=== PATIENT | female | born 1945 | race Caucasian/White ===

== ENCOUNTER 2017-05-24 08:37 | Day surgery (SDC) | payer MEDICARE, OTHER ==
[~2017-05-24] VITALS: Ht 172.7 cm; Wt 77.1 kg
[~2017-05-24 08:37] MED LIST: AMLODIPINE BESYL5 MG PO; HYDROCHLOROTH12.5 MG PO
== END 2017-05-24 10:43 | disposition home or self-care (01) ==
LOC: DS 08:37 → DSVR 08:37 → OPS 08:37 → DS 09:45 → OPS 10:43
PROVIDERS: Ophthalmology
PROC: 08RK3JZ Replacement of Left Lens with Synthetic Substitute, Percutaneous Approach (ICD-10-PCS; principal; 2017-05-24 09:45)
DX: H25.813 Combined forms of age-related cataract, bilateral (principal); I10 Essential (primary) hypertension; M19.90 Unspecified osteoarthritis, unspecified site; Z98.890 Other specified postprocedural states; Z79.899 Other long term (current) drug therapy
CPT/HCPCS: J2250

== ENCOUNTER 2019-12-28 10:02 | Emergency (ER) | payer MEDICARE, OTHER ==
[~2019-12-28] VITALS: Ht 172.7 cm; Wt 68.0 kg
[~2019-12-28 10:02] MED LIST changes: +AFINITOR10 MG PO; +AVASTIN25 MG/1 ML IV; +CARBOPLATI10 MG/1 ML IV; +DEXAMETHASONE4 MG PO; +FEMARA2.5 MG PO; +IBUPROFEN800 MG PO; +LOMOTIL TABLET1 EACH PO; +LORAZEPAM1 MG PO; +MULTIVITAMINS1 EAC7 PO; +NIACINAMIDE500 MG PO; +NORCO 5-325 TA1 EACH PO; +ONDANSETRON ODT8 MG PO; +PACLITAXEL6 MG/1 ML IV; +UNISOM25 MG PO
--- OUTSIDE RECORDS SUMMARY | 2019-12-28 10:06 | XMS ---
PreManage Notification: LUIS IGLESIAS Security Backer Up Events No recent Security Events currently on file CRITERIA MET - PDMP CARE PROVIDERS ADRIANNE Balderrama MD,CHILANGO Lot Boss/Tooler Current PHONE: [phone] Lisa has no Care Guidelines for this patient. E.DSharon VISIT COUNT (12 MO.) 1 ELADIO Bishop TOTAL 1 NOTE: Visits indicate total known visits. ED/UCC VISIT TRACKING (12 MO.) 12/28/2019 10:03 ELADIO Tapia [place] TYPE: Emergency COMPLAINT: - WEAKNESS, DIZZYNESS INPATIENT VISIT TRACKING (12 MO.) 04/12/2019 08:28 Darren Lu [place] TYPE: Surgery DIAGNOSES: - Malignant neoplasm of uterus, part unspecified [email or web address]
[2019-12-28] MEDS ORDERED: ZOLPIDEM TARTRA10 MG PO (10:29)
--- NOTE | 2019-12-28 21:48 | EKG ---
[facility] [address] [facility] [place], [place] [address] Signed Normal sinus rhythm Normal ECG No previous ECGs available Confirmed by GWYN LIMA MD ([id number]) on 12/28/2019 9:47:47 PM Electronically Signed By: GWYN LIMA MD 12/28/19 2148 PATIENT NAME: LUIS IGLESIAS JOSSE Electrocardiogram DATE OF : 43 PHYSICIAN: GWYN LIMA MD REPORT #: [id number] REPORT IS CONFIDENTIAL AND NOT TO BE RELEASED WITHOUT AUTHORIZATION
== END 2019-12-28 14:30 | disposition home or self-care (01) ==
LOC: ED 10:02
DX: I95.1 Orthostatic hypotension (principal); E86.0 Dehydration; I10 Essential (primary) hypertension; Z91.013 Allergy to seafood; Z79.899 Other long term (current) drug therapy
CPT/HCPCS: 80053; 81001; 83735; 84484; 85025; 93005; 93010; 96361; 96374; 99285-25; J1100; J7030

== ENCOUNTER 2020-01-03 14:01 | Emergency (ER) | payer MEDICARE, OTHER ==
[~2020-01-03] VITALS: Ht 172.7 cm; Wt 68.0 kg
--- OUTSIDE RECORDS SUMMARY | ~2020-01-03 | XMS | Encounter Summary ---
Demographics + + + | Address | [address] | | | [place] [address] | + + + | Home Phone | | + + + | Preferred Language | Unknown | + + + | Marital Status | | + + + | Mandaen Affiliation | Unknown | + + + | Race | White | + + + | Ethnic Group | Not or | + + + Author + + + | Author | [facility] | | | and [place] | + + + | Organization | [facility] | | | and [place] | + + + | Address | Unknown | + + + | Phone | Unavailable | + + + Support + + +---------+ + | Name | Relationship | Address | Phone | + + +---------+ + | Sheron Bucio | ECON | Unknown | | + + +---------+ + Care Team Providers + +------+ + | Care Camera Technician Name | Role | Phone | + +------+ + | Tom Sheppard MD | PCP | | + +------+ + Reason for Referral Diagnostic/Screening (Routine) +--------+--------+ + + + + | Status | Reason | Specialty | Diagnoses / | Referred By | Referred To | | | | | Procedures | Contact | Contact | +--------+--------+ + + + + | Closed | | Radiology | Diagnoses | Phil, | [address] | | | | | Malignant | [place] | [address] | | | | | melanoma of | [place], [place] | [place], | | | | | uvea of | [address] | [place] [address] | | | | | right eye | [facility] | Phone: | | | | | (HCC) | [place], [place] | [phone] | | | | | Procedures | [address] | Fax: | | | | | CT Chest | Phone: | [phone] | | | | | Abdomen | [phone] | | | | | | Pelvis w | Fax: | | | | | | Contrast | [phone] | | +--------+--------+ + + + + Reason for Visit Diagnostic/Screening (Routine) +--------+--------+ + + + + | Status | Reason | Specialty | Diagnoses / | Referred By | Referred To | | | | | Procedures | Contact | Contact | +--------+--------+ + + + + | Closed | | Radiology | Diagnoses | Phil, | [address] | | | | | Malignant | [place] | [address] | | | | | melanoma of | [place] | [place], | | | | | uvea of | [address] | [place] [address] | | | | | right eye | [address] [facility] | Phone: | | | | | (HCC) | [place], [place] | [phone] | | | | | Procedures | [address] | Fax: | | | | | CT Chest | Phone: | [phone] | | | | | Abdomen | [phone] | | | | | | Pelvis w | Fax: | | | | | | Contrast | [phone] | | +--------+--------+ + + + + Encounter Details +--------+ + + + + | Date | Type | Department | Care Team | Description | +--------+ + + + + | 11/18/ | Hospital | [facility] | [place] Villarreal | Malignant melanoma | | 2017 | Encounter | [facility] [address] | [place] | of uvea of right eye | | | | [address] [place], | [address] [facility] | ([facility]) | | | | [place] [address] | [place] [address] | | | | | [phone] | [phone] | | | | | | | | +--------+ + + + + Social History + +-------+ +--------+------+ | Tobacco Use | Types | Packs/Day | Years | Date | | | | | Used | | + +-------+ +--------+------+ | Never Smoker | | | | | + +-------+ +--------+------+ + + +---------+ + | Alcohol Use | Drinks/Week | oz/Week | Comments | + + +---------+ + | Yes | 1 Glasses of wine | 4.0 | | | | 1 Cans of beer 2 | | | | | Shots of liquor | | | + + +---------+ + + + + | Sex Assigned at | Date Recorded | | | | + + + | Not on file | | + + + documented as of this encounter Medications at Time of Discharge + + + +---------+--------+ + | Medication | Sig | Dispensed | Refills | Start | End Date | | | | | | Date | | + + + +---------+--------+ + | amLODIPine | Take 2.5 mg by mouth | | 0 | | | | (NORVASC) 2.5 mg | Daily. | | | | | | tablet | | | | | | + + + +---------+--------+ + | Cholecalciferol | Take 1 capsule by | | 0 | | | | (VITAMIN D3) 400 | mouth Daily. | | | | | | UNITS CAPS | | | | | | + + + +---------+--------+ + | GLUCOSAMINE | Take 2 tablets by | | 0 | | | | CHONDROITIN COMPLX | mouth Daily. | | | | | | PO | 750mg-600mg | | | | | | | respectivley | | | | | + + + +---------+--------+ + | | Take 12.5 mg by | | 0 | | | | hydrochlorothiazide | mouth Daily. | | | | | | 25 mg tablet | | | | | | + + + +---------+--------+ + | MULTIPLE VITAMIN | Take by mouth. | | 0 | | | | PO | | | | | | + + + +---------+--------+ + | naproxen sodium | Take 440 mg by mouth | | 0 | | | | (ALEVE) 220 MG | as needed. | | | | | | tablet | | | | | | + + + +---------+--------+ + documented as of this encounter Plan of Treatment Not on filedocumented as of this encounter Procedures + +--------+ + + + | Procedure Name | Priori | Date/Time | Associated Diagnosis | Comments | | | ty | | | | + +--------+ + + + | CT CHEST ABDOMEN | Routin | 11/18/2016 | Malignant melanoma | Results for this | | PELVIS W CONTRAST | e | 11:00 AM | of uvea of right | procedure are in the | | | | PDT | eye (HCC) | results section. | + +--------+ + + + | POC BLOOD GASES | Routin | 11/18/2016 | | Results for this | | | e | 10:53 AM | | procedure are in the | | | | PDT | | results section. | + +--------+ + + + documented in this encounter Results CT Chest Abdomen Pelvis w Contrast (11/18/2016 11:00 AM PDT) + + | Specimen | + + | | + + + + + | Narrative | Performed At | + + + | CT CHEST ABDOMEN PELVIS W CONTRAST 11/18/2016 10:50 AM HISTORY: | [facility] | | Melanoma of right eye uvea, pre surgical check. COMPARISON: None. | | | PROTOCOL: Axial images of the chest, abdomen, and pelvis were | | | obtained after uneventful administration of 90 mL Omnipaque 350 and | | | oral contrast. Coronal and sagittal reformations were acquired. | | | CHEST FINDINGS: Neck base is normal. The heart is of normal size. | | | There is minimal atherosclerosis of the aorta. The pulmonary | | | arteries are unremarkable. SVC is normal. No enlarged lymph nodes | | | are seen in the mediastinum, gildardo, or axillae. Trachea and esophagus | | | are normal. Mild scarring are visualized in the lung apices. There | | | is no evidence for pleural effusion or pneumothorax. | | | ABDOMEN/PELVIS FINDINGS: The liver demonstrates normal parenchyma. | | | The gallbladder is normal. Biliary ducts are unremarkable. The | | | spleen is unremarkable. The pancreas demonstrates normal parenchyma | | | and a normal pancreatic duct. Adrenal glands are normal. The | | | right kidney and visualized ureter are normal. The left kidney and | | | visualized ureter are normal. Stomach, small bowel, and terminal | | | ileum are normal. The appendix has a normal appearance. Colon is | | | unremarkable. There is mild atherosclerosis of the aorta. Minimal | | | atherosclerosis are noted of the iliac arteries. Mild atherosclerosis | | | is seen of the left common femoral artery. There is no significant | | | abnormality in the portal veins, mesenteric veins, or systemic veins. | | | No enlarged lymph nodes are visualized within the omentum or | | | retroperitoneum. There is no evidence for ascites or free air. | | | Bladder is normal. The uterus has a bulky and heterogeneous | | | appearance likely outside energy sales representatives of the presence of fibroids. There | | | appears to be a necrotic fibroid with low-attenuation center in the | | | right fundus measuring 2.6 cm. BODY WALL FINDINGS: No obvious | | | lesions are visualized in the subcutaneous tissues. The osseous | | | structures, particularly the spine, demonstrate a somewhat | | | heterogeneous appearance likely due to diffuse osteopenia. There is | | | mild spondylosis. Moderate disc narrowing is at L2-3. Severe disc | | | narrowing is at L3-4 with endplate sclerosis. IMPRESSION - No | | | evidence for metastatic disease to the chest, abdomen, or pelvis. If | | | clinically indicated, a PET CT scan can be considered for further | | | evaluation. Fibroid uterus. An ultrasound can considered for | | | further characterization if clinically indicated. Dictated and | | | Signed by: Jaiden Mcelroy MD Electronically signed: 11/18/2016 2:48 | | | PM | | + + + + + | Procedure Note | + + | Tin, Rad Results In - 11/18/2016 2:[address] CHEST ABDOMEN PELVIS W CONTRAST | | 11/18/2016 10:50 AMHISTORY: Melanoma of right eye uvea, pre surgical check.COMPARISON: | | None.PROTOCOL: Axial images of the chest, abdomen, and pelvis were obtained | | afteruneventful administration of 90 mL Omnipaque 350 and oral contrast. Coronal | | andsagittal reformations were acquired.CHEST FINDINGS:Neck base is normal.The heart is | | of normal size. There is minimal atherosclerosis of the aorta. Thepulmonary arteries are | | unremarkable. SVC is normal.No enlarged lymph nodes are seen in the mediastinum, gildardo, | | or axillae. Tracheaand esophagus are normal.Mild scarring are visualized in the lung | | apices. There is no evidence forpleural effusion or pneumothorax.ABDOMEN/PELVIS | | FINDINGS:The liver demonstrates normal parenchyma. The gallbladder is normal. | | Biliaryducts are unremarkable.The spleen is unremarkable. The pancreas demonstrates | | normal parenchyma and anormal pancreatic duct. Adrenal glands are normal.The right | | kidney and visualized ureter are normal.The left kidney and visualized ureter are | | normal.Stomach, small bowel, and terminal ileum are normal. The appendix has a | | normalappearance. Colon is unremarkable.There is mild atherosclerosis of the aorta. | | Minimal atherosclerosis are noted ofthe iliac arteries. Mild atherosclerosis is seen of | | the left common femoralartery. There is no significant abnormality in the portal veins, | | mesentericveins, or systemic veins. No enlarged lymph nodes are visualized within the | | omentum or retroperitoneum.There is no evidence for ascites or free air.Bladder is | | normal.The uterus has a bulky and heterogeneous appearance likely outside energy sales representatives of | | thepresence of fibroids. There appears to be a necrotic fibroid withlow-attenuation | | center in the right fundus measuring 2.6 cm.BODY WALL FINDINGS:No obvious lesions are | | visualized in the subcutaneous tissues. The osseousstructures, particularly the spine, | | demonstrate a somewhat heterogeneousappearance likely due to diffuse osteopenia. There | | is mild spondylosis. Moderatedisc narrowing is at L2-3. Severe disc narrowing is at L3-4 | | with endplatesclerosis.IMPRESSION -No evidence for metastatic disease to the chest, | | abdomen, or pelvis. Ifclinically indicated, a PET CT scan can be considered for further | | evaluation.Fibroid uterus. An ultrasound can considered for further characterization | | ifclinically indicated.Dictated and Signed by: Jaiedn Mcelroy MD Electronically signed: | | 11/18/2016 2:48 PM | | | |The left kidney and visualized ureter are normal. | | | |Stomach, small bowel, and terminal ileum are normal. The appendix has a normal | |appearance. Colon is unremarkable. | | | |There is mild atherosclerosis of the aorta. Minimal atherosclerosis are noted of | |the iliac arteries. Mild atherosclerosis is seen of the left common femoral | |artery. There is no significant abnormality in the portal veins, mesenteric | |veins, or systemic veins. | | | |No enlarged lymph nodes are visualized within the omentum or retroperitoneum. | | | |There is no evidence for ascites or free air. | | | |Bladder is normal. | | | |The uterus has a bulky and heterogeneous appearance likely outside energy sales representatives of the | |presence of fibroids. There appears to be a necrotic fibroid with | |low-attenuation center in the right fundus measuring 2.6 cm. | | | |BODY WALL FINDINGS: | |No obvious lesions are visualized in the subcutaneous tissues. The osseous | |structures, particularly the spine, demonstrate a somewhat heterogeneous | |appearance likely due to diffuse osteopenia. There is mild spondylosis. Moderate | |disc narrowing is at L2-3. Severe disc narrowing is at L3-4 with endplate | |sclerosis. | | | |IMPRESSION - | |No evidence for metastatic disease to the chest, abdomen, or pelvis. If | |clinically indicated, a PET CT scan can be considered for further evaluation. | | | |Fibroid uterus. An ultrasound can considered for further characterization if | |clinically indicated. | | | |Dictated and Signed by: Jaiden Mcelroy MD | | Electronically signed: 11/18/2016 2:48 PM | + + + +---------+ + + | Performing | Address | City/State/Zipcode | Phone Number | | Organization | | | | + +---------+ + + | [facility] | | | | + +---------+ + + POC Blood Gases (11/18/2016 10:53 AM PDT) + +-------+ + + + | Component | Value | Ref Range | Performed | Pathologist | | | | | At | Signature | + +-------+ + + + | Specimen | Vein | | [facility] | | | Source | | | [facility] | | | | | | [facility] | | | | | | C[facility] - | | | | | | LABORATORY | | + +-------+ + + + | Creatinine, | 0.8 | 0.6 - 1.3 mg/dL | [facility] | | | POC | | | [facility] | | | | | | MEDICAL | | | | | | CENTER - | | | | | | LABORATORY | | + +-------+ + + + | eGFR, | 71 | 1 - 401 | [facility] | | | non- | | mL/min/1.73m2 | [facility] | | | [place] | | | MEDICAL | | | | | | CENTER - | | | | | | LABORATORY | | + +-------+ + + + + + | Specimen | + + | | + + + + + + + | Performing | Address | City/State/Zipcode | Phone Number | | Organization | | | | + + + + + | [facility] | [address] | [place] | [phone] | | 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
--- OUTSIDE RECORDS SUMMARY | ~2020-01-03 | XMS | Encounter Summary ---
Demographics + + + | Address | [address] | | | [place] [address] | + + + | Home Phone | | + + + | Preferred Language | Unknown | + + + | Marital Status | Single | + + + | Episcopal Affiliation | NON | + + + | Race | White | + + + | Ethnic Group | Not or | + + + Author + + + | Author | [facility] | + + + | Organization | [facility] | + + + | Address | Unknown | + + + | Phone | Unavailable | + + + Support + + +---------+ + | Name | Relationship | Address | Phone | + + +---------+ + | Sheron Rivera | ECON | Unknown | | + + +---------+ + Care Team Providers + +------+ + | Care Family Support Coordinator Name | Role | Phone | + +------+ + | Tom Sheppard MD | PCP | | + +------+ + Reason for Visit + + + | Reason | Comments | + + + | Care Coordination | | + + + Encounter Details +--------+ + + + + | Date | Type | Department | Care Team | Description | +--------+ + + + + | 11/10/ | Documentati | [facility] | Jennifer Hall, | Care Coordination | | 2016 | on | [facility] | ,PhD [address] | | | | | Oncology at [facility] | [address] | | | | | [address] | [place], [place] | | | | | [address] [facility] [address] | [address] | | | | | [place], [address] [place] [address] | [phone] | | | | | [place] [address] | | | | | | [phone] | | | +--------+ + + + + Social History + +-------+ +--------+------+ | Tobacco Use | Types | Packs/Day | Years | Date | | | | | Used | | + +-------+ +--------+------+ | Never Smoker | | | | | + +-------+ +--------+------+ + +---+---+---+ | Smokeless Tobacco: | | | | | Never Used | | | | + +---+---+---+ + + +---------+ + | Alcohol Use | Drinks/Week | oz/Week | Comments | + + +---------+ + | Yes | | | | + + +---------+ + + + + | Sex Assigned at | Date Recorded | | | | + + + | Not on file | | + + + documented as of this encounter Miscellaneous Notes Telephone Encounter - Taina Prescott - 11/21/2016 12:13 PM PDT11/21/16 Received pre-op with clearance from PCP. Phoned Patti who was heading home from her Radiation Oncology consult t his morning. she is ready to schedule plaque eye surgery. She is not available to schedule on 12/05/16 as her sister cannot bring her due to family wedding. Plan Schedule I-125 plaq ue on 12/12/16. 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 We discussed preparation for radioactive eye plaque treatment including visiting her PCP f or pre-op and returning to [facility] for a consultation with the Radiation Oncology department. All questions were answered and I believe the patient has a good understanding of what is re quired and will proceed. I phoned PCP office and spoke with Audrey. Faxed requested for pre-operative care. Audrey curry call the patient to scheduled appointment with PCP. Fabienne has placed the referral to Radiation Oncology. Phoned Patti and left a message with the above information. DANYELLE Menchaca documented in this encounter Plan of Treatment +--------+---------+ + + + | Date | Type | Specialty | Care Team | Description | +--------+---------+ + + + | 03/02/ | Office | Ophthalmology | Jennifer Hall, | | | 2019 | Visit | | ,PhD [address] | | | | [address] | | | | | | [place], [place] | | | | | | [address] | | | | | | [phone] | | | | | | | | +--------+---------+ + + + documented as of this encounter Visit Diagnoses Not on filedocumented in this encounter
--- OUTSIDE RECORDS SUMMARY | ~2020-01-03 | XMS | Encounter Summary ---
Demographics + + + | Address | [address] | | | [place] [address] | + + + | Home Phone | | + + + | Preferred Language | Unknown | + + + | Marital Status | Single | + + + | Mandaen Affiliation | NON | + + + | Race | White | + + + | Ethnic Group | Not or | + + + Author + + + | Author | [facility] | + + + | Organization | [facility] | + + + | Address | Unknown | + + + | Phone | Unavailable | + + + Support + + +---------+ + | Name | Relationship | Address | Phone | + + +---------+ + | Sheron Rivera | ECON | Unknown | | + + +---------+ + Care Team Providers + +------+ + | Care Road Machinery Inspector Name | Role | Phone | + +------+ + | Tom Sheppard MD | PCP | | + +------+ + Encounter Details +--------+ + + + + | Date | Type | Department | Care Team | Description | +--------+ + + + + | 08/21/ | MyChart | [facility] | Jennifer Hall, | Mm | | 2019 | Encounter | [facility] | ,PhD [address] | | | | | Oncology at [facility] | [address] | | | | | [address] | [place], [place] | | | | | [address] | [address] | | | | | [place], [address] floor | [phone] | | | | | [place] [address] | | | | | | [phone] | | | +--------+ + + + [...] + + +---------+ + | Yes | 2 Standard drinks | 2.0 | wine with dinner | | | or equivalent | | | + + +---------+ + + + + | Sex Assigned at | Date Recorded | | | | + + + | Not on file | | + + + documented as of this encounter Plan of Treatment +--------+---------+ + + + | Date | Type | Specialty | Care Team | Description | +--------+---------+ + + + | 03/02/ | Office | Ophthalmology | Jennifer Hall, | | | 2019 | Visit | | MDPhD [address] | | | | | | [address] | | | | | | [place], [place] | | | | | | [address] | | | | | | [phone] | | | | | | | | +--------+---------+ + + + documented as of this encounter Visit Diagnoses Not on filedocumented in this encounter"
--- OUTSIDE RECORDS SUMMARY | ~2020-01-03 | XMS | Encounter Summary ---
Demographics + + + | Address | [address] | | | [place] [address] | + + + | Home Phone | | + + + | Preferred Language | Unknown | + + + | Marital Status | | + + + | Denominational Affiliation | Unknown | + + + | Race | White | + + + | Ethnic Group | Not or | + + + Author + + + | Author | [facility] | | | and [place] | + + + | Organization | [facility] | | | [...] Team Providers + +------+ + | Care Chain Hooker Name | Role | Phone | + +------+ + | Tom Sheppard MD | PCP | | + +------+ + Reason for Visit Service/Procedure (Routine) + +--------+ + + + + | Status | Reason | Specialty | Diagnoses / | Referred By | Referred To | | | | | Procedures | Contact | Contact | + +--------+ + + + + | Authorized | | Infusion | Diagnoses | Brett | [facility] | | | | Therapy | Endometrial | Bimal Ruiz, | Infusion [address] | | | | | cancer | PharmD [address] | [address] [place] | | | | | (HCC) | [address] | [place], | | | | | Procedures | [place] | [place] [address] | | | | | [place] | [place] | Phone: | | | | | [place] | [address] | [phone] | | | | | [place] | Phone: | Fax: | | | | | [place] | [phone] | [phone] | | | | | DEXAMETHASON | Fax: | | | | | | E, .25 MG | [phone] | | | | | | AL | | | | | | | FOSAPREPITAN | | | | | | | T INJECTION, | | | | | | | 1 MG AL | | | | | | | LORAZEPAM | | | | | | | INJECTION, 2 | | | | | | | MG AL | | | | | | | INJECTION, | | | | | | | FAMOTIDINE, | | | | | | | 20 MG AL | | | | | | | DIPHENHYDRAM | | | | | | | INE HCL | | | | | | | INJECTIO, 50 | | | | | | | MG AL | | | | | | | PACLITAXEL | | | | | | | INJECTION, | | | | | | | 1MG AL | | | | | | | CARBOPLATIN | | | | | | | INJECTION, | | | | | | | 50 MG AL | | | | | | | ADRENALIN | | | | | | | EPINEPHRINE | | | | | | | INJECT, .1 | | | | | | | MG AL | | | | | | | METHYLPREDNI | | | | | | | SOLONE | | | | | | | INJECTION, | | | | | | | 125 MG AL | | | | | | | ALBUTEROL | | | | | | | COMP CON, 1 | | | | | | | MG AL | | | | | | | NORMAL | | | | | | | SALINE | | | | | | | SOLUTION | | | | | | | INFUS, 500 | | | | | | | ML AL | | | | | | | NORMAL | | | | | | | SALINE | | | | | | | SOLUTION | | | | | | | INFUS, 250 | | | | | | | ML AL | | | | | | | STERILE | | | | | | | WATER/SALINE | | | | | | | , 10 ML AL | | | | | | | CHEMOTHER, | | | | | | | IV PUSH,EA | | | | | | | ADD DRUG AL | | | | | | | CHEMOTHER, | | | | | | | IV INFUSION, | | | | | | | 1 HR AL | | | | | | | CHEMOTHER, | | | | | | | IV INFUSION, | | | | | | | EA HR AL | | | | | | | CHEMOTHER,NO | | | | | | | N-HORMONE | | | | | | | ANTI-NEOPL, | | | | | | | SUB-Q/IM AL | | | | | | | CHEMOTHER | | | | | | | HORMON | | | | | | | ANTINEOPL | | | | | | | SUB-Q/IM AL | | | | | | | IV | | | | | | | INFUSION, | | | | | | | HYDRATION, | | | | | | | 31-60 MIN | | | | | | | AL IV | | | | | | | INFUSION, | | | | | | | HYDRATION, | | | | | | | EA ADD HOUR | | | | | | | AL INJ | | | | | | | MVASI 10 MG | | | + +--------+ + + + + Encounter Details +--------+ + + + + | Date | Type | Department | Care Team | Description | +--------+ + + + + | 10/10/ | Hospital | [facility] | Marc Denny | Endometrial cancer | | 2020 | Encounter | MED CTR CHE[facility] | MD Stephanie [address] | (HCC) (Primary Dx) | | | | INFUSION [address] [place], [place] | | | | | [place], | [address] | | | | | [place] [address] | | | | | | [phone] | | | +--------+ + + + [...] + + documented as of this encounter Last Filed Vital Signs + + + + + | Vital Sign | Reading | Time Taken | Comments | + + + + + | Blood Pressure | 140/68 | 10/11/2019 1:31 PM | | | | | PDT | | + + + + + | Pulse | 94 | 10/11/2019 1:31 PM | | | | | PDT | | + + + + + | Temperature | 36.9 C (98.4 F) | 10/11/2019 1:31 PM | | | | | PDT | | + + + + + | Respiratory Rate | 18 | 10/11/2019 1:31 PM | | | | | PDT | | + + + + + | Oxygen Saturation | 98% | 10/11/2019 1:31 PM | | | | | PDT | | + + + + + | Inhaled Oxygen | - | - | | | Concentration | | | | + + + + + | Weight | - | - | | + + + + + | Height | - | - | | + + + + + | Body Mass Index | - | - | | + + + + + documented in this encounter Medications at Time of Discharge + + + +---------+ + + | Medication | Sig | Dispensed | Refills | Start | End Date | | | | | | Date | | + + + +---------+ + + | amLODIPine | Take 2.5 mg by mouth | | 0 | | | | (NORVASC) 2.5 mg | Daily. | | | | | | tablet | | | | | | + + + +---------+ + + | Cholecalciferol | Take 1 capsule by | | 0 | | | | (VITAMIN D3) 400 | mouth Daily. | | | | | | UNITS CAPS | | | | | | + + + +---------+ + + | GLUCOSAMINE | Take 2 tablets by | | 0 | | | | CHONDROITIN COMPLX | mouth Daily. | | | | | | PO | 750mg-600mg | | | | | | | respectivley | | | | | + + + +---------+ + + | | Take 12.5 mg by | | 0 | | | | hydrochlorothiazide | mouth Daily. | | | | | | 25 mg tablet | | | | | | + + + +---------+ + + | LORazepam (ATIVAN) | TAKE 1 TABLET BY | | 0 | 09/20/19 | | | 1 mg tablet | MOUTH EVERY 4 HOURS | | | 20 | | | | NEEDED FOR | | | | | | | NAUSEA, ANXIETY, AND | | | | | | | RESTLESSNESS. | | | | | + + + +---------+ + + | MULTIPLE VITAMIN | Take by mouth. | | 0 | | | | PO | | | | | | + + + +---------+ + + | naproxen sodium | Take 440 mg by mouth | | 0 | | | | (ALEVE) 220 MG | as needed. | | | | | | tablet | | | | | | + + + +---------+ + + documented as of this encounter Progress Notes Francesca Tran RN - 10/11/2019 1:45 PM PDTDc/d amb with solar design engineer. Has return appts. documented in this encounter Miscellaneous Notes Treatment Plan - Francesca Tran RN - 10/11/2019 8:14 AM PDTViewed chart for weight, v ital signs and lab results. Also viewed chart for completion of medication and allergy revi ew prior to treatment.Francesca Tran RNDATE/TIME: 10/11/2019 8:15 AM PDTElectronically si gned by Francesca Tran RN at 10/11/2019 8:15 AM PDTdocumented in this encounter Plan of Treatment Not on filedocumented as of this encounter Procedures + +--------+ + + + | Procedure Name | Priori | Date/Time | Associated Diagnosis | Comments | | | ty | | | | + +--------+ + + + | CBC WITH | STAT | 10/11/2019 | Endometrial cancer | Results for this | | DIFFERENTIAL | | 7:30 AM | (HCC) | procedure are in the | | | | PDT | | results section. | + +--------+ + + + | COMPREHENSIVE | STAT | 10/11/2019 | Endometrial cancer | Results for this | | METABOLIC PANEL | | 7:30 AM | (HCC) | procedure are in the | | | | PDT | | results section. | + +--------+ + + + documented in this encounter Results Comprehensive Metabolic Panel (10/11/2019 7:30 AM PDT) + + + + + + | Component | Value | Ref Range | Performed | Pathologist | | | | | At | Signature | + + + + + + | Na | 139 | 136 - 145 | [facility] | | | | | mmol/L | [facility] | | | | | | [facility] | | | | | | [facility] - | | | | | | LABORATORY | | + + + + + + | K | 3.7 | 3.4 - 5.1 | [facility] | | | | | mmol/L | [facility] | | | | | | [facility] | | | | | | [facility] - | | | | | | LABORATORY | | + + + + + + | Cl | 104 | 98 - 107 mmol/L | [facility] | | | | | | [facility] | | | | | | [facility] | | | | | | [facility] - | | | | | | LABORATORY | | + + + + + + | CO2 | 28 | 20 - 31 mmol/L | [facility] | | | | | | [facility] | | | | | | [facility] | | | | | | [facility] - | | | | | | LAB[facility]ATORY | | + + + + + + | Anion Gap | 7 | 3 - 16 mmol/L | [facility] | | | | | | [facility] | | | | | | [facility] | | | | | | [facility] - | | | | | | LAB[facility]ATORY | | + + + + + + | Glucose | 100 | 60 - 106 mg/dL | [facility] | | | | | | [facility] | | | | | | [facility] | | | | | | [facility] - | | | | | | LABORATORY | | + + + + + + | BUN | 17 | 9 - 23 mg/dL | [facility] | | | | | | [facility] | | | | | | [facility] | | | | | | C[facility] - | | | | | | LABORATORY | | + + + + + + | Creatinine | 0.89 | 0.55 - 1.02 | [facility] | | | | | mg/dL | [facility] | | | [facility] | | [facility] | | | | | | CENTER - | | | | | | LABORATORY | | + + + + + + | eGFR, | >60Comment: GLOMERULAR | >=60 | [facility] | | | non- | FILTRATION | mL/min/1.73m2 | [facility] | | | [place] | RATE,ESTIMATED | | MEDICAL | | | | mL/min/1.91h8Xjko than | | CENTER - | | | | 60 Chronic kidney | | LABORATORY | | | | disease,if found over a | | | | | | 3-month period.Less than | | | | | | 15 Kidney failureFor | | | | | | | | | | | | Americans,multiply the | | | | | | calculated GFR by 1.21. | | | | | | | | | | + + + + + + | Calcium | 9.9 | 8.7 - 10.4 | [facility] | | | | | mg/dL | [facility] | | | | | | MEDICAL | | | | | | CENTER - | | | | | | LABORATORY | | + + + + + + | Albumin | 4.5 | 3.2 - 4.8 g/dL | [facility] | | | | | | [facility] | | | | | | MEDICAL | | | | | | CENTER - | | | | | | LABORATORY | | + + + + + + | Bilirubin | 0.3 | 0.3 - 1.2 mg/dL | [facility] | | | Total | | | [facility] | | | | | | MEDICAL | | | | | | CENTER - | | | | | | LABORATORY | | + + + + + + | Total | 7.3 | 5.7 - 8.2 g/dL | [facility] | | | Protein | | | [facility] | | | | | | MEDICAL | | | | | | CENTER - | | | | | | LABORATORY | | + + + + + + | AST | 34 | 0 - 34 U/L | [facility] | | | | | | [facility] | | | | | | MEDICAL | | | | | | CENTER - | | | | | | LABORATORY | | + + + + + + | ALT | 36 | 10 - 49 U/L | [facility] | | | | | | [facility] | | | | | | MEDICAL | | | | | | CENTER - | | | | | | LABORATORY | | + + + + + + | Alkaline | 164 (H) | 46 - 116 U/L | [facility] | | | Phosphatase | | | [facility] | | | | | | MEDICAL | | | | | | CENTER - | | | | | | LABORATORY | | + + + + + + | Globulin | 2.8 | 2.1 - 3.8 g/dL | [facility] | | | | | | [facility] | | | | | | MEDICAL | | | | | | CENTER - | | | | | | LABORATORY | | + + + + + + | Albumin/Marlys | 1.6 | 0.8 - 1.9 | [facility] | | | bulin Ratio | | | [facility] | | | | | | [facility] | | | | | | CENTER - | | | | | | LABORATORY | | + + + + + + | BUN/Creatin | 19.1 | | [facility] | | | ine Ratio | | | [facility] | | | [facility] | | [facility] | | | | | | CENTER - | | | | | | LABORATORY | | + + + + + + + + | Specimen | + + | Blood | + + + + + + + | Performing | Address | City/State/Zipcode | Phone Number | | Organization | | | | + + + + + | [facility] | [address] | [place] | [phone] | | [facility] | | [address] | | | - LABORATORY | | | | + + + + + CBC with Differential (10/11/2019 7:30 AM PDT) + + + + + + | Component | Value | Ref Range | Performed | Pathologist | | | | | At | Signature | + + + + + + | White Blood | 7.0 | 4.0 - 11.0 K/uL | [facility] | | | Cells | | | [facility] | | | | | | MEDICAL | | | | | | CENTER - | | | | | | LABORATORY | | + + + + + + | Red Blood | 4.29 | 3.70 - 5.20 | [facility] | | | Cells | | M/uL | [facility] | | | | | | MEDICAL | | | | | | CENTER - | | | | | | LABORATORY | | + + + + + + | Hemoglobin | 12.9 | 11.5 - 16.0 | [facility] | | | | | g/dL | [facility] | | | | | | MEDICAL | | | | | | CENTER - | | | | | | LABORATORY | | + + + + + + | Hematocrit | 39.0 | 34.0 - 47.0 % | [facility] | | | | | | [facility] | | | | | | [facility]ICAL | | | | | | CENTER - | | | | | | LABORATORY | | + + + + + + | MCV | 90.9 | 83.0 - 101.0 fL | [facility] | | | | | | [facility] | | | | | | [facility]ICAL | | | | | | CENTER - | | | | | | LABORATORY | | + + + + + + | MCH | 30.1 | 28.0 - 35.0 pg | [facility] | | | | | | [facility] | | | | | | [facility] | | | | | | C[facility] - | | | | | | LABORATORY | | + + + + + + | MCHC | 33.1 | 32.0 - 36.0 | [facility] | | | | | g/dL | [facility] | | | | | | MEDICAL | | | | | | CENTER - | | | | | | LABORATORY | | + + + + + + | RDW-CV | 23.6 (H) | <15.0 % | [facility] | | | | | | [facility] | | | | | | [facility] | | | | | | CENTER - | | | | | | LABORATORY | | + + + + + + | RDW-SD | 75.0 (H) | 35.1 - 46.3 fL | [facility] | | | | | | [facility] | | [facility] | | | [facility] | | | | | | CENTER - | | | | | | LABORATORY | | + + + + + + | Platelet | 159 | 140 - 440 K/uL | [facility] | | | Count | | | [facility] | | | | | | MEDICAL | | | | | | CENTER - | | | | | | LABORATORY | | + + + + + + | MPV | 9.0 | 6.5 - 12.4 fL | [facility] | | | | | | [facility] | | | | | | MEDICAL | | | | | | CENTER - | | | | | | LABORATORY | | + + + + + + | % | 61.4 | 45.0 - 82.0 % | [facility] | | | Neutrophils | | | [facility] | | | | | | MEDICAL | | | | | | CENTER - | | | | | | LABORATORY | | + + + + + + | % | 24.8 | 20.0 - 45.0 % | [facility] | | | Lymphocytes | | | [facility] | | | | | | MED[facility] | | | | | | CENTER - | | | | | | LABORATORY | | + + + + + + | % Monocytes | 12.1 (H) | 4.0 - 12.0 % | [facility] | | | | | | [facility] | | | | | | MEDICAL | | | | | | CENTER - | | | | | | LABORATORY | | + + + + + + | % | 0.4 | 0.0 - 5.0 % | [facility] | | | Eosinophils | | | [facility] | | | | | | MEDICAL | | | | | | CENTER - | | | | | | LABORATORY | | + + + + + + | % Basophils | 0.7 | 0.0 - 1.0 % | [facility] | | | | | | [facility] | | | | | | MEDICAL | | | | | | CENTER - | | | | | | LABORATORY | | + + + + + + | % Immature | 0.6 (H)Comment: | 0.0 - 0.4 % | [facility] | | | Granulocyte | Preliminary studies have | | [facility] | | | s | indicated the IG% | | MEDICAL | | | | and/or IG# show promise | | CENTER - | | | | as an early indicator | | LABORATORY | | | | for infection. | | | | + + + + + + | Absolute | 4.28 | 1.80 - 8.50 | [facility] | | | Neutrophils | | K/uL | [facility] | | | | | | MEDICAL | | | | | | CENTER - | | | | | | LABORATORY | | + + + + + + | Absolute | 1.73 | 0.60 - 3.20 | [facility] | | | Lymphocytes | | K/uL | [facility] | | | | | | MEDICAL | | | | | | CENTER - | | | | | | LABORATORY | | + + + + + + | Absolute | 0.84 | 0.00 - 1.00 | [facility] | | | Monocytes | | K/uL | [facility] | | | | | | MEDICAL | | | | | | CENTER - | | | | | | LABORATORY | | + + + + + + | Absolute | 0.03 | 0.00 - 0.40 | [facility] | | | Eosinophils | | K/uL | [facility] | | | | | | MEDICAL | | | | | | CENTER - | | | | | | LABORATORY | | + + + + + + | Absolute | 0.05 | 0.00 - 0.10 | [facility] | | | Basophils | | K/uL | [facility] | | | | | | MEDICAL | | | | | | CENTER - | | | | | | LABORATORY | | + + + + + + | Absolute | 0.04 (H) | 0.00 - 0.03 | [facility] | | | Immature | | K/uL | [facility] | | | Granulocyte | | | MEDICAL | | | s | | | CENTER - | | | | | | LABORATORY | | + + + + + + | % nRBC | 0 | 0 - 2 per 100 | [facility] | | | | | WBCs | [facility] | | | | | | MEDICAL | | | | | | CENTER - | | | | | | LABORATORY | | + + + + + + | Absolute | 0.00 | 0.00 - 0.01 | [facility] | | | nRBC | | K/uL | [facility] | | | | | | MEDICAL | | | | | | CENTER - | | | | | | LABORATORY | | + + + + + + + + | Specimen | + + | Blood | + + + + + + + | Performing | Address | City/State/Zipcode | Phone Number | | Organization | | | | + + + + + | [facility] | [address] | [place] | [phone] | | [facility] | | [address] | | | - LABORATORY | | | | + + + + + documented in this encounter Visit Diagnoses + + | Diagnosis | + + | Endometrial cancer (HCC) - Primary Malignant neoplasm of corpus uteri, except isthmus | + + documented in this encounter Administered Medications + +--------+ +--------+------+------+ | Medication Order | MAR | Action | Dose | Rate | Site | | | Action | Date | | | | + +--------+ +--------+------+------+ | acetaminophen (TYLENOL) tablet | Given | 10/11/19 | 650 mg | | | | 650 mg 650 mg, Oral, ONCE, Fri | | 20 8:31 | | | | | 10/11/19 at 0815, For 1 dose | | AM PDT | | | | + +--------+ +--------+------+------+ +---+---+ | | | +---+---+ + +-------+ +--------+---+---+ | aprepitant (CINVANTI) injection | Given | 10/11/19 | 130 mg | | | | 130 mg 130 mg, IV Push, ONCE, | | 20 8:31 | | | | | 10/11/19 at 0815, For 1 dose, | | AM PDT | | | | | Administer 30 minutes prior to | | | | | | | chemotherapy. Administer slowly | | | | | | | over 2 minutes, | | | | | | + +-------+ +--------+---+---+ +---+---+ | | | +---+---+ + +---------+ + +-------+---+ | bevacizumab-awwb (MVASI) 1,000 | New Bag | 10/11/19 | 1,000 mg | 200 | | | mg in sodium chloride 0.9% 100 mL | | 20 9:08 | | mL/hr | | | infusion 1,000 mg (rounded from | | AM PDT | | | | | 1,020 mg = 15 mg/kg | | | | | | | 68 kg Order-specific weight), | | | | | | | Intravenous, Administer over 30 | | | | | | | Minutes, ONCE, 10/11/19 at | | | | | | | 0845, For 1 dose, | | | | | | | Bevacizumab-awwb can be safely | | | | | | | administered in adults at a rate | | | | | | | of 0.5 mg/kg/min. (5 mg/kg doses | | | | | | | over 10 min, 7.5 mg/kg doses over | | | | | | | 15 min, 10 mg/kg doses over 20 | | | | | | | min, 15 mg/kg doses over 30 | | | | | | | min.), | | | | | | + +---------+ + +-------+---+ +---+---+ | | | +---+---+ + +---------+ +--------+-------+---+ | CARBOplatin (PARAPLATIN) 400 mg | New Bag | 10/11/19 | 400 mg | 1080 | | | in sodium chloride 0.9% 500 mL | | 20 12:42 | | mL/hr | | | infusion (GOG) 400 mg (Target | | PM PDT | | | | | AUC = 5), Intravenous, Administer | | | | | | | over 30 Minutes, ONCE, Fri | | | | | | | 10/11/19 at 1200, For 1 dose, | | | | | | | Chemotherapy: Use appropriate | | | | | | | handling precautions. Administer | | | | | | | AFTER PACLitaxel., | | | | | | + +---------+ +--------+-------+---+ +---+---+ | | | +---+---+ + +-------+ +-------+---+---+ | diphenhydrAMINE (BENADRYL) | Given | 10/11/19 | 25 mg | | | | injection 25 mg 25 mg, | | 20 8:31 | | | | | Intravenous, ONCE, Mon10/11/19 at | | AM PDT | | | | | 0815, For 1 dose, Administer 30 | | | | | | | minutes prior to chemotherapy., | | | | | | + +-------+ +-------+---+---+ +---+---+ | | | +---+---+ + +-------+ +-------+---+---+ | famotidine (PEPCID) injection | Given | 10/11/19 | 20 mg | | | | 20 mg 20 mg, Intravenous, ONCE, | | 20 8:31 | | | | | Mon10/11/19 at 0815, For 1 dose, | | AM PDT | | | | | Keep in refrigerator. Administer | | | | | | | 30 minutes prior to chemotherapy. | | | | | | | Dilute 2 mL of famotidine with 8 | | | | | | | mL of normal saline to a final | | | | | | | concentration of 2 mg/mL. | | | | | | | Administer ordered dose over a | | | | | | | period of at least 2 minutes., | | | | | | + +-------+ +-------+---+---+ +---+---+ | | | +---+---+ + +---------+ +------+--------+---+ | ondansetron 8 mg, dexamethasone | New Bag | 10/11/19 | 8 mg | 217.6 | | | (DECADRON) 4 mg in sodium | | 20 8:49 | | mL/hr | | | chloride 0.9% 50 mL IVPB 8 mg, | | AM PDT | | | | | Intravenous, Administer over 15 | | | | | | | Minutes, ONCE, Mon10/11/19 at | | | | | | | 0815, For 1 dose | | | | | | + +---------+ +------+--------+---+ +---+---+ | | | +---+---+ + +---------+ +--------+--------+---+ | PACLitaxel (TAXOL) 318 mg in | New Bag | 10/11/19 | 318 mg | 166.7 | | | sodium chloride 0.9% 447 mL | | 20 9:43 | | mL/hr | | | infusion 318 mg (rounded from | | AM PDT | | | | | 316.75 mg = 175 mg/m2 | | | | | | | 1.81 m2 Order-specific BSA), | | | | | | | Intravenous, Administer over 3 | | | | | | | Hours, ONCE, 6/19/20 at 0900, | | | | | | | For 1 dose, Chemotherapy: Use | | | | | | | appropriate handling precautions. | | | | | | | Vesicant. Use 0.22 micron filter | | | | | | | and non-DEHP tubing for | | | | | | | administration. This drug has a | | | | | | | high incidence of infusion | | | | | | | reactions. Patient must be | | | | | | | directly and frequently observed | | | | | | | during drug administration., | | | | | | + +---------+ +--------+--------+---+ +---+---+ | | | +---+---+ documented in this encounter"
--- OUTSIDE RECORDS SUMMARY | ~2020-01-03 | XMS | Encounter Summary ---
Demographics + + + | Address | [address] | | | [place] [address] | + + + | Home Phone | | + + + | Preferred Language | Unknown | + + + | Marital Status | Single | + + + | Rastafarian Affiliation | NON | + + + | Race | White | + + + | Ethnic Group | Not or | + + + Author + + + | Author | [facility] | + + + | Organization | [facility] | + + + | Address | Unknown | + + + | Phone | Unavailable | + + + Support + + +---------+ + | Name | Relationship | Address | Phone | + + +---------+ + | Sheron Rivera | ECON | Unknown | | + + +---------+ + Care Team Providers + +------+ + | Care Golf Stud Riveter Name | Role | Phone | + +------+ + | Tom Sheppard MD | PCP | | + +------+ + Encounter Details +--------+ + + + + | Date | Type | Department | Care Team | Description | +--------+ + + + + | 02/12/ | MyChart | [facility] | Jennifer Hall, | referral | | 2018 | Encounter | [facility] | ,PhD 3401 | | | | | Oncology at [facility] | [facility] | | | | | [address] | [place], [place] | | | | | [address] | [address] | | | | | [place], [address] floor | [phone] | | | | | [place] [address] | | | | | | [phone] | | | +--------+ + + + [...] | 2019 | Visit | | MDPhD [address] | | | | | | [address] | | | | | | [place], [place] | | | | | | [address] | | | | | | [phone] | | | | | | | | +--------+---------+ + + + documented as of this encounter Visit Diagnoses Not on filedocumented in this encounter"
--- OUTSIDE RECORDS SUMMARY | ~2020-01-03 | XMS | Encounter Summary ---
Demographics + + + | Address | [address] | | | [place] [address] | + + + | Home Phone | | + + + | Preferred Language | Unknown | + + + | Marital Status | Single | + + + | Jain Affiliation | NON | + + + [...] Team Providers + +------+ + | Care Net C Developer Name | Role | Phone | + [...] | Encounter | [facility] | ,PhD 5064 | | | | | Oncology at [facility] | [facility] | | | | | [address] | [place], [place] | | | | | [address] | [address] | | | | | Anais, 5th floor | [phone] | | | | | [place] [address] | | | | | | [phone] | | | +--------+ + + + [...] | 2019 | Visit | | MDPhD [address] | | | | | | Lottie [facility]tz | | | | | | [place], [place] | | | | | | [address] | | | | | | [phone] | | | | | | | | +--------+---------+ + + + documented as of this encounter Visit Diagnoses Not on filedocumented in this encounter"
--- OUTSIDE RECORDS SUMMARY | ~2020-01-03 | XMS | Encounter Summary ---
Demographics + + + | Address | [address] | | | [place] [address] | + + + | Home Phone | | + + + | Preferred Language | Unknown | + + + | Marital Status | Single | + + + | Scientologist Affiliation | NON | + + + | Race | White | + + + | Ethnic Group | Not or | + + + Author + + + | Author | [facility] | + + + | Organization | [facility] | + + + | Address | Unknown | + + + | Phone | Unavailable | + + + Support + + +---------+ + | Name | Relationship | Address | Phone | + + +---------+ + | Sheron Rivera | ECON | Unknown | | + + +---------+ + Care Team Providers + +------+ + | Care Rec Therapist Name | Role | Phone | + +------+ + | Tom Sheppard MD | PCP | | + +------+ + Encounter Details +--------+ + + + + | Date | Type | Department | Care Team | Description | +--------+ + + + + | 04/10/ | Hospital | Dermatopathology | | | | 2016 | Encounter | [address] | | | | | | Mailcode: CH16D | | | | | | [facility] | | | | | | and Healing, | | | | | | [address] | | | | | | [place], [place] | | | | | | [address] | | | | | | [phone] | | | +--------+ + + + [...] + + +---------+ + + | amLODIPine 5 mg | Take 5 mg by mouth | | 3 | 11/02/19 | | | oral tablet | once daily. | | | 17 | | + + + +---------+ + + | CALCIUM | Take by mouth. | | 0 | | | | CARBONATE/VITAMIN D3 | | | | | | | (VITAMIN D-3 ORAL) | | | | | | + + + +---------+ + + | | Take by mouth. | | 0 | | | | FA/NIACINAMIDE/CUPRI | | | | | | | C OX/ZN OX | | | | | | | (NICOTINAMIDE ORAL) | | | | | | + + + +---------+ + + | Glucosamine | Take by mouth. | | 0 | | | | Sulfate (MALICK) 750 | | | | | | | mg oral tablet | | | | | | + + + +---------+ + + | | Take 12.5 mg by | | 1 | 09/27/19 | | | hydroCHLOROthiazide | mouth once daily. | | | 17 | | | 12.5 mg oral capsule | | | | | | + + + +---------+ + + | MULTIVITAMIN ORAL | Take by mouth. | | 0 | | | + + + +---------+ + + documented as of this encounter Plan of Treatment +--------+---------+ + + + | Date | Type | Specialty | Care Team | Description | +--------+---------+ + + + | 03/02/ | Office | Ophthalmology | Jennifer Hall, | | | 2020 | Visit | | MDPhD [address] | | | | | [address] | | | | | | [place], [place] | | | | | | [address] | | | | | | [phone] | | | | | | | | +--------+---------+ + + + documented as of this encounter Procedures + +--------+ + + + | Procedure Name | Priori | Date/Time | Associated Diagnosis | Comments | | | ty | | | | + +--------+ + + + | DERM PATHOLOGY | Routin | 04/10/2017 | Other specified | Results for this | | | e | | disorders of the | procedure are in the | | | | | skin and | results section. | | | | | subcutaneous tissue | | | | | | Carcinoma in situ | | | | | | of skin of right | | | | | | upper extremity | | | | | | including shoulder | | | | | | Carcinoma in situ of | | | | | | skin of left lower | | | | | | extremity including | | | | | | hip | | + +--------+ + + + documented in this encounter Results DERM PATHOLOGY (04/10/2017) + + + + + + | Component | Value | Ref Range | Performed | Pathologist | | | | | At | Signature | + + + + + + | DERMATOPATH | THIS IS AN ADDENDUM | | [facility] | | | OLOGY(WET | REPORT SOURCE OF | | DERMATOPATH | | | MNT) | SPECIMEN:A Rt calf , | | OLOGY | | | | shave biopsySOURCE OF | | | | | | SPECIMEN:B Rt upper arm, | | | | | | shave biopsySOURCE OF | | | | | | SPECIMEN:C Lt calf, | | | | | | shave biopsy | | | | | | CLINICAL DESCRIPTION:A: | | | | | | 14 x 12 mm pink papule; | | | | | | r/o NMSC.B: 4 x 6 mm | | | | | | pink papule; r/o NMSC.C: | | | | | | 10 x 11 mm pink papule; | | | | | | r/o NMSC. GROSS | | | | | | DESCRIPTION:Received in | | | | | | formalin are three | | | | | | specimens labeled | | | | | | Samina Boyd:A: | | | | | | Specimen is labeled "Rt | | | | | | calf" and consists of an | | | | | | irregular shave | | | | | | ofpapular patchy | | | | | | [id number] skin, | | | | | | [id number]. The surgical | | | | | | margin is inkedblue; the | | | | | | tissue is bisected, and | | | | | | entirely submitted in | | | | | | cassette A1.B: Specimen | | | | | | is labeled "Rt upper | | | | | | arm" and consists of an | | | | | | irregular shave | | | | | | ofpapular white-merritt | | | | | | skin, [id number]. The | | | | | | surgical margin is inked | | | | | | blue; thetissue is | | | | | | bisected, and entirely | | | | | | submitted in cassette | | | | | | B1.C: Specimen is | | | | | | labeled "Lt calf" and | | | | | | consists of an irregular | | | | | | shave ofpapular | | | | | | white-yellow skin, | | | | | | [id number]. The surgical | | | | | | margin is inked blue; | | | | | | thetissue is bisected, | | | | | | and entirely submitted | | | | | | in cassette C1. | | | | | | MICROSCOPIC | | | | | | DESCRIPTION:A: There is | | | | | | psoriasiform epidermal | | | | | | hyperplasia. The | | | | | | keratinocytes | | | | | | haverelatively uniform | | | | | | in size and shape | | | | | | nuclei. B: There | | | | | | is an asymmetric and | | | | | | poorly circumscribed | | | | | | neoplasm characterizedby | | | | | | parakeratosis overlying | | | | | | atypical keratinocytes | | | | | | at all levels of | | | | | | theepidermis. Most of | | | | | | the cells have | | | | | | pleomorphic, | | | | | | hyperchromatic nuclei, | | | | | | someare in mitosis, and | | | | | | most have eosinophilic | | | | | | cytoplasm. C: | | | | | | There is an asymmetric | | | | | | and poorly circumscribed | | | | | | neoplasm | | | | | | characterizedby | | | | | | parakeratosis overlying | | | | | | atypical keratinocytes | | | | | | at all levels of | | | | | | theepidermis. Most of | | | | | | the cells have | | | | | | pleomorphic, | | | | | | hyperchromatic nuclei, | | | | | | someare in mitosis, and | | | | | | most have eosinophilic | | | | | | cytoplasm. 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 Nodefinitive | | | | | | squamous cell carcinoma | | | | | | is seen. Deeper sections | | | | | | will beobtained and the | | | | | | results will be | | | | | | reported as an addendum. | | | | | | B: SQUAMOUS CELL | | | | | | CARCINOMA IN SITU.(RIGHT | | | | | | UPPER ARM) NOTE: | | | | | | The right upper arm | | | | | | SQUAMOUS CELL CARCINOMA | | | | | | IN SITU extends to | | | | | | thesurgical margins of | | | | | | the shave specimen and | | | | | | additional treatment to | | | | | | assurecomplete removal | | | | | | would be prudent. | | | | | | C: SQUAMOUS CELL | | | | | | CARCINOMA IN SITU WITH | | | | | | LICHENOID | | | | | | INFLAMMATION.(LEFT CALF) | | | | | | NOTE: The left | | | | | | calf SQUAMOUS CELL | | | | | | CARCINOMA IN SITU | | | | | | extends to the | | | | | | surgicalmargins of the | | | | | | shave specimen and | | | | | | additional treatment to | | | | | | assure completeremoval | | | | | | would be prudent. | | | | | | ADDENDUM:A (Right calf): | | | | | | Deeper sections are | | | | | | obtained and show | | | | | | findings, similar tothe | | | | | | initial sections. No | | | | | | squamous cell carcinoma | | | | | | or basal cell carcinoma | | | | | | isseen. The above | | | | | | diagnosis will remain | | | | | | unchanged. My | | | | | | electronic signature | | | | | | indicates that I have | | | | | | personally reviewed | | | | | | alldiagnostic slides, | | | | | | the gross and/or | | | | | | microscopic portion of | | | | | | thisreport and | | | | | | formulated the final | | | | | | diagnosis. | | | | | | Electronically signed | | | | | | by: Xavier Cotter | | | | | | Jonas | | | | | | Completed: 04/18/2017 | | | | | | 2:18PM | | | | + + + + + + + + | Specimen | + + | | + + + + + | Narrative | Performed At | + + + | | | + + + + + + + + | Performing | Address | City/State/Zipcode | Phone Number | | Organization | | | | + + + + + | [facility] | Mailcode CH5D [address] | [place] [address] | | | DERMATOPATHOLOGY | [address] | | | + + + + + | [facility] | Mailcode CH5D [address] | [place] [address] | | | DERMATOPATHOLOGY | [address] | | | + + + + + documented in this encounter Visit Diagnoses + + | Diagnosis | + + | Other specified disorders of the skin and subcutaneous tissue | + + | 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
--- OUTSIDE RECORDS SUMMARY | ~2020-01-03 | XMS | Encounter Summary ---
Demographics + + + | Address | [address] | | | [place] [address] | + + + | Home Phone | | + + + | Preferred Language | Unknown | + + + | Marital Status | Single | + + + | Adventism Affiliation | NON | + + + | Race | White | + + + | Ethnic Group | Not or | + + + Author + + + | Author | [facility] | + + + | Organization | [facility] | + + + | Address | Unknown | + + + | Phone | Unavailable | + + + Support + + +---------+ + | Name | Relationship | Address | Phone | + + +---------+ + | Sheron Rivera | ECON | Unknown | | + + +---------+ + Care Team Providers + +------+ + | Care Loader Operator Supervisor Name | Role | Phone | + +------+ + PCP | Unavailable | + +------+ + Encounter Details +--------+ + + + + | Date | Type | Department | Care Team | Description | +--------+ + + + + | 06/14/ | Hospital | Dermatopathology | | | | 2017 | Encounter | [address] | | | | | | Mailcode: CH16D | | | | | | [facility] | | | | | | and Healing, | | | | | | [facility] [address], [facility] | | | | | | [place], [place] | | | | | | [address] | | | | | | [phone] | | | +--------+ + + + + Social History + +-------+ +--------+------+ | Tobacco Use | Types | Packs/Day | Years | Date | | | | | Used | | + +-------+ +--------+------+ | Never Assessed | | | | | + +-------+ +--------+------+ + + + | Sex Assigned at [...] | 2019 | Visit | | MDPhD [address] | | | | | | [address] | | | | | | [place], [place] | | | | | | [address] | | | | | | [phone] | | | | | | | | +--------+---------+ + + + documented as of this encounter Procedures + +--------+ + + + | Procedure Name | Priori | Date/Time | Associated Diagnosis | Comments | | | ty | | | | + +--------+ + + + | DERM PATHOLOGY | Routin | 06/14/2016 | Squamous cell | Results for this | | | e | | carcinoma of skin of | procedure are in the | | | | | left lower limb, | results section. | | | | | including hip | | + +--------+ + + + documented in this encounter Results DERM PATHOLOGY (06/14/2016) + + + + + + | Component | Value | Ref Range | Performed | Pathologist | | | | | At | Signature | + + + + + + | DERMATOPATH | SOURCE OF SPECIMEN:A Lt. | | [facility] | | | OLOGY(WET | lateral calf, shave | | DERMATOPATH | | | MNT) | biopsy ED&C | | OLOGY | | | | CLINICAL DESCRIPTION:15 | | | | | | x 16 pink nodule; r/o | | | | | | SCC. GROSS | | | | | | DESCRIPTION:Received in | | | | | | formalin is a specimen | | | | | | labeled Scharn, | | | | | | Samina:A: Specimen is | | | | | | labeled "L lateral calf" | | | | | | and consists of an | | | | | | irregular shaveof scaly | | | | | | papular [id number] | | | | | | skin, [id number]. The | | | | | | surgical margin isinked | | | | | | black; the tissue is | | | | | | quadrisected, and | | | | | | entirely submitted in | | | | | | cassetteA1. | | | | | | MICROSCOPIC | | | | | | DESCRIPTION:There is an | | | | | | asymmetric, poorly | | | | | | circumscribed neoplasm | | | | | | characterized | | | | | | byirregularly sized | | | | | | aggregates of atypical | | | | | | epithelial cells within | | | | | | thedermis. The | | | | | | epithelial cell nuclei | | | | | | are pleomorphic and | | | | | | hyperchromatic andmost | | | | | | of the cells have | | | | | | eosinophilic cytoplasm. | | | | | | DIAGNOSIS:SQUAMOUS | | | | | | CELL CARCINOMA. | | | | | | My electronic signature | | | | | [...] diagnosis. 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
--- OUTSIDE RECORDS SUMMARY | ~2020-01-03 | XMS | Encounter Summary ---
Demographics + + + | Address | [address] | | | [place] [address] | + + + | Home Phone | | + + + | Preferred Language | Unknown | + + + | Marital Status | Single | + + + | Rastafari Affiliation | NON | + + + [...] Team Providers + +------+ + | Care Supervisor Byproducts Name | Role | Phone | + +------+ + | Tom Sheppard MD | PCP | | + +------+ + Reason for Visit + + + | Reason | Comments | + + + | OCT - Macula | OD | + + + | Fundus photography | OD | + + + | Autofluorescence | OD | + + + Encounter Details +--------+ + + + + | Date | Type | Department | Care Team | Description | +--------+ + + + + | 11/09/ | Diagnostic | [facility] | | OCT - Macula (OD); | | 2017 | Visit | [place] | | Fundus photography | | | | [facility] at | | (OD); | | | [facility] [address] | | Autofluorescence | | | | [address] | | (OD) | | | | Eye [place] | | | | | | floor [place], [place] | | | | | | [address] | | | +--------+ + + + [...] + documented as of this encounter Progress Mariam Be - 11/09/2016 3:00 PM PDTThe interpretation for the following study: OCT - Macula - OD Fundus photography - OD Autofluorescence - OD can be found on physician encounter on 11/09/2016. documented in this encounter Plan of Treatment +--------+---------+ + + + | Date | Type | Specialty | Care Team | Description | +--------+---------+ + + + | 03/02/ | Office | Ophthalmology | Jennifer Hall, | | | 2019 | Visit | | ,PhD [address] | | | | | [address] | | | | | | [place], [place] | | | | | | [address] | | | | | | [phone] | | | | | | | | +--------+---------+ + + + documented as of this encounter Visit Diagnoses + + | Diagnosis | + + | Neoplasm of uncertain behavior of other specified sites | + + documented in this encounter"
--- OUTSIDE RECORDS SUMMARY | ~2020-01-03 | XMS | Encounter Summary ---
Demographics + + + | Address | [address] | | | [place] [address] | + + + | Home Phone | | + + + | Preferred Language | Unknown | + + + | Marital Status | Single | + + + | Mormon Affiliation | NON | + + + | Race | White | + + + | Ethnic Group | Not or | + + + Author + + + | Author | [facility] | + + + | Organization | [facility] | + + + | Address | Unknown | + + + | Phone | Unavailable | + + + Support + + +---------+ + | Name | Relationship | Address | Phone | + + +---------+ + | Sheron Rivera | ECON | Unknown | | + + +---------+ + Care Team Providers + +------+ + | Care Custom Clothier Name | Role | Phone | + +------+ + | Tom Sheppard MD | PCP | | + +------+ + Encounter Details +--------+ + + + + | Date | Type | Department | Care Team | Description | +--------+ + + + + | 11/22/ | Document-Sc | Health Information | Unknown . | | | 2017 | anned | Services [address] | | | | | | [address] | | | | | | Mailcode: OP17A | | | | | | [facility] | | | | | | [place], [place] | | | | | | [address] | | | | | | [phone] | | | +--------+ + + + [...] | 2019 | Visit | | MDPhD [address] | | | | | | [address] | | | | | | [place], [place] | | | | | | [address] | | | | | | [phone] | | | | | | | | +--------+---------+ + + + documented as of this encounter Visit Diagnoses Not on filedocumented in this encounter"
--- OUTSIDE RECORDS SUMMARY | ~2020-01-03 | XMS | Encounter Summary ---
Demographics + + + | Address | [address] | | | [place] [address] | + + + | Home Phone | | + + + | Preferred Language | Unknown | + + + | Marital Status | Single | + + + | Orthodoxy Affiliation | NON | + + + | Race | White | + + + | Ethnic Group | Not or | + + + Author + + + | Author | [facility] | + + + | Organization | [facility] | + + + | Address | Unknown | + + + | Phone | Unavailable | + + + Support + + +---------+ + | Name | Relationship | Address | Phone | + + +---------+ + | Sheron Rivera | ECON | Unknown | | + + +---------+ + Care Team Providers + +------+ + | Care Hall Worker Name | Role | Phone | + +------+ + | Tom Sheppard MD | PCP | | + +------+ + Reason for Visit + + + | Reason | Comments | + + + | RT Treatment Summary | | + + + Encounter Details +--------+ + + + + | Date | Type | Department | Care Team | Description | +--------+ + + + + | 12/21/ | Documentati | Radiation Oncology | Gilma Soliman, | RT Treatment Summary | | 2017 | on | at [facility] [address] | MD [address] [facility] | | | | | [address] | [facility] | | | | | [address], [facility] floor | [place], [place] | | | | | [place], [place] | [address] | | | | | | [phone] | | | | | [phone] | | | +--------+ + + + [...] this encounter Miscellaneous Notes Telephone Encounter - Gilma Soliman - 12/21/2016 3:16 PM PDTRADIATION ONCOLOGY TREATME NT SUMMARY IDENTIFICATION: 71 y.o. 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 She was treated with I-125 plaque brachytherapy using a non-notched 18mm plaque prescribed to 85Gy from 12/12/16-12/16/16. TREATMENT TYPE: I-125 plaque brachytherapy Prescription Point Dose: 85 Gy Prescription Point Depth: 5 mm inside sclera Plaque Diameter: 19 mm Start Time: 12/12/16 9:30am End Time: 1:21pm Total Hours: 99.85 hrs Number of Seeds: 21 Average Activity per Seed: 2.16 mCi Total Activity: 45.37 mCi Please contact our department for specific normal structure doses. COMMENTS: The patient tolerated the treatment well with no complications and will follow u p with Dr. Hall. Gilma SOLIMAN Dept of Radiation Medicine [facility] documented in this enco unter Plan of Treatment +--------+---------+ + + + | Date | Type | Specialty | Care Team | Description | +--------+---------+ + + + | 03/02/ | Office | Ophthalmology | Jennifer Hall, | | | 2019 | Visit | | ,PhD [address] | | | | | [address] | | | | | | [place], [place] | | | | | | [address] | | | | | | [phone] | | | | | | | | +--------+---------+ + + + documented as of this encounter Visit Diagnoses Not on filedocumented in this encounter"
--- OUTSIDE RECORDS SUMMARY | ~2020-01-03 | XMS | Encounter Summary ---
Demographics + + + | Address | [address] | | | [place] [address] | + + + | Home Phone | | + + + | Preferred Language | Unknown | + + + | Marital Status | Single | + + + | Hinduism Affiliation | NON | + + + [...] Team Providers + +------+ + | Care Bus System Operator Name | Role | Phone | + +------+ + | Tom Sheppard MD | PCP | | + +------+ + Reason for Visit + + + | Reason | Comments | + + + | Brachytherapy | | | Procedure | | + + + Encounter Details +--------+ + + + + | Date | Type | Department | Care Team | Description | +--------+ + + + + | 12/13/ | Documentati | Radiation Oncology | Hank Murphy, | Brachytherapy | | 2017 | on | at [facility] [address] | [address] | Procedure | | | | [address] | [facility] | | | | | [address], [address] floor | [place], [place] | | | | | [place], [place] | [address] | | | | | | [phone] | | | | | [phone] | | | +--------+ + + + [...] this encounter Miscellaneous Notes Telephone Encounter - Hank Murphy MD - 12/13/2016 9:14 AM PDTRADIATION [facility] NOTE UVEAL MELANOMA I-125 PLAQUE TREATMENT Date: December 12, 2016 Patient info: Samina Boyd(MR# [id number]) Preoperative Diagnosis: Right ocular melanoma Postoperative Diagnosis: Same Surgeon: Dr. Jennifer Hall and team Tire Builder Operator: Jamaal Harding, PhD Radiation Oncologist: Dr. RAMON Murphy Jr. (present in [place]); Dr. KAREN Henley (performed consult an d treatment planning). [place] Note: At 9:30am today, following appropriate anesthesia and isolation of the rectus mu scles with suture slings, Dr. Jennifer Hall &her associates placed an notched COMS 18-type (19.00mm nominal diameter) gold plaque onto the scleral surface of Ms. Scharn's right eye . My team verified the size and shape of the plaque and the position of the sources. Once th e plaque was placed and stitched into position, We verified its position by seeing the relat ionship of the plaque to the tumor as seen on ultrasound. The gold plaque contains 21(twenty-one) I-125 seeds with an activity of 2.214mCi/seed. The total activity of 46.50mCi within 21total seeds. Tumor dimensions: [place] (thickness)= 3.00 mm, Radial (longest dimension)= 11.26mm, Circumf erence= 9.43mm, Surface area= 86mm2, % Retinal surface = 5.4% A pre-planned dose rate to the prescription point which was 5.0 mm from the plaque surface, over approximately 100 hours for a cumulative dose of approximately 86 Gy (8600 cGy). The gold plaque should be removed on Monday, December 16, 2016 All of the relevant information for the above note will be found in the physics treatment p halina forms. Estimated Blood Loss: 1-3cc Complications: None Room Survey: Clear and documented by physicist, Dr. Harding. Follow-up: The pt was taken out of the OR and transported to the [facility] room without incident. The pt was given the Radiation Safety Instruction form by Dr. Harding . Hank Murphy Jr., MD Attending Physician [facility] Radiation Medicine Service 12/12/2016 documente d in this encounter Plan of Treatment +--------+---------+ + + + | Date | Type | Specialty | Care Team | Description | +--------+---------+ + + + | 03/02/ | Office | Ophthalmology | Jennifer Hall, | | | 2019 | Visit | | ,PhD [address] | | | | | [address] | | | | | | [place], [place] | | | | | | [address] | | | | | | [phone] | | | | | | | | +--------+---------+ + + + documented as of this encounter Visit Diagnoses Not on filedocumented in this encounter"
--- OUTSIDE RECORDS SUMMARY | ~2020-01-03 | XMS | Encounter Summary ---
Demographics + + + | Address | [address] | | | [place] [address] | + + + | Home Phone | | + + + | Preferred Language | Unknown | + + + | Marital Status | Single | + + + | Scientology Affiliation | NON | + + + | Race | White | + + + | Ethnic Group | Not or | + + + Author + + + | Author | [facility] | + + + | Organization | [facility] | + + + | Address | Unknown | + + + | Phone | Unavailable | + + + Support + + +---------+ + | Name | Relationship | Address | Phone | + + +---------+ + | Sheron Rivera | ECON | Unknown | | + + +---------+ + Care Team Providers + +------+ + | [employer] Dress Belt Maker Name | Role | Phone | + +------+ + | Tom Sheppard MD | PCP | | + +------+ + Reason for Visit + + + | Reason | Comments | + + + | New Patient Visit | | + + + Benefits Check (Routine) +--------+--------+ + + + + | Status | Reason | Specialty | Diagnoses / | Referred By | Referred To | | | | | Procedures | Contact | Contact | +--------+--------+ + + + + | Closed | | Ophthalmology | | Bryce, | [place], | | | | | | Hay Hatch MD | Jennifer Stephenson, | | | | | | [address] | ,PhD [address] | | | | | | [address] | | | | | | | [address] | [address] | | | | | | [address] [address] | | | | | | Phone: | [place], [place] | | | | | | [phone] | [address] | | | | | | Fax: | Phone: | | | | | | [phone] | [phone] | | | | | | | Fax: | | | | | | | [phone] | +--------+--------+ + + + + Encounter Details +--------+---------+ + + + | Date | Type | Department | Care Team | Description | +--------+---------+ + + + | 11/09/ | Office | [facility] | Jennifer Hall, | 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 New Patient Evaluation 11/09/2016 CC: New Patient Visit HPI: Samina Boyd is a 71 y.o. female referred by Dr. Hay Wu MD for evaluation a nd treatment of a subretinal mass, right eye. Accompanied today by sister, Sheron. HPI and review of records: Referred for evaluation of a subretinal lesion in the right e ye. Patient was noted to have a lesion when she presented complaining of blurred vision in t he right eye x 3 months. Notes flashes OD x approximately 3 weeks now. Review of systems: I reviewed the patient questionnaire review of systems as well as the te chnician ocular ROS and agree with the documentation. Eye Meds: none POH: Subretinal mass, right eye Ocular ROS: Loss of vision both Eye Pain n Loss of peripheral vision n Seeing a curtain or veil n Light flashes Right? Night Blindness n Floaters n Double vision n Distorted vision n Headache n Visual blackouts n Migraines n PMH: PCP: Tom Sheppard MD Allergies Allergen Reactions Clams Unknown Oyster Extract Unknown Past Medical History: Diagnosis Date Arthritis Cataract HTN (hypertension) Hypercholesterolemia Current Outpatient Prescriptions Medication amLODIPine 5 mg oral tablet CALCIUM CARBONATE/VITAMIN D3 (VITAMIN D-3 ORAL) FA/NIACINAMIDE/CUPRIC OX/ZN OX (NICOTINAMIDE ORAL) Glucosamine Sulfate (MALICK) 750 mg oral tablet hydroCHLOROthiazide 12.5 mg oral capsule MULTIVITAMIN ORAL No current facility-administered medications for this visit. FH: No known family history of AMD, cataract, glaucoma, retinal detachment or blindness fr om unknown causes Social Hx: The patient is from [place], [place] [[id number]]. Drives: yes. 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 History Smoking Status Never Smoker Smokeless Tobacco Never Used Examination: 11/09/2016 [facility] PH IOP 9:06 AM Right Eye 20/40+2 NI 16 Left Eye 20/25-2 NI 15 Pupils reactive, No RAPD EOM Full, Orthophoric CVF Full to CF OS but decreased superior nasal OD A&O x 4 Tech Comments: Both eyes dilated with Mydriacyl and Neosynephrine OU Initial hx, allergies, meds, Va, IOP and above exam elements reviewed / performed by Destini VITAL OD OS External Normal Normal Lids Normal Normal Conj White and quiet White and quiet Cornea All layers clear All layers clear AC Deep and quiet Deep and quiet Iris Normal Normal Lens 1-2+ NSC 1+ NSC Gonio Comments: DFE OD OS Vit:Normal D: Normal 0.3 M:Moderately elevated variably pigmented choroidal mass in the temporal macula with overlyi ng SRF and mild lipofuscin Vessels: Normal P:Normal Vit:PVD D: Normal 0.4 M:Normal Vessels: Normal P:Normal Diagnostic Studies: Color Fundus Photography: Pigmented choroidal lesion in the right eye documented to allow f or future comparison. 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 Subtle spontaneous motion was observed during dynamic examination. A-scan reveals low internal reflectivity. 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 We discussed the nature of uveal melanoma, the risk of metastatic disease, and the treatm ent options of radiation, including proton beam and plaque brachytherapy, and enucleation. Yaima thomas risk for late distant metastasis despite satisfactory primary treatment and a negative in itial metastatic evaluation was discussed. The patient is aware of the likelihood of vision loss in the affected eye related to either form of radiation treatment. Additional surgical risks including continued tumor growth, bl eeding, infection, retinal detachment, cataract, eyelid changes, double vision, dry eye, vis ion loss, and the need for additional surgery were also discussed. All questions were answe red in detail. After our discussion, Ms. Boyd has elected to undergo I-125 plaque brachytherapy and Alisa alex arranged consultation with radiation oncology. She should also have a metastatic work-up to evaluate for liver or lung involvement prior to treating her eye. I will plan to treat t he lesion with a non-notched COMS style plaque (18 mm). The larger plaque size is chosen due to the posterior location of this lesion. We also discussed the option of performing a fine needle aspirate of the tumor at the time of treatment to obtain cytology and a gene expression profile. This information is useful in judging the prognosis for survival, and may also be useful in considering adjunctive treatm ents should they become available. We discussed that not all tumors are amenable to the proc edure and that the biopsies do not always yield diagnostic results. The patient will conside r this option. Trans-retinal biopsy would be the preferred method in this case. All questions were answered and informational materials regarding uveal melanoma, plaque br achytherapy, and gene expression profile testing were provided to the patient. Our office wi ll assist in coordinating the necessary pre-operative evaluations. I reviewed all components above, made necessary revisions and performed critical portions o f the history and examination. Jennifer Hall MD PhD Safety Clothing And Equipment Developer, Department of Ophthalmology [facility] [phone] documented in th is encounter Plan of Treatment +--------+---------+ + + + | Date | Type | Specialty | Care Team | Description | +--------+---------+ + + + | 03/02/ | Office | Ophthalmology | Jennifer Hall, | | | 2019 | Visit | | ,PhD [address] | | | | | | [address] | | | | | | [place], [place] | | | | | | [address] | | | | | | [phone] | | | | | | | | +--------+---------+ + + + + + +--------+ + + | Name | Type | Priori | Associated Diagnoses | Order Schedule | | | | ty | | | + + +--------+ + + | COLOR PHOTOGRAPHY | Procedures | Routin | Choroid melanoma | Expected: | | | | e | of right eye ([facility]) | 11/08/2016, Expires: | | | | | | 05/11/2018 | + + +--------+ + + | FUNDUS PHOTO | Procedures | Routin | Choroid melanoma | Expected: | | AUTOFLUORESCENCE | | e | of right eye ([facility]) | 11/08/2016, Expires: | | | | | | 05/11/2018 | + + +--------+ + + | CMPTR OPHTH DX IMG | Procedures | Routin | Choroid melanoma | Expected: | | POST SEGMT | | e | of right eye ([facility]) | 11/08/2016, Expires: | | | | | | 05/11/2018 | + + +--------+ + + | ULTRASOUND, B SCAN | Procedures | Routin | Choroid melanoma | Expected: | | QUANTITATIVE A | | e | of right eye ([facility]) | 11/08/2016, Expires: | | | | | | 05/11/2018 | + + +--------+ + + documented as of this encounter Procedures + +--------+ + + + | Procedure Name | Priori | Date/Time | Associated Diagnosis | Comments | | | ty | | | | + +--------+ + + + | [facility] | Routin | 11/08/2016 | Choroid melanoma | | | PHOTOGRAPHY | e | 7:50 PM | of right eye (HCC) | | | | | PDT | | | + +--------+ + + + | [facility] | Routin | 11/08/2016 | Choroid melanoma | | | PHOTOGRAPHY | e | 7:50 PM | of right eye (HCC) | | | | | PDT | | | + +--------+ + + + documented in this encounter Visit Diagnoses + + | Diagnosis | + + | 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
--- OUTSIDE RECORDS SUMMARY | ~2020-01-03 | XMS | Encounter Summary ---
Demographics + + + | Address | [address] | | | [place] [address] | + + + | Home Phone | | + + + | Preferred Language | Unknown | + + + | Marital Status | Single | + + + | Christian Affiliation | NON | + + + | Race | White | + + + | Ethnic Group | Not or | + + + Author + + + | Author | [facility] | + + + | Organization | [facility] | + + + | Address | Unknown | + + + | Phone | Unavailable | + + + Support + + +---------+ + | Name | Relationship | Address | Phone | + + +---------+ + | Sheron Rivera | ECON | Unknown | | + + +---------+ + Care Team Providers + +------+ + | Care Farm Operator Name | Role | Phone | + +------+ + | Tom Sheppard MD | PCP | | + +------+ + Reason for Visit AUTH/CERT +--------+--------+ + + + + | Status | Reason | Specialty | Diagnoses / | Referred By | Referred To | | | | | Procedures | Contact | Contact | +--------+--------+ + + + + | | | | | | | +--------+--------+ + + + + Encounter Details +--------+---------+ + + + | Date | Type | Department | Care Team | Description | +--------+---------+ + + + | 12/12/ | Surgery | [facility] | Jennifer Hall, | I-125 PLAQUE | | 2017 | | [address] | ,PhD [address] | INSERTION RIGHT | | | | [facility] | [address] | *IMAGING NEEDED: | | | | [place] [address] | [place], [place] | ULTRASOUND* | | | | | [address] | | | | | | [phone] | | | | | | | [...] + + + | Blood Pressure | 147/65 | 12/12/2016 11:00 AM | | | | | PDT | | + + + + + | Pulse | 63 | 12/12/2016 11:00 AM | | | | | PDT | | + + + + + | Temperature | 36.7 C (98.1 F) | 12/12/2016 11:00 AM | | | | | PDT | | + + + + + | Respiratory Rate | 12 | 12/12/2016 11:00 AM | | | | | PDT | | + + + + + | Oxygen Saturation | 99% | 12/12/2016 11:00 AM | | | | | PDT | [...] + + + documented in this encounter Discharge Instructions Instructions Melida Jimenez RN - 12/12/2016Home care after I-125 Plaque insertion and rem oval instructions You may experience some fatigue for a few weeks following surgery. You may find it helpful to plan rest periods throughout the day. You may resume your normal diet and prescribed med ications after discharge unless otherwise directed by your doctor. Please take the prescribed pain medications if you are experiencing eye pain. If you are e xperiencing nausea please take the anti-nausea medication prescribed. If your eye pain and nausea are uncontrolled, please call your eye doctor. Care of the operated Eye: ? The eye should remain patched and shielded until your post-op visit the day after surgery to place the plaque ? Apply the ointment to the operated eye as directed after your post-op visit. Reapply the lead shield to the operated eye when the I-125 radioactive plaque is still in your eye ? After the I-125 radioactive plaque is removed, wear the eye dressing until the next day. Remove that eye dressing when you wake up. Apply the eye ointment to that operated eye as prescribed ? After the I-125 radioactive plaque is removed, wear the eye shield over that eye for 2-4 weeks whenever you sleep, until the eye is no longer itchy. ? Avoid rubbing your eye ? Do not allow anything to go into that operated eye other than the prescribed eye medicati on ? Please avoid any cosmetics around that operated eye ? No heavy lifting, bending over, straining for 2 weeks after the plaque removal surgery To help prevent infection: ? Always wash your hands before caring for your eyes or using eye medicine ? Do not touch any part of your eye or skin with the tip of the eye medicine bottle or tube Skin care around the Eye: ? No showering for 2 days after each surgery ? If necessary, you may wash the eye lids with mild soap and lukewarm water and gently pat dry ? Avoid extreme temperatures (warmth, cold) to the operated eye. ? Avoid any friction or eyelid rubbing or scratching. If serious problems arise do not wait for your next appointment. Call your doctor if you james ve any of the following: ? Temperature above 101 degrees (fever) ? Purulent drainage (which is drainage that is whitish-merritt or greenish in color) from the s urgical site ? If there is increased redness at the edges of the surgical site ? Increased pain, even with pain medication ? Uncontrolled nausea Jennifer Hall M.D., Ph.D [phone] or [phone] Arvind Gauthier M.D. [phone] or [phone] Return appointment Date: Time: documented in this encounter Medications at Time [...] + + documented as of this encounter H&P Notes Colin Forrester MD - 12/12/2016 8:24 AM PDTI have examined the patient and reviewed th e History and Physical and have confirmed that it is accurate and current. Colin Forrester MD documented in this encounter Procedure Notes Jennifer Hall MD,PhD - 12/12/2016 9:54 AM PDTAssociated Order(s): PROCEDURE NOTEProced ure Date: 12/12/2016 Pre-operative Diagnosis: Choroidal melanoma, right eye Post-operative Diagnosis: Same as pre-operative diagnosis Procedure: Insertion of radioactive plaque, right eye Surgeon: Jennifer Hall MD Dispatch Machine Runner: Colin Forrester MD Anesthesia: General Implant: I-125 Radioactive Plaque EBL: < 5mL Specimens: None Complications: None Drain: None Indication for Surgery: Samina Boyd is a 71 y.o. 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 After a discussion of the procedure, risks, benefits, and alternati ves she elected to proceed with placement of radioactive eye plaque. She declined a fine nee dle biopsy of the tumor. She now undergoes surgery. Surgical Narrative: The patient was brought into the operating theatre and was placed in supine position. Gener al anesthesia was induced without complications. The area around the right eye was then prep ped and draped in usual sterile manner for ophthalmic surgery. A lid speculum was placed and the operating microscope was brought over the eye. A subTenon's block consisting of a 50:5 0 mix of 2% xylocaine and 0.75% bupivacaine was performed using a blunt cannula after conjun ctiva and tenon's was incised. A conjunctival peritomy was performed from approximately 5 o' clock to 1 o'clock. The Tenon's capsule was dissected using the Wolfgang's scissors. The infer ior and superior rectus muscles were isolated and looped with 2-0 silk sutures. The lateral rectus muscle was removed after 7-0 vicryl had been secured to the anterior aspect of the mu scle. A 5-0 nylon suture was placed through the insertion site to assist in manipulating the globe for the plaque placement.The tumor was identified with indirect ophthalmoscopy and it s location was marked with a surgical marking pen. Following this, an I-125 plaque was posit ioned to cover the tumor and sutured into place with 5-0 nylon sutures. Appropriate position ing was confirmed with B-scan ultrasound. The 2-0 silk sutures were removed. The lateral rec tus was reattached to its site of insertion using the pre-placed suture. The conjunctiva was closed with 7-0 vicryl. Maxitrol ointment, a gauze patch, and a lead shield were placed ove r the eye. The patient was moved to the recovery area in satisfactory condition. Jennifer Hall MD documented in this encounter Plan of Treatment +--------+---------+ + + + | Date | Type | Specialty | Care Team | Description | +--------+---------+ + + + | 03/02/ | Office | Ophthalmology | Jennifer Hall, | | | 2019 | Visit | | ,PhD [address] | | | | [address] | | | | | | [place], [place] | | | | | | [address] | | | | | | [phone] | | | | | | | | +--------+---------+ + + + documented as of this encounter Procedures + +--------+ + + + | Procedure Name | Priori | Date/Time | Associated Diagnosis | Comments | | | ty | | | | + +--------+ + + + | PROCEDURE NOTE | Routin | 12/12/2016 | | Results for this | | | e | 1:19 PM | | procedure are in the | | | | PDT | | results section. | + +--------+ + + + | I-125 PLAQUE | Electi | 12/12/2016 | Choroid melanoma | | | INSERTION IMAGING | ve | 8:28 AM | of right eye (HCC) | | | NEEDED: ULTRASOUND | Surgic | PDT | | | | | al | | | | + +--------+ + + + | CARDIOLOGY | | 12/12/2016 | | Results for this | | | | 12:00 AM | | procedure are in the | | | | PDT | | results section. | + +--------+ + + + documented in this encounter Results PROCEDURE NOTE (12/12/2016 1:19 PM PDT) + + + | Narrative | Performed At | + + + | Jennifer Hall MD,PhD 12/12/2016 1:19 PM Procedure Date: | | | 12/12/2016 Pre-operative Diagnosis: Choroidal melanoma, right eye | | | Post-operative Diagnosis: Same as pre-operative diagnosis Procedure: | | | Insertion of radioactive plaque, right eye Surgeon: Jennifer | | | Sachin Hall MD Dispatch Machine Runner: Colin Forrester MD Anesthesia: General | | | Implant: I-125 Radioactive Plaque EBL: < 5mL Specimens: None | | | Complications: None Drain: None Indication for Surgery: Samina | | | Eloise Boyd is a 71 y.o. female with a right eye choroidal | | | melanoma located just temporal to the macula. After a discussion of | | | the procedure, risks, benefits, and alternatives she elected to | | | proceed with placement of radioactive eye plaque. She declined a | | | fine needle biopsy of the tumor. She now undergoes surgery. | | | Surgical Narrative: The patient was brought into the operating | | | theatre and was placed in supine position. General anesthesia was | | | induced without complications. The area around the right eye was | | | then prepped and draped in usual sterile manner for ophthalmic | | | surgery. A lid speculum was placed and the operating microscope was | | | brought over the eye. A subTenon's block consisting of a 50:50 mix | | | of 2% xylocaine and 0.75% bupivacaine was performed using a blunt | | | cannula after conjunctiva and tenon's was incised. A conjunctival | | | peritomy was performed from approximately 5 o'clock to 1 o'clock. | | | The Tenon's capsule was dissected using the Wolfgang's scissors. The | | | inferior and superior rectus muscles were isolated and looped with | | | 2-0 silk sutures. The lateral rectus muscle was removed after 7-0 | | | vicryl had been secured to the anterior aspect of the muscle. A 5-0 | | | nylon suture was placed through the insertion site to assist in | | | manipulating the globe for the plaque placement.The tumor was | | | identified with indirect ophthalmoscopy and its location was marked | | | with a surgical marking pen. Following this, an I-125 plaque was | | | positioned to cover the tumor and sutured into place with 5-0 nylon | | | sutures. Appropriate positioning was confirmed with B-scan | | | ultrasound. The 2-0 silk sutures were removed. The lateral rectus | | | was reattached to its site of insertion using the pre-placed suture. | | | The conjunctiva was closed with 7-0 vicryl. Maxitrol ointment, a | | | gauze patch, and a lead shield were placed over the eye. The | | | patient was moved to the recovery area in satisfactory condition. 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 neoplasm of choroid | + + documented in this encounter Administered Medications + +--------+ +-------+------+--------+ | Medication Order | MAR | Action | Dose | Rate | Site | | | Action | Date | | | | + +--------+ +-------+------+--------+ | balanced salt (BSS) ophthalmic | Given | 12/13/19 | 15 mL | | Right | | irrigation INTRAPROCEDURE PRN, | | 17 8:59 | | | Eye | | Starting Mon12/12/16 at 0859, | | AM PDT | | | | | Until Mon12/12/16 at 0955 | | | | | | + +--------+ +-------+------+--------+ +---+---+ | | | +---+---+ + +-------+ +--------+---+---+ | cyclopentolate 1%-PHENYLEPHrine | Given | 12/13/19 | 1 drop | | | | 2.5%-tropicamide 0.25% | | 17 7:05 | | | | | (SUPERDROPS) ophthalmic drops 1 | | AM PDT | | | | | drop 1 drop, Right Eye, EVERY 5 | | | | | | | MINUTES NEEDED, 2 doses, | | | | | | | Starting Mon12/12/16 at 0633, | | | | | | | Until Mon12/12/16 at 0705, | | | | | | | pre-procedure dilation | | | | | | + +-------+ +--------+---+---+ +-------+ +--------+---+---+ | Given | 12/13/19 | 1 drop | | | | | 17 7:00 | | | | | | AM PDT | | | | +-------+ +--------+---+---+ + +---+ | | | + +---+ | fentaNYL (SUBLIMAZE) injection | | | 25 mcg 25 mcg, intravenous, | | | POSTPROCEDURE PRN, 8 doses, | | | Starting Mon12/12/16 at 0853, | | | Until Mon12/12/16 at 1728, severe | | | pain while in Phase I Recovery | | + +---+ | | | + +---+ + +-------+ + +---+---+ | HYDROcodone-acetaminophen | Given | 12/13/19 | 1 tablet | | | | (NORCO) 5-325 mg tablet 1-2 | | 17 10:37 | | | | | tablet 1-2 tablet, oral, | | AM PDT | | | | | NEEDED, 1 dose, Starting Mon | | | | | | | 12/12/16 at 0949, Until Mon | | | | | | | 12/12/16 at 1037, post-op moderate | | | | | | | pain | | | | | | + +-------+ + +---+---+ +---+---+ | | | +---+---+ + +---------+ + + +---+ | lactated Ringers IV 10 mL/hr, | New Bag | 12/13/19 | 10 mL/hr | 10 mL/hr | | | intravenous, CONTINUOUS, Starting | | 17 7:13 | | | | | 12/12/16 at 0730, Until Mon | | AM PDT | | | | | 12/12/16 at 1728 | | | | | | + +---------+ + + +---+ + +---+ | | | + +---+ | lactated Ringers IV 500 mL, | | | intravenous, POSTPROCEDURE PRN, 1 | | | dose, Starting Mon12/12/16 at | | | 0853, Until Mon12/12/16 at 1728, | | | nausea/vomiting due to | | | dehydration | | + +---+ | | | + +---+ + +-------+ +------+---+--------+ | Local with hyaluronidase: | Given | 12/13/19 | 2 mL | | Right | | lidocaine 2% - bupivacaine 0.75% | | 17 9:41 | | | Eye | | - hyaluronidase 150 units/mL 1 mL | | AM PDT | | | | | 1:10:10) INTRAPROCEDURE PRN, | | | | | | | Starting Mon12/12/16 at 0903, | | | | | | | Until Mon12/12/16 at 0955 | | | | | | + +-------+ +------+---+--------+ +-------+ +------+---+--------+ | Given | 12/13/19 | 3 mL | | Right | | | 17 9:03 | | | Eye | | | AM PDT | | | | +-------+ +------+---+--------+ + +---+ | | | + +---+ | naloxone (NARCAN) injection | | | intravenous, POSTPROCEDURE PRN, | | | Starting Mon12/12/16 at 0853, | | | Until Mon12/12/16 at 1728, | | | hypopnea | | + +---+ | | | + +---+ + +-------+ +---------+---+--------+ | | Given | 12/13/19 | 1 strip | | Right | | shavaxzn-zbuylswmq-fjtpcnjdfdshy | | 17 8:59 | | | Eye | | (MAXITROL) 3.5 mg/g-10,000 | | AM PDT | | | | | unit/g-0.1 % ophthalmic ointment | | | | | | | INTRAPROCEDURE PRN, Starting Mon | | | | | | | 12/12/16 at 0859, Until Mon | | | | | | | 12/12/16 at 0955 | | | | | | + +-------+ +---------+---+--------+ + +---+ | | | + +---+ | oxyCODONE (immediate release) | | | (ROXICODONE) tablet 5-10 mg 5-10 | | | mg, oral, NEEDED, 1 dose, | | | Starting 12/12/16 at 0949, | | | Until 12/12/16 at 1728, | | | post-op severe pain | | + +---+ | | | + +---+ documented in this encounter"
--- OUTSIDE RECORDS SUMMARY | ~2020-01-03 | XMS | Encounter Summary ---
Demographics + + + | Address | [address] | | | [place] [address] | + + + | Home Phone | | + + + | Preferred Language | Unknown | + + + | Marital Status | Single | + + + | Pentecostalism Affiliation | NON | + + + | Race | White | + + + | Ethnic Group | Not or | + + + Author + + + | Author | [facility] | + + + | Organization | [facility] | + + + | Address | Unknown | + + + | Phone | Unavailable | + + + Support + + +---------+ + | Name | Relationship | Address | Phone | + + +---------+ + | Sheron Rivera | ECON | Unknown | | + + +---------+ + Care Team Providers + +------+ + | Care Ham Stringer Name | Role | Phone | + +------+ + | Tom Sheppard MD | PCP | | + +------+ + Reason for Visit + +--------+ + | Reason | Onset | Comments | | | Date | | + +--------+ + | Pre-op evaluation | 12/07/ | | | | 2016 | | + +--------+ + Encounter Details +--------+ + + + + | Date | Type | Department | Care Team | Description | +--------+ + + + + | 12/07/ | Telephone-S | Preoperative | | Pre-op evaluation | | 2017 | hildaduled | [facility] | | | | | | [facility] | | | | | | Stay [address] | | | [address] | | | | | | Mailcode: [id number] | | | | | | [facility] [address] | | | | | | [address] [place], [place] | | | | | | [address] | | | | | | [phone] | | | +--------+ + + + + Anesthesia Record + + + + + | Procedure Name | Responsible | Anesthesia Start | Anesthesia Stop Time | | | Anesthesiologist | Time | | + + + + + | I-125 PLAQUE | Mingo Denney MD | 12/12/16824 | 12/12/16 0958 | | INSERTION RIGHT | | | | | *IMAGING NEEDED: | | | | | ULTRASOUND* (Right | | | | | Eye) | | | | + + + + + +----+---+ + + | Da | T | Event | Comment | | te | i | | | | | m | | | | | e | | | +----+---+ + + | 08 | 0 | Eq Check | Anesthesia machine checked Equipment verified | | /2 | 7 | | | | 1/ | 5 | | | | 20 | 9 | | | | 17 | | | | +----+---+ + + | | 0 | Pt. Check | Prior to anesthesia start, pt. Identified, examined, chart | | | 8 | | reviewed, [place] held, anesthetic plan made or approved by | | | 0 | | attending anesthesiologist. NPO status confirmed as appropriate | | | 4 | | for procedure Preoperative evaluation: unchanged | +----+---+ + + | | 0 | An Start | | | | 8 | | | | | 2 | | | | | 5 | | | +----+---+ + + | | 0 | An Start | | | | 8 | Data | | | | 2 | | | | | 8 | | | +----+---+ + + | | 0 | Vitals | Monitors applied Vital signs checked Patient ready for anesthesia | | | 8 | Checked | | | | 3 | | | | | 0 | | | +----+---+ + + | | 0 | SGA | | | | 8 | | | | | 3 | | | | | 5 | | | +----+---+ + + | | 0 | Ready | | | | 8 | | | | | 3 | | | | | 5 | | | +----+---+ + + | | 0 | Abx held | Contraindicated, or not indicated for this procedure, or already | | | 8 | Medical or | receiving antibiotics | | | 4 | Surgical | | | | 1 | Reason | | +----+---+ + + | | 0 | Incision | | | | 8 | | | | | 5 | | | | | 5 | | | +----+---+ + + | | 0 | Local | | | | 9 | Anesthetic | | | | 0 | by Surgeon | | | | 7 | | | +----+---+ + + | | 0 | Surgery end | | | | 9 | | | | | 5 | | | | | 1 | | | +----+---+ + + | | 0 | SGA Removed | | | | 9 | | | | | 5 | | | | | 2 | | | +----+---+ + + | | 0 | an stop | | | | 9 | data | | | | 5 | | | | | 5 | | | +----+---+ + + | | 0 | PACU Rpt | | | | 9 | Given | | | | 5 | | | | | 8 | | | +----+---+ + + | | 0 | Anesthesia | | | | 9 | End | | | | 5 | | | | | 8 | | | +----+---+ + + +------+ | Meds | +------+ + + + No medications | on file. | + + + + + | No agents on file. | + + + + | No blood administrations on file. | + + +--------+ + + + | Type | Details | Placement | Removal | +--------+ + + + | Periph | 12/12/16; (pre op ); Upper Arm; | 12/12/16 0000 by | 12/12/16 1116 by | | eral | 20 g; 12/12/16; 1116 | Melida Jimenez RN | Melida Jimenez RN | | IV | | | | +--------+ + + + | Incisi | 12/12/16; 0956; Right; eye; | 12/12/16 0956 by | 12/12/16 1116 by | | on | 12/12/16; 1116 | Melida Jimenez RN | Melida Jimenez RN | +--------+ + + + documented in this encounter Social History + +-------+ +--------+------+ | Tobacco [...] | 2 Standard drinks | 2.0 | | | | or equivalent | | | + + +---------+ + + + + | Sex Assigned at | Date Recorded | | | | + + + | Not on file | | + + + documented as of this encounter Patient Instructions Patient Instructions Natty Vigil RN - 12/07/2016 1:36 PM PDT PREOPERATIVE INSTRUCTIONS Do not eat or drink anything after midnight the night before surgery. May TAKE the following medications with a sip of water on the morning of surgery: ALODIPINE 5 MG TABLET Do NOT take the following medications on the morning of surgery: VITAMIN D-3 ORAL NICOTINAMIDE ORAL GLUCOSAMINE SULFATE 750 MG TABLET HYDROCHLOROTHIAZIDE 12.5 MG CAPSULE MULTIVITAMIN ORAL Unless otherwise directed by your surgeon, do not take any Aspirin, vitamin E or non-jorge roidal anti-inflammatory (NSAIDs i.e. Advil, Aleve, Ibuprofen) or herbal supplements seven d ays prior to your surgery. These drugs may interfere with normal blood clotting and may caus e excessive bleeding and bruising during or after the surgery. If you need a pain medication for general purposes, use Tylenol as directed. If you are in doubt about any medications that you are taking, please contact our office . Important Guidelines Do not shave the surgical area Do not smoke, drink alcohol or use recreational drugs for 24 hours before your surgery Do not eat any hard candy or chew gum after midnight the night before your surgery. Watch for any change in your health condition. Let your surgeon know right away if you do not feel well. Do not wear makeup, perfume, lotions or powder. Remove any nail azerbaijani from at least one fingernail. Do not wear any jewelry to the hospital. Wear loose, comfortable clothing. Bring the case and solution for your contact lenses or wear your glasses. Leave all your valuables at home. Allow enough travel time so you re not late for your check in for surgery. Take a bath or shower and remember to shampoo your hair using your usual hair product be fore your arrival at the hospital. Please remember to brush your teeth the night before and the morning of your procedure. Surgery Check in Locations [facility], sixth floor Surgery Check in Time: Someone from your surgeon's office or [facility] will provide you with information regarding your check in time. If you have any questions about this, pl ease contact your surgeon's office. Going Home Your surgical team will decide when you are medically ready to go home. If you are released to go home on the same day as your procedure/surgery please note the following: You will not be able to drive. You will be required to have a competent adult drive you or accompany you by taxi or pub lic transportation on the day of discharge. It is also required that you have a competent adult assist you and look after you on the first night after you have undergone regional blocks (72 hours for patients going home with regional block pump), deep sedation, and/or general anesthesia. If you have questions or concerns after you go home, call your doctor s office. If i t is after office hours, call the [facility] chocolate production machine operator at [phone] and ask them to page your do ctor. documented in this encounter Miscellaneous Notes Telephone Encounter - Natty Vigil RN - 12/07/2016 1:39 PM PDTPhone appointment compl eted as scheduled. Documentation to be found in the Notes and Trans Encounter tab in [employer]. documented in thi s encounter Plan of Treatment +--------+---------+ + + + | Date | Type | Specialty | Care Team | Description | +--------+---------+ + + + | 03/02/ | Office | Ophthalmology | Jennifer Hall, | | | 2019 | Visit | | ,PhD [address] | | | | | | [place], [place] | | | | | | [address] | | | | | | [phone] | | | | | | | | +--------+---------+ + + + documented as of this encounter Visit Diagnoses Not on filedocumented in this encounter"
--- OUTSIDE RECORDS SUMMARY | ~2020-01-03 | XMS | Encounter Summary ---
Demographics + + + | Address | [address] | | | [place] [address] | + + + | Home Phone | | + + + | Preferred Language | Unknown | + + + | Marital Status | Single | + + + | Episcopalian Affiliation | NON | + + + | Race | White | + + + | Ethnic Group | Not or | + + + Author + + + | Author | [facility] | + + + | Organization | [facility] | + + + | Address | Unknown | + + + | Phone | Unavailable | + + + Support + + +---------+ + | Name | Relationship | Address | Phone | + + +---------+ + | Sheron Rivera | ECON | Unknown | | + + +---------+ + Care Team Providers + +------+ + | Care Supply Chain Specialist Name | Role | Phone | + +------+ + | Tom Sheppard MD | PCP | | + +------+ + Encounter Details +--------+ + + + + | Date | Type | Department | Care Team | Description | +--------+ + + + + | 02/19/ | MyChart | [facility] | Jennifer Hall, | referral for shots | | 2018 | Encounter | [facility] | ,PhD [address]45 | | | | | Oncology at [facility] | [address] | | | | | [address] | [place], [place] | | | | | Dr [facility] | [address] | | | | | [place], 5th floor | [phone] | | | | | [place] [address] | | | | | | [phone] | | | +--------+ + + + [...] | | 2020 | Visit | | ,PhD [address] | | | | | | [address] | | | | | | [place], [place] | | | | | | [address] | | | | | | [phone] | | | | | | | | +--------+---------+ + + + documented as of this encounter Visit Diagnoses Not on filedocumented in this encounter"
--- OUTSIDE RECORDS SUMMARY | ~2020-01-03 | XMS | Encounter Summary ---
Demographics + + + | Address | [address] | | | [place] [address] | + + + | Home Phone [...] Author + + + | Author | [facility] | + + + | Organization | [facility] | + + + | Address | Unknown | + + + | Phone | Unavailable | + + + Support + + +---------+ + | Name | Relationship | Address | Phone | + + +---------+ + | Sheron Rivera | ECON | Unknown | | + + +---------+ + Care Team Providers + +------+ + | Care Patrol Police Sergeant Name | Role | Phone | + +------+ + | Tom Sheppard MD | PCP | | + +------+ + Encounter Details +--------+ + + + + | Date | Type | Department | Care Team | Description | +--------+ + + + + | 02/21/ | MyChart | [facility] | Jennifer Hall, | RE: referral | | 2018 | Encounter | [facility] | ,PhD [address] | | | | | Oncology at [facility] | [address] | | | | | [address] | [place], [place] | | | | | Dr [facility] | [address] | | | | | [place], 5th floor | [phone] | | | | | [place] [address] | | | | | | [phone] | | | +--------+ + + + [...] this encounter Miscellaneous Notes Telephone Encounter - Marjan Brock - 02/27/2018 2:30 PM PSTSpoke with patient on 02/27/18 phone call to inform her that referral had been submitted. elephone Encounter - Jennifer Hall MD,PhD - 02/26/2018 11:33 AM PSTRouting to Marjan to make the referral to Dr. Franco. Please call his office and e nsure this referral is ok with him. Sounds like it may work. JENNIFER HALL MD,PhD elephone Encoun ter - Marjan Brock - 02/22/2018 8:[address] Arvind Franco' information, if you a re okay with the patient seeing this provider I will let her know. [email or web address] documented in this encount er Plan of Treatment +--------+---------+ + + + | Date | Type | Specialty | Care Team | Description | +--------+---------+ + + + | 03/02/ | Office | Ophthalmology | Jennifer Hall, | | | 2019 | Visit | | ,PhD [address] | | | | | | [address] | | | | | | [place], [place] | | | | | | [address] | | | | | | [phone] | | | | | | | | +--------+---------+ + + + documented as of this encounter Visit Diagnoses Not on filedocumented in this encounter"
--- OUTSIDE RECORDS SUMMARY | ~2020-01-03 | XMS | Encounter Summary ---
Demographics + + + | Address | [address] | | | [place] [address] | + + + | Home Phone | | + + + | Preferred Language | Unknown | + + + | Marital Status | Single | + + + | Jainism Affiliation | NON | + + + | Race | White | + + + | Ethnic Group | Not or | + + + Author + + + | Author | [facility] | + + + | Organization | [facility] | + + + | Address | Unknown | + + + | Phone | Unavailable | + + + Support + + +---------+ + | Name | Relationship | Address | Phone | + + +---------+ + | Sheron Rivera | ECON | Unknown | | + + +---------+ + Care Team Providers + +------+ + | Care Clinical Cytopathologist Name | Role | Phone | + +------+ + PCP | Unavailable | + +------+ + Encounter Details +--------+ + + + + | Date | Type | Department | Care Team | Description | +--------+ + + + + | 02/23/ | Hospital | Dermatopathology | | | | 2016 | Encounter | [address] | | | | | | Mailcode: [id number] | | | | | | [place] [facility] | | | | | | and Healing, | | | | | | [facility], [facility] | | | | | | [place], [place] | | | | | | [address] | | | | | | [phone] | | | +--------+ + + + [...] | 2019 | Visit | | MDPhD [address] | | | | | | [address] | | | | | | [place], [place] | | | | | | [address] | | | | | | [phone] | | | | | | | | +--------+---------+ + + + documented as of this encounter Procedures + +--------+ + + + | Procedure Name | Priori | Date/Time | Associated Diagnosis | Comments | | | ty | | | | + +--------+ + + + | DERM PATHOLOGY | Routin | 02/24/2016 | Melanoma in situ | Results for this | | | e | | of left upper | procedure are in the | | | | | extremity including | results section. | | | | | shoulder (HCC) Scar | | | | | | conditions and | | | | | | fibrosis of skin | | + +--------+ + + + documented in this encounter Results DERM PATHOLOGY (02/24/2016) + + + + + + | Component | Value | Ref Range | Performed | Pathologist | | | | | At | Signature | + + + + + + | DERMATOPATH | SOURCE OF SPECIMEN:A Lt. | | [facility] | | | OLOGY(WET | upper arm, excision | | DERMATOPATH | | | MNT) | CLINICAL | | OLOGY | | | | DESCRIPTION:R/o MIS | | | | | | specimen tagged at | | | | | | 12:00; [id number]. | | | | | | GROSS | | | | | | DESCRIPTION:Received in | | | | | | formalin is a specimen | | | | | | labeled Oliver, | | | | | | Samina:A: Specimen is | | | | | | labeled "Lt upper arm" | | | | | | and consists of an | | | | | | ellipse of | | | | | | [id number] | | | | | | skin, [id number]. The | | | | | | specimen is oriented by | | | | | | a suture at oneapex, | | | | | | which is designated as | | | | | | 12:00. With the suture | | | | | | in the 12:00 | | | | | | position,the specimen is | | | | | | inked blue from | | | | | | 12:00-3:00-6:00 and | | | | | | black | | | | | | from6:00-9:00-12:00. | | | | | | The tissue is serially | | | | | | sectioned from 12:00 to | | | | | | 6:00 andsubmitted | | | | | | respectively in | | | | | | cassettes A1 | | | | | | | | | | | | A5. MICROSCOPIC | | | | | | DESCRIPTION:There is | | | | | | horizontally arranged | | | | | | fibrosis extending | | | | | | across the | | | | | | centralportion of the | | | | | | dermis. Adjacent to the | | | | | | scar, in some foci, | | | | | | there is asubtle | | | | | | increase in single | | | | | | melanocytes distributed | | | | | | along, and focally | | | | | | abovethe basal layer | | | | | | (highlighted with | | | | | | Melan-A in A3). Most of | | | | | | the melanocyticnuclei | | | | | | are moderately large, | | | | | | and round to oval, and | | | | | | most of the cellscontain | | | | | | moderate to increased | | | | | | amounts of amphophilic | | | | | | cytoplasm. | | | | | | DIAGNOSIS:MELANOMA IN | | | | | | SITU, LEFT UPPER ARM, | | | | | | AND SCAR. NOTE: | | | | | | The residual melanoma in | | | | | | situ is excised, | | | | | | extending to within | | | | | | amillimeter or so of the | | | | | | black-inked peripheral | | | | | | margin (A3; | | | | | | approximately 9o'clock | | | | | | region). Close follow-up | | | | | | is therefore advised. | | | | | | KPW:mm11/7/16 | | | | | | My electronic | | | | | | signature indicates that | | | | | | I have personally | | | | | | reviewed alldiagnostic | | | | | | slides, the gross and/or | | | | | | microscopic portion of | | | | | | thisreport and | | | | | | formulated the final | | | | | | diagnosis. 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
--- OUTSIDE RECORDS SUMMARY | ~2020-01-03 | XMS | Encounter Summary ---
Demographics + + + | Address | [address] | | | [place] [address] | + + + | Home Phone | | + + + | Preferred Language | Unknown | + + + | Marital Status | Single | + + + | Congregational Affiliation | NON | + + + | Race | White | + + + | Ethnic Group | Not or | + + + Author + + + | Author | [facility] | + + + | Organization | [facility] | + + + | Address | Unknown | + + + | Phone | Unavailable | + + + Support + + +---------+ + | Name | Relationship | Address | Phone | + + +---------+ + | Sheron Rivera | ECON | Unknown | | + + +---------+ + Care Team Providers + +------+ + | Care Pipe Organ Technician Name | Role | Phone | + +------+ + | Tom Sheppard MD | PCP | | + +------+ + Encounter Details +--------+ + + + + | Date | Type | Department | Care Team | Description | +--------+ + + + + | 07/18/ | Documentati | NON[facility] | Unknown . | | | 2019 | on | Department | | | +--------+ + + + [...] | 2019 | Visit | | ,PhD [address] | | | | | | [address] | | | | | | [place], [place] | | | | | | [address] | | | | | | [phone] | | | | | | | | +--------+---------+ + + + documented as of this encounter Visit Diagnoses Not on filedocumented in this encounter"
--- OUTSIDE RECORDS SUMMARY | ~2020-01-03 | XMS | Encounter Summary ---
Demographics + + + | Address | [address] | | | [place] [address] | + + + | Home Phone | | + + + | Preferred Language | Unknown | + + + | Marital Status | Single | + + + | Yarsani Affiliation | NON | + + + | Race | White | + + + | Ethnic Group | Not or | + + + Author + + + | Author | [facility] | + + + | Organization | [facility] | + + + | Address | Unknown | + + + | Phone | Unavailable | + + + Support + + +---------+ + | Name | Relationship | Address | Phone | + + +---------+ + | Sheron Rivera | ECON | Unknown | | + + +---------+ + Care Team Providers + +------+ + | Care Desktop Manager Name | Role | Phone | + +------+ + | Tom Sheppard MD | PCP | | + +------+ + Reason for Visit + + + | Reason | Comments | + + + | Follow-up visit | | + + + Benefits Check [...] [place], | | | | | | [address] | ,PhD [address] | | | | | | [address] | | | | | | | [address] | [address] | | | | | | [address] [address] | | | | | | Phone: | [place], [place] | | | | | | [phone] | [address] | | | | | | Fax: | Phone: | | | | | | [phone] | [phone] | | | | | | | Fax: | | | | | | | [phone] | +--------+--------+ + + + + Encounter Details +--------+---------+ + + + | Date | Type | Department | Care Team | Description | +--------+---------+ + + + | 02/05/ | Office | [facility] | Jennifer Hall, | 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[facility] | ,PhD [address] | melanoma, right | | | | Oncology at [facility] | [address] | ([facility]) | | | | [place] [address] | [place], [place] | | | | | Dr [facility] | [address] | | | | | [address] | [phone] | | | | | [place] [address] | | | | | | [phone] | | | +--------+---------+ + + + [...] encounter Progress Notes Jennifer Hall MD,PhD - 02/05/2018 3:00 PM PDTFormatting of this note might be differen t from the original. Return Visit Progress Note 02/05/2018 CC: Follow-up visit HPI: Samina Boyd is a 72 y.o. 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 Accompanied today by sister, Sheron. HPI: Here for routine f/u. No new concerns regarding eyes/vision. Does note a " spot " in the vision. Yes/No Eye(s) affected Decreased Vision n na Eye Pain n na Flashing lights y right New floaters n na Double vision n na Systemic Care: PCP: Tom Sheppard MD Oncologist, if applicable: none Care provider managing metastatic surveillance (for patients treated for uveal melanoma): P CP Surveillance imaging: Patient reports CXR and liver MRI in 01/2018. No reports available to date but per patient normal. 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 No evidence of tumor activity. --Following with Dr. Tom Sehppard for systemic surveillance including periodic imaging of the liver and lungs. --RTC approximately 6 months for evaluation of treatment effect, sooner PRN. Radiation retinopathy, right eye --Discussed with patient natural progression of radiation retinopathy and the possibility o f initiating Avastin injections. There is some data demonstrating that Avastin can improve r adiation retinopathy-associated macular edema with improved vision, and that early treatment may be beneficial, but the durability of the response remains unclear. All questions answer ed. --Referral to local retina provider, Dr. Alvarez for evaluation and treatment. I reviewed all components above, made necessary revisions and performed critical portions o f the history and examination. Jennifer Hall MD PhD Ocular Oncology Comb Setter, Department of Ophthalmology [facility], [facility] [phone] documented in th is encounter Plan of Treatment +--------+---------+ + + + | Date | Type | Specialty | Care Team | Description | +--------+---------+ + + + | 03/02/ | Office | Ophthalmology | Jennifer Hall, | | | 2019 | Visit | | ,PhD [address] | | | | | | [address] | | | | | | [place], [place] | | | | | | [address] | | | | | | [phone] | | | | | | | | +--------+---------+ + + + documented as of this encounter Procedures + +--------+ + + + | Procedure Name | Priori | Date/Time | Associated Diagnosis | Comments | | | ty | | | | + +--------+ + + + | OCT, RETINA | Routin | 02/05/2018 | Choroidal | Results for this | | | e | 4:01 PM | malignant melanoma, | procedure are in the | | | | PDT | right ([facility]) | results section. | + +--------+ + + + | FUNDUS PHOTOS | Routin | 02/05/2018 | Choroidal | Results for this | | | e | 3:59 PM | malignant melanoma, | procedure are in the | | | | PDT | right ([facility]) | results section. | + +--------+ + + + | B SCAN ULTRASOUND - | Routin | 02/05/2018 | Choroidal | Results for this | | OD - RIGHT EYE | e | 3:58 PM | malignant melanoma, | procedure are in the | | | | PDT | right ([facility]) | results section. | + +--------+ + + + documented in this encounter Results OCT, RETINA (02/05/2018 4:01 PM PDT) + + + | Narrative | Performed At | + + + | Concrete Engineering Technician | [facility] | | DocumentationRight EyeQuality: good Central macular thickness: | [facility] | | 300 Segmentation: accurate Left EyeQuality: good Central | | | macular thickness: 289 Segmentation: accurate Provider | | | DocumentationRight EyeContour: central thickening, noncentral | | | atrophy Fluid and related findings: IRF Left EyeContour: | | | normal macula Fluid and related findings: no fluid | | | | | |Left Eye | | |Quality: good | | | | | |Central macular thickness: 289 | | |Segmentation: accurate | | | | | | | | |Provider Documentation | | |Right Eye | | |Contour: central thickening, noncentral atrophy | | |Fluid and related findings: IRF | | | | | | | | |Left Eye | | |Contour: normal macula | | |Fluid and related findings: no fluid | | + + + + + + + + | Performing | Address | City/State/Zipcode | Phone Number | | Organization | | | | + + + + + | [facility] | [address] | [place] [address] | | | INSTITUTE | [address] | | | + + + + + FUNDUS PHOTOS (02/05/2018 3:59 PM PDT) + + + | Narrative | Performed At | + + + | Concrete Engineering Technician | [facility] | | DocumentationType was 60, Optos. NotesThere is no concerning change | [facility] | | in the appearance or borders of the treated tumor as compared with | | | photographs taken 06/2017. Exudates. | | |There is no concerning change in the appearance or borders of the treated | | |tumor as compared with photographs taken 06/2017. Exudates. | | | | | + + + + + + + + | Performing | Address | City/State/Zipcode | Phone Number | | Organization | | | | + + + + + | [facility] | [address] | [place] [address] | | | INSTITUTE | [place] | | | + + + + + B SCAN ULTRASOUND - OD - RIGHT EYE (02/05/2018 3:58 PM PDT) + + + | Narrative | Performed At | + + + | This is a | [facility] | | B-scan of the right eye for continued follow of a previously treated | [facility] | | temporal choroidal melanoma showing no appreciable change in | | | echographic appearance. The underlying sclera appears to remain | | | intact. Jennifer Ruiz RT(R) (ARRT) JENNIFER HALL MD,PhD I have | | | reviewed the images and the initial report and I have made any | | | necessary changes to the report as needed based on my assessment. | | | ЮЛИЯ PARNELL MD | | |I have reviewed the images and the initial report and I have made any | | |necessary changes to the report as needed based on my assessment. | | |ЮЛИЯ PARNELL MD | | | | | + + + + + + + + | Performing | Address | City/State/Zipcode | Phone Number | | Organization | | | | + + + + + | [facility] | [address] | [place] [address] | | | [place] | [place] | | | + + + + + documented in this encounter Visit Diagnoses + + | Diagnosis | + + | Choroidal malignant melanoma, right (HCC) | + + documented in this encounter
--- OUTSIDE RECORDS SUMMARY | ~2020-01-03 | XMS | Clinical Summary ---
Demographics + + + | Address | [address] | | | [place] [address] | + + + | Home Phone | | + + + | Preferred Language | Unknown | + + + | Marital Status | | + + + | Evangelical Affiliation | Unknown | + + + | Race | White | + + + | Ethnic Group | Not or | + + + Author + + + | Author | [facility] | | | and [place] | + + + | Organization | [facility] | | | and [...] Team Providers + +------+ + | Care Relocation Specialist Name | Role | Phone | + +------+ + | Tom Sheppard MD | PCP | | + +------+ + Allergies + + + + + + | Active Allergy | Reactions | Severity | Noted | Comments | | | | | Date | | + + + + + + | Oyster | Anaphylaxis | High | 02/25/20 | | | | | | 14 | | + + + + + + Medications + + + +---------+------+------+-------+ | Medication | Sig | Dispensed | Refills | Star | End | Statu | | | | | | t | Date | s | | | | | | Date | | | + + + +---------+------+------+-------+ | amLODIPine | Take 2.5 mg by mouth | | 0 | | | Activ | | (NORVASC) 2.5 mg | Daily. | | | | | e | | tablet | | | | | | | + + + +---------+------+------+-------+ | Cholecalciferol | Take 1 capsule by | | 0 | | | Activ | | (VITAMIN D3) 400 | mouth Daily. | | | | | e | | UNITS CAPS | | | | | | | + + + +---------+------+------+-------+ | | Take 12.5 mg by | | 0 | | | Activ | | hydrochlorothiazide | mouth Daily. | | | | | e | | 25 mg tablet | | | | | | | + + + +---------+------+------+-------+ | MULTIPLE VITAMIN | Take by mouth. | | 0 | | | Activ | | PO | | | | | | e | + + + +---------+------+------+-------+ | GLUCOSAMINE | Take 2 tablets by | | 0 | | | Activ | | CHONDROITIN COMPLX | mouth Daily. | | | | | e | | PO | 750mg-600mg | | | | | | | | respectivley | | | | | | + + + +---------+------+------+-------+ | naproxen sodium | Take 440 mg by mouth | | 0 | | | Activ | | (ALEVE) 220 MG | as needed. | | | | | e | | tablet | | | | | | | + + + +---------+------+------+-------+ | LORazepam (ATIVAN) | TAKE 1 TABLET BY | | 0 | 05/2 | | Activ | | 1 mg tablet | MOUTH EVERY 4 HOURS | | | 9/ | | e | | | NEEDED FOR | | | 20 | | | | | NAUSEA, ANXIETY, AND | | | | | | | | RESTLESSNESS. | | | | | | + + + +---------+------+------+-------+ Active Problems + + + | Problem | Noted Date | + + + | Endometrial cancer | 10/03/2019 | + + + | Pure hypercholesterolemia | | + + + | Essential hypertension, benign | | + + + | Unspecified hypothyroidism | | + + + + + | Overview: ICD-10 Record update | + + + +---+ | Unspecified vitamin D deficiency | | + +---+ + + | Overview: ICD-10 Record update | + + + +---+ | Chronic fatigue syndrome | | + +---+ | Disturbance of skin sensation | | + +---+ | Primary localized osteoarthrosis, lower leg | | + +---+ Encounters +--------+ + + + + | Date | Type | Specialty | Care Team | Description | +--------+ + + + + | 10/10/ | Hospital | Oncology | Marc Denny | Endometrial cancer | | 2020 | Encounter | | MD Stephanie | (SARITHA) (Primary Dx) | +--------+ + + + + | 10/10/ | Hospital | Infusion Therapy | Marc Denny | Endometrial cancer | | 2019 | Encounter | | MD Stephanie | (HCC) (Primary Dx) | +--------+ + + + + | 10/02/ | Orders Only | Oncology | Bimal West | Endometrial cancer | | 2020 | | | JOliver | (HCC) | +--------+ + + + + from Last 3 Months Family History + + +------+ + | Medical History | Relation | Name | Comments | + + +------+ + | COPD | Father | | | + + +------+ + | Ulcer disease | Father | | | + + +------+ + | Coronary artery | Mother | | | | disease | | | | + + +------+ + | Heart defect | Mother | | | + + +------+ + | Hypertension | Mother | | | + + +------+ + | Ulcer disease | Mother | | | + + +------+ + + +------+--------+ + | Relation | Name | Status | Comments | + +------+--------+ + | Father | | | | + +------+--------+ + | Mother | | | | + +------+--------+ + Social History + +-------+ +--------+------+ | [...] on file | | + + + Last Filed Vital Signs + + + [...] + + + + | Weight | 69.3 kg (152 lb 12.5 | 10/11/2019 7:45 AM | | | | oz) | PDT | | + + + + + | Height | 172.7 cm (5' 8") | 02/24/2014 9:00 AM | | | | | PST | | + + + + + | Body Mass Index | 23.23 | 02/24/2014 9:00 AM | | | | | PST | | + + + + + Plan of Treatment + + + + + | Health Maintenance | Due Date | Last | Comments | | | | Done | | + + + + + | Hepatitis C | | | | | Screening | 5 | | | + + + + + | Med Mgmt: Vit D | | | | | | 5 | | | + + + + + | Medication | | | | | Management | 5 | | | + + + + + | Vaccine: | | | | | Dtap/Tdap/Td (1 - | 4 | | | | Tdap) | | | | + + + + + | Breast Cancer | | | | | Screening | 0 | | | + + + + + | Vaccine: | | | | | Pneumococcal 65+ (1 | 0 | | | | of 1 - PPSV23) | | | | + + + + + | Vaccine: Zoster (2 | | 02/07/20 | | | of 3) | 1 | 11 | | + + + + + | Adult Annual | | | | | Wellness Visit | 0 | | | + + + + + | Vaccine: Influenza | | 02/13/20 | | | (#1) | 0 | 19, | | | | | 04/24/19 | | | | | 19, | | | | | 02/07/20 | | | | | 11 | | + + + + + | Med Mgmt: BUN | | 10/11/19 | | | | 1 | 20 | | + + + + + | Med Mgmt: Cr | | 10/11/19 | | | | 1 | 20, | | | | | 11/19/19 | | | | | 17 | | + + + + + | Med Mgmt: K | | 10/11/19 | | | | 1 | 20 | | + + + + + | Med Mgmt: Na | | 10/11/19 | | | | 1 | 20 | | + + + + + | Colorectal Cancer | | 02/25/20 | | | Screening | 4 | 14, | | | (Colonoscopy) | | 02/25/20 | | | | | 14 | | + + + + + Procedures + +--------+ + + + | [...] section. | + +--------+ + + + from Last 3 Months Results CBC with Differential (10/11/2019 7:30 AM PDT) + + + + + + | Component | Value | Ref Range | Performed | Pathologist | | | | | At | Signature | + + + + + + | White Blood | 7.0 | 4.0 - 11.0 K/uL | [facility] | | | Cells | | | [facility] | | | | | | [facility] | | | | | | [facility] - | | | | | | [...] | | Lymphocytes | | | [facility] | | [...] [facility] | | | | | | [facility] | | | | | | [facility] | | | | | | [facility] - | | | | | | LABORATORY | | + + + + + + | % Immature | 0.6 (H)Comment: | 0.0 - 0.4 % | [facility] | | | Granulocyte | Preliminary studies have | | [facility] | | | s | indicated the [...] | | Neutrophils | | K/uL | [facility] | | | | | | [facility]ICAL | | | | | | CENTER - | | | | | | LABORATORY | | + + + + + + | Absolute | 1.73 | 0.60 - 3.20 | [facility] | | | Lymphocytes | | K/uL | [facility] | | [facility] | | | | | | CENTER - | | | | | | LABORATORY | | + + + + + + | Absolute | 0.84 | 0.00 - 1.00 | [facility] | | | Monocytes | | K/uL | [facility] | [...] | | Immature | | K/uL | [facility] | | | Granulocyte | | | [...] + + | [facility] | [address] | [place] | [phone] | | [facility] | | [address] | | | - LABORATORY | | | | + + + + + Comprehensive Metabolic Panel (10/11/2019 7:30 AM PDT) [...] | | | | | mg/dL | [facility] | | | | | | MEDICAL | | | | | | CENTER - | | | | | | LABORATORY | | + + + + + + | eGFR, | >60Comment: GLOMERULAR | >=60 | [facility] | | | non- | FILTRATION | mL/min/1.73m2 | [facility] | | | Pakistani | RATE,ESTIMATED | | MEDICAL | | | | mL/min/1.12x6Tgnv than | | CENTER - | | [...] | | | | | mg/dL | [facility] | | | | | | MEDICAL | | | | | | CENTER - | | | | | | LABORATORY | | + + + + + + | Albumin | 4.5 | 3.2 - 4.8 g/dL | [facility] | | | | [...] | | Phosphatase | | | [facility] | | [...] | bulin Ratio | | | [facility] | | | | | | MEDICAL | | | | | | CENTER - | | | | | | LABORATORY | | + + + + + + | BUN/Creatin | 19.1 | | [facility] | | | ine Ratio | | | [facility] | | [...] + + | [facility] | [address] | [place] | [phone] | | [facility] | | [address] | | | - LABORATORY | | | | + + + + + from Last 3 Months Insurance + +--------+ +--------+ +---------+--------+ | Payer | Benefi | Subscriber | Effect | Phone | Address | Type | | | t Plan | ID | guilherme | | | | | | / | | Dates | | | | | | Group | | | | | | + +--------+ +--------+ +---------+--------+ | MEDICARE | MEDICA | [id number] | 08/23/19 | [phone] | | Medica | | | RE | | 10-Pre | 5 | | re | | | PART A | | sent | | | | | | AND B | | | | | | + +--------+ +--------+ +---------+--------+ | | BORISV | [id number] | 11/26/19 | [phone] | | Indemn | | | A | | 05-Pre | 7 | | ity | | | | | sent | | | | + +--------+ +--------+ +---------+--------+ + +--------+ +--------+ + + | Guarantor Name | Accoun | Relation to | Date | Phone | Billing Address | | | t Type | Patient | of | | | | | | | | | | + +--------+ +--------+ + + | Samina Boyd | Person | Self | [birth year] | | [address] | | [place] | [place] | | 1946 | [phone] | [place] [address] | | | vignesh | | | 1 (Home) | | + +--------+ +--------+ + + | Samina Boyd | Person | Self | [birth year] | | [address] | | [place] | al/Fam | | 1946 | [phone] | [place] [address] | | | vignesh | | | 1 (Home) | | + +--------+ +--------+ + + Advance Directives + + + + + | Type | Date Recorded | Patient | Explanation | | | | 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
--- OUTSIDE RECORDS SUMMARY | ~2020-01-03 | XMS | Encounter Summary ---
Demographics + + + | Address | [address] | | | [place] [address] | + + + | Home Phone | | + + + | Preferred Language | Unknown | + + + | Marital Status | Single | + + + | Sabianist Affiliation | NON | + + + | Race | White | + + + | Ethnic Group | Not or | + + + Author + + + | Author | [facility] | + + + | Organization | [facility] | + + + | Address | Unknown | + + + | Phone | Unavailable | + + + Support + + +---------+ + | Name | Relationship | Address | Phone | + + +---------+ + | Sheron Rivera | ECON | Unknown | | + + +---------+ + Care Team Providers + +------+ + | Care Technical Designer Name | Role | Phone | + +------+ + | Tom Sheppard MD | PCP | | + +------+ + Encounter Details +--------+ + + + + | Date | Type | Department | Care Team | Description | +--------+ + + + + | 08/18/ | Documentati | NON-[facility] | Unknown . | | | 2020 | on | Department | | | [...] | 2019 | Visit | | ,[address] | | | | | | [address] | | | | | | [place], [place] | | | | | | [address] | | | | | | [phone] | | | | | | | | +--------+---------+ + + + documented as of this encounter Visit Diagnoses Not on filedocumented in this encounter"
--- OUTSIDE RECORDS SUMMARY | ~2020-01-03 | XMS | Encounter Summary ---
Demographics + + + | Address | [address] | | | [place] [address] | + + + | Home Phone | | + + + | Preferred Language | Unknown | + + + | Marital Status | Single | + + + | Pentecostal Affiliation | NON | + + + | Race | White | + + + | Ethnic Group | Not or | + + + Author + + + | Author | [facility] | + + + | Organization | [facility] | + + + | Address | Unknown | + + + | Phone | Unavailable | + + + Support + + +---------+ + | Name | Relationship | Address | Phone | + + +---------+ + | Sheron Rivera | ECON | Unknown | | + + +---------+ + Care Team Providers + +------+ + | Care Car Driver Name | Role | Phone | + +------+ + | Tom Sheppard MD | PCP | | + +------+ + Encounter Details +--------+ + + + + | Date | Type | Department | Care Team | Description | +--------+ + + + + | 08/27/ | MyChart | [facility] | Jennifer Hall, | RE: follow up shonna Jones | | 2019 | Encounter | [facility] | ,PhD [address] | [place] | | | | Oncology at [facility] | [address] | | | | | [address] | [place], [place] | | | | | [address] [facility] | [address] | | | | | Anais, 5[address] floor | [phone] | | | | | [place] [address] | | | | | | [phone] | | | +--------+ + + + [...] | 2020 | Visit | | ,[address] | | | | | | [address] | | | | | | [place], [place] | | | | | | [address] | | | | | | [phone] | | | | | | | | +--------+---------+ + + + documented as of this encounter Visit Diagnoses Not on filedocumented in this encounter"
--- OUTSIDE RECORDS SUMMARY | ~2020-01-03 | XMS | Encounter Summary ---
Demographics + + + | Address | [address] | | | [place] [address] | + + + | Home Phone | | + + + | Preferred Language | Unknown | + + + | Marital Status | | + + + | Sikh Affiliation | Unknown | + + + | Race | White | + + + | Ethnic Group | Not or | + + + Author + + + | Author | [facility] | | | and [place] | + + + | Organization | [facility] | | [...] Team Providers + +------+ + | Care Insecticide Sprayer Name | Role | Phone | + +------+ + | Tom Sheppard MD | PCP | | + +------+ + Reason for Visit + + + | Reason | Comments | + + + | Follow-up | | + + + Evaluate & Treat (Routine) + +--------+ + + + + | Status | Reason | Specialty | Diagnoses / | Referred By | Referred To | | | | | Procedures | Contact | Contact | + +--------+ + + + + | Authorizatio | | Oncology | Diagnoses | | [facility] | | n not | | | Endometrial | [place], | Oncology | | Required | | | cancer | [place], | Clinic [address] | | | | | (HCC) | MD [address] | [place] | | | | | Endometrial | [facility], | [place], | | | | | cancer (HCC) | [address] | [place] [address] | | | | | Dx | [place], | Phone: | | | | | Procedures | [place] [address] | [phone] | | | | | [address] | | Fax: | | | | | | | [phone] | + +--------+ + + + + Encounter Details +--------+ + + + + | Date | Type | Department | Care Team | Description | +--------+ + + + + | 10/10/ | Hospital | [facility] | Millikan, Marc | Endometrial cancer | | 2020 | Encounter | [facility] | MD Stephanie [address] | (HCC) (Primary Dx) | | | | [facility] [address] | [place], [place] | | | | | [address] | [address] | | | | | [place] [address] | | | | | | [phone] | | | +--------+ + + + [...] + + + | Blood Pressure | 127/76 | 10/11/2019 7:45 AM | | | | | PDT | | + + + + + | Pulse | 88 | 10/11/2019 7:45 AM | | | | | PDT | | + + + + + | Temperature | 36.2 C (97.2 F) | 10/11/2019 7:45 AM | | | | | PDT | | + + + + + | Respiratory Rate | 16 | 10/11/2019 7:45 AM | | | | | PDT | | + + + + + | Oxygen Saturation | 98% | 10/11/2019 7:45 AM | | | | | PDT [...] documented as of this encounter Progress Notes Marc Denny MD - 10/11/2019 8:00 AM PDTMedical Oncology Follow-Up Note REASON FOR VISIT Current Diagnosis and Disease State: Endometrial cancer, with rapid recurrence of very thre atening disease <3 mo after debulking Current Therapy: About to start Taxol.Carbo/Melanie Specific reason for appointment: C4, D1 in [place] secondary to chemo rodriguez being down i n [place]. INTERVAL HISTORY AND SYSTEM REVIEW Overall doing well. Some neuropathy affecting soles of feet, especially at night. No proble ms with hands yet. Vision has been off, and she has seen her eye doc. 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 Rare night sweats, seem to be decreasing. Appetite is not good, she forc es herself to eat. Denies high fevers, shaking chills, anorexia, nausea, vomiting, weight lo ss. Ear, Nose, Mouth, Throat: Reports hoarness, seeing Dr. Klein this month. Denies odynoph agia, dysphagia, or tinnitus. Cardiovascular: Reports ongoing dyspnea with exertion. Denies shortness of breath chest pa in, palpitations or orthopnea. Respiratory: Reports rare cough, non-productive. Denies hemoptysis, or sputum production. Gastrointestinal: Denies abdominal pain, constipation, diarrhea, melena, or bright red bloo d per rectum. Genitourinary: Denies hematuria or dysuria. Musculoskeletal: Denies joint pain or tenderness. Neurologic: Reports neuropathy since last treatment. Reports blurred vision, seeing Dr. Pina about this. Denies headache. Endocrine: Denies peripheral edema or heat/cold intolerance. Hematologic: Denies spontaneous bruising or bleeding. Integumentary: Reports dry, scaly and some itchy skin, using lotions. Denies rash, wounds or other skin concerns. Pain: Denies pain. CANCER HISTORY Ms. Boyd presented in Feb 2019 with post-menopausal bleeding, and was found to have pelvi c mass. [place] was taken to [place] 03/14/19 with finding of low grade endometrial cancer. Full debu lking surgery undertaken 04/12/19, with finding of significant intra-abdominal spread and 1/ 4 nodes involved (pM1). The tumor was both ER and [place] positive, and showed MSI by IHC criteri a. Adjuvant everolimus with letrozole was started 06/19/19. Unfortunately, she presented just one month later with subcutaneous mets, pelvic and RP nod es, as well as surgical bed recurrence. Taxol, Carbo and Melanie were started 08/07/19; C2 was 08/27 and C3 09/17. PHYSICAL EXAM Appearance: Appears well Head & Neck: Cranial Nerves: Grossly intact Oral cavity: No thrush Nodes: No adenopathy in neck, supraclavs, or axillae Abdomen: No ascites Extremities: No LE edema, no nail changes Skin: Lots of actinic recall NOTABLE CURRENT LAB AND IMAGING RESULTS Creat: 0.89 CBC normal IMPRESSION 1. Recurrent, threatening endometrial cancer. 2. Tolerating Tax/Carbo/Melanie well so far PLAN 1. C4, D1 today as planned 2. Expect remainder of care to be delivered in [place]. Sonja Lema RN - 10/11/2019 8:00 AM PDTREVIEW OF SYSTEMS Constitutional: Reports fatigue, appears to be a little worse with each treatment, takes l onger to recover.. Rare night sweats, seem to be decreasing. Appetite is not good, she forc es herself to eat. Denies high fevers, shaking chills, anorexia, nausea, vomiting, weight lo ss. Ear, Nose, Mouth, Throat: Reports hoarness, seeing Dr. Klein this month. Denies odynoph agia, dysphagia, or tinnitus. Cardiovascular: Reports ongoing dyspnea with exertion. Denies shortness of breath chest pa in, palpitations or orthopnea. Respiratory: Reports rare cough, non-productive. Denies hemoptysis, or sputum production. Gastrointestinal: Denies abdominal pain, constipation, diarrhea, melena, or bright red bloo d per rectum. Genitourinary: Denies hematuria or dysuria. Musculoskeletal: Denies joint pain or tenderness. Neurologic: Reports neuropathy since last treatment. Reports blurred vision, seeing Dr. Pina about this. Denies headache. Endocrine: Denies peripheral edema or heat/cold intolerance. Hematologic: Denies spontaneous bruising or bleeding. Integumentary: Reports dry, scaly and some itchy skin, using lotions. Denies rash, wounds or other skin concerns. Pain: Denies pain. Note: Here for follow up with Dr. Denny, labs and treatment. My chart: Active documented in this encounter Plan of Treatment Not on filedocumented as of this encounter Visit Diagnoses + + | Diagnosis | + + | Endometrial cancer (HCC) - Primary Malignant neoplasm of corpus uteri, except isthmus | + + documented in this encounter"
--- OUTSIDE RECORDS SUMMARY | ~2020-01-03 | XMS | Encounter Summary ---
Demographics + + + | Address | [address] | | | [place] [address] | + + + | Home Phone | | + + + | Preferred Language | Unknown | + + + | Marital Status | Single | + + + | Mandaeism Affiliation | NON | + + + | Race | White | + + + | Ethnic Group | Not or | + + + Author + + + | Author | [facility] | + + + | Organization | [facility] | + + + | Address | Unknown | + + + | Phone | Unavailable | + + + Support + + +---------+ + | Name | Relationship | Address | Phone | + + +---------+ + | Sheron Rivera | ECON | Unknown | | + + +---------+ + Care Team Providers + +------+ + | Care Finishing Manager Name | Role | Phone | + +------+ + | Tom Sheppard MD | PCP | | + +------+ + Encounter Details +--------+ + + + + | Date | Type | Department | Care Team | Description | +--------+ + + + + | 12/16/ | Pharmacy | [facility] | | | | 2016 | Visit | [address] [place] [address] | | | | | | [place] [address] | | | | | | [phone] | | | +--------+ + + + [...] | 2019 | Visit | | ,[address] | | | | | | [address] | | | | | | [place], [place] | | | | | | [address] | | | | | | [phone] | | | | | | | | +--------+---------+ + + + documented as of this encounter Visit Diagnoses Not on filedocumented in this encounter"
--- OUTSIDE RECORDS SUMMARY | ~2020-01-03 | XMS | Encounter Summary ---
Demographics + + + | Address | [address] | | | [place] [address] | + + + | Home Phone | | + + + | Preferred Language | Unknown | + + + | Marital Status | Single | + + + | Gnosticism Affiliation | NON | + + + [...] Team Providers + +------+ + | Care Real Estate Recruiter Name | Role | Phone | + [...] | +--------+ + + + + | 12/12/ | Anesthesia | [facility] LOC | Mingo Denney, | | | 2017 | Event | [address] | [address] [facility] | | | | | [facility] | [facility] | | | | | [place] [address] | [place], [place] | | | | | | [address] | | | | | | [phone] | | | | | | | | +--------+ + + + + Anesthesia Record + + + + + | Procedure Name | Responsible | Anesthesia Start | Anesthesia Stop Time | | | Anesthesiologist | Time | | + + + + + | I-125 PLAQUE | Mingo Denney MD | 12/12/16 0825 | 12/12/16 0958 | | INSERTION RIGHT [...] | | | 8 | | reviewed, PARQ held, anesthetic plan made or approved by [...] + +------+ | Meds | +------+ + +---------+ | Name | Total | + +---------+ | fentaNYL | 100 mcg | + +---------+ | propofol | 200 mg | + +---------+ | ondansetron | 4 mg | + +---------+ | labetalol | 20 mg | + +---------+ | lactated Ringers IV | 0 mL | + +---------+ + + | Name | + + | Insp Sevo | + + | Et Sevo | + + + + | No [...] + + documented as of this encounter OR Notes Anesthesia Postprocedure Evaluation - Mingo Denney MD - 12/12/2016 11:41 AM PDTFormatti ng of this note might be different from the original. [facility] [id number] Allergies Allergen Reactions Clams Unknown Oyster Extract Unknown Past Surgical History Procedure Laterality Date Carpal tunnel surgery Right 2013 Knee arthroscopy Right 2007 Temp: 36.7 C (98.1 F) Pulse: 63 Resp: 12 BP: 147/65 SpO2: 99 % Evaluation Patient personally seen and evaluated for recovery from anesthesia care, VS including tempe rature and hydration status are normal and ROS including card, resp, Neuro, and GI w/o evide nce of adverse effects Complications nesthesia Procedure Notes - Zoila Almeida CRNA - 12/12/2016 8:51 AM PDTAssociated Order(s): ANE LMAProcedu re Reason for Intubation: For surgical procedure, Location Performed: OR , Patient was preoxyg enated Mask Ventilation Grade 0 - Ventilation by mask not attempted ETT SGA Atraumatic Placement: Yes LMA Type: Air-Q LMA Size: 3.5LMA Size: 3.5 LMA positive for Et co2 Breath Sounds Auscultated: Bilateral and equal Narrative Attending physically present nesthesia Preprocedu re Evaluation - Mingo Denney MD - 12/12/2016 8:12 AM PDTFormatting of this note might b e different from the original. 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 12/07/2016 VITAMIN D-3 ORAL Take by mouth. 12/11/2016 NICOTINAMIDE ORAL Take by mouth. 12/11/2016 GLUCOSAMINE SULFATE 750 MG TABLET Take by mouth. 12/11/2016 HYDROCHLOROTHIAZIDE 12.5 MG CAPSULE Take 12.5 mg by mouth once daily. 12/11/2016 MULTIVITAMIN ORAL Take by mouth. 12/11/2016 No results found for: RATE, ATRIALRATE, MI, QRS, QT, QTC, PAXIS, RAXIS, TAXIS, EKGDX Preoperative Adult Anesthesia Plan Last edited 12/12/16 0812 by Mingo Denney MD ROS Pertinent HPI: 71 y.o. Female with HTN here for placement of radioactive plaque for IOL melanoma. No history of anesthetic complications, had regional/MAC for carpel tunnel. Pulmonary: Within Defined Limits except as noted below No dx of sleep apnea Risks factors for no sleep apnea: Cardiovascular: Functional Capacity: Moderate no CAD hypertension no pacemaker GI/Hepatic: Within Defined Limits except as noted below no GERD : Within Defined Limits except as noted below Endo: Within Defined Limits except as noted below Neurological: Within Defined limits except as noted below Current Pain Level: Current pain level: 0 MS: arthritis Type: osteoarthritis Heme/Onc: Within Defined Limits except as noted below Skin: Comments: Hx multiple previous SCC s/p excision Obstetrics: Within Defined Limits except as noted below. Physical Exam General: Patients general appearance: Healthy Head & Neck/Airway: TM Distance:Normal Dentition: dentition is normal Dental risk discussed with/pt : Yes Mallampati: II Mouth Opening: > = 3 cm C-Spine: normal Neck Anatomy: Normal Jaw Protrusion: Normal, lower incisors can protrude past upper incisors Lung Exam: breath sounds normal Cardiac: Rhythm: regular Rate: normal Abdominal: General Findings: no abdominal tenderness Musculoskeletal: Findings: tone normal Neuro/Psych: alert Integument: - lesion Implants: None, 0812 Anesthesia Plan Comments ASA ASA 2 NPO Status NPO Status: NPO by protocol Monitors/Lines to be used Standard Anesthetic Consideration Avoid N2O Induction Anesthetic Technique General; Comments: During interview, patient expresses strong preference to not be aware o f pressure, etc, during insertion of plaque. Agree on GA/LMA. Obstetric Anesthesia Post-Op Pain Plan Blood Products None; Interpretive Services Informed Consent PARQ discussed with: patient, Procedures, Alternatives, Risks, and Questions discussed and Risk/benefit of anesthesia plan and blood product discussed ; ; Date Consent Series Given: 12/12/2016 8:13 AM Code status in OR Patients Code Status in OR: FULL 12/12 8:12 AM documented in this en counter Miscellaneous Notes PMC/ANE PreOp Note - Mingo Denney MD - 12/12/2016 8:06 AM PDT ROS Pertinent HPI: 71 y.o. Female with HTN here for placement of radioactive plaque for IOL roland anoma. No history of anesthetic complications, had regional/MAC for carpel tunnel. Pulmonary: Within Defined Limits except as noted below No dx of sleep apnea Risks factors for no sleep apnea: Cardiovascular: Functional Capacity: Moderate no CAD hypertension no pacemaker GI/Hepatic: Within Defined Limits except as noted below no GERD : Within Defined Limits except as noted below Endo: Within Defined Limits except as noted below Neurological: Within Defined limits except as noted below Current Pain Level: Current pain level: 0 MS: arthritis Type: osteoarthritis Heme/Onc: Within Defined Limits except as noted below Skin: Comments: Hx multiple previous SCC s/p excision Obstetrics: Within Defined Limits except as noted below. Physical Exam General: Patients general appearance: Healthy Head & Neck/Airway: TM Distance:Normal Dentition: dentition is normal Dental risk discussed with/pt : Yes Mall ampati: II Mouth Opening: > = 3 cm C-Spine: normal Neck Anatomy: Normal Jaw Protrusion: Nor mal, lower incisors can protrude past upper incisors Lung Exam: breath sounds normal Cardiac: Rhythm: regular Rate: normal Abdominal: General Findings: no abdominal tenderness Musculoskeletal: Findings: tone normal Neuro/Psych: alert Integument: - lesion Implants: None, MC/ANE PreOp Note - Natty Vigil RN - 12/07/2016 1:35 PM PDTFormatting of this note might be different fro m the original. ROS Pertinent HPI: Pulmonary: Within Defined Limits except as noted below Cardiovascular: Within Defined Limits except as noted below Functional Capacity: Moderate GI/Hepatic: Within Defined Limits except as noted below : Within Defined Limits except as noted below Endo: Within Defined Limits except as noted below Neurological: Within Defined limits except as noted below Current Pain Level: Current pain level: 0 MS: Within Defined Limits except as noted below Heme/Onc: Within Defined Limits except as noted below Previous Transfusions: transfusion hx Hx:No Malignancy: cancer, Location: Melanoma, Metastasis: Unknown Skin: Within Defined Limits except as noted below Obstetrics: 71 y.o. F scheduled for 12/12/16 I-125 PLAQUE INSERTION IMAGING NEEDED: ULTRASOUND (Right Eye) Location: [facility] Provider: Jennifer Hall MD,PhD . Past medical hx is significant for Choroid melanoma of right eye, HTN Vitals 11/21/2016 11/21/2016 Systolic 138 Diastolic 67 Pulse 74 Weight 77.565 kg (171 lb) Height (in) 68.000 Height (cm) 172.7 cm BMI 26 SpO2 100 BSA 1.93 m2 Pain Scale 0 - Zero OB Information Current H&P reviewed, located under EPIC encounter tab, office visit by Dr. Hay Henley janet ed 11/21/2016. Patient interview complete and pertinent updates documented under patient history. Patient received pre-op instructions per AVS and verbalized good understanding. Phone appoi ntment completed as scheduled. Transportation: sister documented in this e ncounter Plan of Treatment +--------+---------+ + + + | Date | Type | Specialty | Care Team | Description | +--------+---------+ + + + | 03/02/ | Office | Ophthalmology | Jennifer Hall, | | | 2019 | Visit | | ,PhD [address] | | | | [address] | | | | | | [place], [place] | | | | | | [address] | | | | | | [phone] | | | | | | | | +--------+---------+ + + + documented as of this encounter Procedures + +--------+ + + + | Procedure Name | Priori | Date/Time | Associated Diagnosis | Comments | | | ty | | | | + +--------+ + + + | BINH GAUTHIER | Routin | 12/12/2016 | | Results for this | | | e | 10:17 AM | | procedure are in the | | | | PDT | | results section. | + +--------+ + + + documented in this encounter Results BINH GAUTHIER (12/12/2016 10:17 AM PDT) + + + | Narrative | Performed At | + + + | Zoila Almeida CRNA 12/12/2016 8:52 AM Procedure Reason | | | for Intubation: For surgical procedure, Location Performed: OR , | | | Patient was preoxygenated Mask Ventilation Grade 0 - Ventilation by | | | mask not attempted ETT SGA Atraumatic Placement: Yes LMA | | | Type: Air-Q LMA Size: 3.5LMA Size: 3.5 LMA positive for Etco2 | | | Breath Sounds Auscultated: Bilateral and equal Narrative | | | Attending physically present | | + + + documented in this encounter Visit Diagnoses Not on filedocumented in this encounter Administered Medications + +--------+ +--------+------+------+ | Medication Order | MAR | Action | Dose | Rate | Site | | | Action | Date | | | | + +--------+ +--------+------+------+ | fentaNYL citrate (PF) | Given | 12/13/19 | 25 mcg | | | | (SUBLIMAZE) injection | | 17 9:00 | | | | | INTRAPROCEDURE PRN, Starting Mon | | AM PDT | | | | | 12/12/16 at 0840, Until Mon | | | | | | | 12/12/16 at 0955 | | | | | | + +--------+ +--------+------+------+ +-------+ +--------+---+---+ | Given | 12/13/19 | 25 mcg | | | | | 17 8:51 | | | | | | AM PDT | | | | +-------+ +--------+---+---+ | Given | 12/13/19 | 25 mcg | | | | | 17 8:46 | | | | | | AM PDT | | | | +-------+ +--------+---+---+ +---+---+ | | | +---+---+ + +-------+ +-------+---+---+ | labetalol (TRANDATE) IV | Given | 12/13/19 | 10 mg | | | | injection intravenous, | | 17 9:50 | | | | | INTRAPROCEDURE PRN, Starting Mon | | AM PDT | | | | | 12/12/16 at 0950, Until Mon | | | | | | | 12/12/16 at 0958 | | | | | | + +-------+ +-------+---+---+ +-------+ +-------+---+---+ | Given | 12/13/19 | 10 mg | | | | | 17 9:45 | | | | | | AM PDT | | | | +-------+ +-------+---+---+ +---+---+ | | | +---+---+ + +-------+ +------+---+---+ | ondansetron (ZOFRAN) injection | Given | 12/13/19 | 4 mg | | | | INTRAPROCEDURE PRN, Starting Mon | | 17 9:01 | | | | | 12/12/16 at 0901, Until Mon | | AM PDT | | | | | 12/12/16 at 0955 | | | | | | + +-------+ +------+---+---+ +---+---+ | | | +---+---+ + +-------+ +-------+---+---+ | propofol INTRAPROCEDURE PRN, | Given | 12/13/19 | 50 mg | | | | Starting Mon12/12/16 at 0834, | | 17 9:04 | | | | | Until Mon12/12/16 at 0955 | | AM PDT | | | | + +-------+ +-------+---+---+ +-------+ +--------+---+---+ | Given | 12/13/19 | 150 mg | | | | | 17 8:34 | | | | | | AM PDT | | | | +-------+ +--------+---+---+ +---+---+ | | | +---+---+ documented in this encounter"
--- OUTSIDE RECORDS SUMMARY | ~2020-01-03 | XMS | Encounter Summary ---
Demographics + + + | Address | [address] | | | [place] [address] | + + + | Home Phone | | + + + | Preferred Language | Unknown | + + + | Marital Status | Single | + + + | Gnosticist Affiliation | NON | + + + | Race | White | + + + | Ethnic Group | Not or | + + + Author + + + | Author | [facility] | + + + | Organization | [facility] | + + + | Address | Unknown | + + + | Phone | Unavailable | + + + Support + + +---------+ + | Name | Relationship | Address | Phone | + + +---------+ + | Sheron Rivera | ECON | Unknown | | + + +---------+ + Care Team Providers + +------+ + | Care English Instructor Name | Role | Phone | + +------+ + | Tom Sheppard MD | PCP | | + +------+ + Encounter Details +--------+ + + + + | Date | Type | Department | Care Team | Description | +--------+ + + + + | 12/12/ | Procedure | [facility] LOC | | | | 2017 | Pass | [address] [facility] | | | | | | [facility] | | | | | | [place] [address] | | | +--------+ + + + [...] | 2019 | Visit | | MDPhD [address] | | | | | [address] | | | | | | [place], [place] | | | | | | [address] | | | | | | [phone] | | | | | | | | +--------+---------+ + + + documented as of this encounter Visit Diagnoses Not on filedocumented in this encounter"
--- OUTSIDE RECORDS SUMMARY | ~2020-01-03 | XMS | Encounter Summary ---
Demographics + + + | Address | [address] | | | [place] [address] | + + + | Home Phone [...] Author + + + | Author | [facility] | + + + | Organization | [facility] | + + + | Address | Unknown | + + + | Phone | Unavailable | + + + Support + + +---------+ + | Name | Relationship | Address | Phone | + + +---------+ + | Sheron Rivera | ECON | Unknown | | + + +---------+ + Care Team Providers + +------+ + | Care [facility] Name | Role | Phone | + [...] [place], | | | | | | [address] | ,PhD [address] | | | | | | [address] | | | | | | | [address] [address] | [place] | | | | | | [address] [address] | | | | | | Phone: | [place], [place] | | | | | | [phone] | [address] | | | | | | Fax: | Phone: | | | | | | [phone] | [phone] | | | | | | | Fax: | | | | | | | [phone] | +--------+--------+ + + + + Encounter Details +--------+---------+ + + + | Date | Type | Department | Care Team | Description | +--------+---------+ + + + | 07/10/ | Office | [facility] | Jennifer Hall, | 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[facility] | ,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, right | | | | Oncology at [facility] | [address] | (HCC) (Primary Dx) | | | | [address] | [place], [place] | | | | | [facility] | [address] | | | | | [address] | [phone] | | | | | [place] [address] | | | | | | [phone] | | | +--------+---------+ + + + [...] of this encounter Patient Instructions Patient Instructions Jennifer Hall MD,PhD - 07/10/2017 2:00 PM PDTUveal Melanoma Surve illance Imaging Guidelines for Low Risk Patients AJCC clinical stage at diagnosis: Stage I Gene expression profile class: not tested All patients treated for uveal melanoma are at risk for late metastasis due to micrometasta tic disease. For this reason most patients choose to pursue systemic surveillance imaging to evaluate for liver and lung metastases. Most metastatic disease occurs within the first fiv e years after the eye tumor is treated but metastatic disease may appear even decades after treatment. Based upon consensus of the multidisciplinary melanoma team, the general guidelines at [facility] for asymptomatic patients without prior imaging findings of concern are outlined below. Rosalio e patients may prefer more intensive screening, which would include periodic liver MRI and p ossible chest CT. Others may prefer less intensive screening with imaging on an annual basis . The frequency and modality of testing can be titrated to the patient's desire for surveill ance. Surveillance imaging recommendations for low risk patients (AJCC Stage I; GEP Class 1A; mos t iris melanomas): 1. Liver ultrasound* every 6 months x 5 years, then annually. 2. Chest x-ray every 6 months x 5 years. *Liver ultrasound may not be a good choice at low volume centers or for obese patients due to decreased sensitivity in these situations. Abdominal MRI with gadolinium contrast is gene rally preferred in this case. documented in this encounter Progress Notes Jennifer Hall MD,PhD - 07/10/2017 2:00 PM PDTFormatting of this note might be differen t from the original. Return Visit Progress Note 07/10/2017 CC: Follow-up visit HPI: Samina Boyd is a 71 y.o. 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 Notes cataract surgery, left eye about 6 weeks ago. Accompanied today by sister, Sheron. HPI: Here for routine f/u. No new concerns regarding eyes/vision. 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, stage I Medications: Current Outpatient Prescriptions (Other) Medication amLODIPine CALCIUM CARBONATE/VITAMIN D3 (VITAMIN D-3 ORAL) FA/NIACINAMIDE/CUPRIC OX/ZN OX (NICOTINAMIDE ORAL) Glucosamine Sulfate hydroCHLOROthiazide MULTIVITAMIN ORAL Examination: 07/10/2017 Va sc Va cc PH IOP 11:04 AM Right Eye 20/50-2 NI 15 Left Eye 20/20-1 16 A&O x 3 Initial hx, allergies, meds, Va, IOP and above exam elements reviewed / performed by MED VITAL OD OS External Normal Normal Lids mild ptosis Normal Conj White and quiet; well healed White and quiet Cornea All layers clear All layers clear AC Deep and quiet Deep and quiet Iris Normal Normal Lens 2+ NSC 1+ NSC Gonio Comments: DFE OD OS Vit:Normal D: Normal 0.3 M:Moderately elevated variably pigmented choroidal mass in the temporal macula with reduced SRF and mild lipofuscin Vessels: Normal P:Otherwise normal, attached Vit:PVD D: Normal 0.4 M:Normal Vessels: Normal P:Normal Diagnostic Studies: See iProc Reports [facility] Ultrasound B-Scan Long Transv 07/10/2017 2.3 mm 10.10 mm 7.2 mm 11/09/2016 3.0mm 10.4mm 9.8mm Assessment and Plan: Choroidal melanoma, right eye, 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 No evidence of tumor activity. --Reviewed recommendation for metastatic surveillance imaging with PCP or medical oncologis t. She has not had any updated imaging to date, but will plan to set up a visit with her PCP to discuss. General recommendations are again provided below and were provided to the patie nt. --RTC approximately 6 months for evaluation of treatment effect, sooner PRN. Uveal Melanoma Surveillance Imaging Guidelines for Low Risk Patients AJCC clinical stage at diagnosis: Stage I Gene expression profile class: not tested All patients treated for uveal melanoma are at risk for late metastasis due to micrometasta tic disease. For this reason most patients choose to pursue systemic surveillance imaging to evaluate for liver and lung metastases. Most metastatic disease occurs within the first fiv e years after the eye tumor is treated but metastatic disease may appear even decades after treatment. Based upon consensus of the multidisciplinary melanoma team, the general guidelines at [facility] for asymptomatic patients without prior imaging findings of concern are outlined below. Rosalio e patients may prefer more intensive screening, which would include periodic liver MRI and p ossible chest CT. Others may prefer less intensive screening with imaging on an annual basis . The frequency and modality of testing can be titrated to the patient's desire for surveill ance. Surveillance imaging recommendations for low risk patients (AJCC Stage I; GEP Class 1A; mos t iris melanomas): 1. Liver ultrasound* every 6 months x 5 years, then annually. 2. Chest x-ray every 6 months x 5 years. *Liver ultrasound may not be a good choice at low volume centers or for obese patients due to decreased sensitivity in these situations. Abdominal MRI with gadolinium contrast is gene rally preferred in this case. I reviewed all components above, made necessary revisions and performed critical portions o f the history and examination. Jennifer Hall MD PhD Dental Receptionist, Department of Ophthalmology [facility] [phone] documented in th is encounter Plan of Treatment +--------+---------+ + + + | Date | Type | Specialty | Care Team | Description | +--------+---------+ + + + | 03/02/ | Office | Ophthalmology | Jennifer Hall, | | | 2019 | Visit | | ,PhD [address] | | | | | [address] | | | | | | [place], [place] | | | | | | [address] | | | | | | [phone] | | | | | | | | +--------+---------+ + + + documented as of this encounter Procedures + +--------+ + + + | Procedure Name | Priori | Date/Time | Associated Diagnosis | Comments | | | ty | | | | + +--------+ + + + | OCT, RETINA | Routin | 07/10/2017 | Choroidal | Results for this | | | e | 2:21 PM | malignant melanoma, | procedure are in the | | | | PDT | right ([facility]) | results section. | + +--------+ + + + | FUNDUS PHOTOS | Routin | 07/10/2017 | Choroidal | Results for this | | | e | 2:13 PM | malignant melanoma, | procedure are in the | | | | PDT | right ([facility]) | results section. | + +--------+ + + + | B SCAN ULTRASOUND - | Routin | 07/10/2017 | Choroidal | Results for this | | OD - RIGHT EYE | e | 2:07 PM | malignant melanoma, | procedure are in the | | | | PDT | right ([facility]) | results section. | + +--------+ + + + documented in this encounter Results OCT, RETINA (07/10/2017 2:21 PM PDT) + + + | Narrative | Performed At | + + + | [facility] | [facility] | | DocumentationRight EyeCentral macular thickness: 307 Left | [facility] | | EyeCentral macular thickness: 306 Provider DocumentationRight | | | EyeFluid and related findings: SRF Left EyeContour: normal | | | macula Fluid and related findings: no fluid NotesOD: SRF | | | extending from temporal tumor. No IRF. | | |Central macular thickness: 306 | | | | | | | | |Provider Documentation | | |Right Eye | | |Fluid and related findings: SRF | | | | | | | | |Left Eye | | |Contour: normal macula | | |Fluid and related findings: no fluid | | | | | | | | |Notes | | |OD: SRF extending from temporal tumor. No IRF. | | + + + + + + + + | Performing | Address | City/State/Zipcode | Phone Number | | Organization | | | | + + + + + | [facility] | [address] | [place] [address] | | | [facility] | [place] | | | + + + + + FUNDUS PHOTOS (07/10/2017 2:13 PM PDT) + + + | Narrative | Performed At | + + + | [facility] [employer] [facility] | [facility] | | DocumentationType was 60, Optos. NotesThere is no concerning change | [facility] | | in the appearance or borders of the treated tumor as compared with | | | photographs taken 10/2016. | | |There is no concerning change in the appearance or borders of the treated | | |tumor as compared with photographs taken 10/2016. | | | | | + + + + + + + + | Performing | Address | City/State/Zipcode | Phone Number | | Organization | | | | + + + + + | [facility] | [address] | [place] [address] | | | INSTITUTE | [facility]. | | | + + + + + B SCAN ULTRASOUND - OD - RIGHT EYE (07/10/2017 2:07 PM PDT) + + + | Narrative | Performed At | + + + | [facility] | [facility] | | Eloise Oliver was seen in the [facility] [place] | [facility] | | Photography/Ultrasound Department today, 07/10/2017, for ultrasound. | | | This is a follow-up B-scan of the right eye, s/p I-125 plaque | | | 12/12/2016. The ultrasound demonstrates a temporal macula lesion with | | | shallow subretinal fluid overlying its apex. The lesion height is | | | decreased and today measured at 2.3 mm. There is subtle spontaneous | | | flickering motion seen within the lesion. A hypoechoic finding | | | posterior to the lesion is seen at the insertion of the rectus muscle. | | | Measurements in Flowsheets / [facility] Ultrasound. [facility] Ultrasound B-Scan | | | Long Transv 07/10/2017 2.3 mm 10.10 mm 7.2 mm 11/09/2016 3.0mm 10.4mm | | | 9.8mm ARACELI HALL MD,PhD I have reviewed the images | | | and the initial report and I have made any necessary changes to the | | | report as needed based on my assessment. ЮЛИЯ PARNELL MD | | | | | | | | |ARACELI LOPEZ | | |JENNIFER HALL MD,PhD | | | | | |I have reviewed the images [...] [facility] | [address] | [place] [address] | | | INSTITUTE | [place] | | | + + + + + documented in this encounter Visit Diagnoses + + | Diagnosis | + + | Choroidal malignant melanoma, right (HCC) - Primary | + + documented in this encounter"
--- OUTSIDE RECORDS SUMMARY | ~2020-01-03 | XMS | Encounter Summary ---
Demographics + + + | Address | [address] | | | [place] [address] | + + + | Home Phone | | + + + | Preferred Language | Unknown | + + + | Marital Status | Single | + + + | Christianity Affiliation | NON | + + + [...] Team Providers + +------+ + | Care Tacking Stitch Remover Name | Role | Phone | + +------+ + | Tom Sheppard MD | PCP | | + +------+ + Encounter Details +--------+ + + + + | Date | Type | Department | Care Team | Description | +--------+ + + + + | 03/14/ | MyChart | [facility] | Jennifer Hall, | referral | | 2018 | Encounter | [facility] | ,PhD [address] | | | | | Oncology at [facility] | [address] | | | | | [address] | [place], [place] | | | | | [facility] | [address] | | | | | [place], [address] floor | [phone] | | | | | [place] [address] | | | | | | [phone] | | | +--------+ + + + [...] | 2019 | Visit | | MDPhD [address] | | | | | | [address] | | | | | | [place], [place] | | | | | | [address] | | | | | | [phone] | | | | | | | | +--------+---------+ + + + documented as of this encounter Visit Diagnoses Not on filedocumented in this encounter"
--- OUTSIDE RECORDS SUMMARY | ~2020-01-03 | XMS | Encounter Summary ---
Demographics + + + | Address | [address] | | | [place] [address] | + + + | Home Phone | | + + + | Preferred Language | Unknown | + + + | Marital Status | Single | + + + | Roman Catholic Affiliation | NON | + + + [...] Team Providers + +------+ + | Care Lab Nurse Name | Role | Phone | + +------+ + | Tom Sheppard MD | PCP | | + +------+ + Encounter Details +--------+ + + + + | Date | Type | Department | Care Team | Description | +--------+ + + + + | 08/08/ | Documentati | NON-[facility] | Unknown . | | | 2017 | on | Department | | | [...] | 2019 | Visit | | ,PhD [address] | | | | | | [address] | | | | | | [place], [place] | | | | | | [address] | | | | | | [phone] | | | | | | | | +--------+---------+ + + + documented as of this encounter Visit Diagnoses Not on filedocumented in this encounter"
--- OUTSIDE RECORDS SUMMARY | ~2020-01-03 | XMS | Encounter Summary ---
Demographics + + + | Address | [address] | | | [place] [address] | + + + | Home Phone | | + + + | Preferred Language | Unknown | + + + | Marital Status | Single | + + + | Cheondoism Affiliation | NON | + + + | Race | White | + + + | Ethnic Group | Not or | + + + Author + + + | Author | [facility] | + + + | Organization | [facility] | + + + | Address | Unknown | + + + | Phone | Unavailable | + + + Support + + +---------+ + | Name | Relationship | Address | Phone | + + +---------+ + | Sheron Rivera | ECON | Unknown | | + + +---------+ + Care Team Providers + +------+ + | Care Cylinder Sander Operator Name | Role | Phone | + +------+ + | Tom Sheppard MD | PCP | | + +------+ + Reason for Visit + + + | Reason | Comments | + + + | Pre-Admission | | + + + Encounter Details +--------+ + + + + | Date | Type | Department | Care Team | Description | +--------+ + + + + | 11/22/ | PreAdmit | [facility] | Jennifer Hall, | Pre-Admission | | 2017 | Orders | [facility] | ,PhD [address] | | | | | Oncology at [facility] | [address] | | | | | [address] | [place], [place] | | | | | [facility] | [address] | | | | | [address] | [phone] | | | | | [place] [address] | | | | | | [phone] | | | +--------+ + + + [...] | 2019 | Visit | | ,PhD [address] | | | | | | [address] | | | | | | [place], [place] | | | | | | [address] | | | | | | [phone] | | | | | | | | +--------+---------+ + + + documented as of this encounter Visit Diagnoses Not on filedocumented in this encounter"
--- OUTSIDE RECORDS SUMMARY | ~2020-01-03 | XMS | Encounter Summary ---
Demographics + + + | Address | [address] | | | [place] [address] | + + + | Home Phone | | + + + | Preferred Language | Unknown | + + + | Marital Status | Single | + + + | Samaritan Affiliation | NON | + + + | Race | White | + + + | Ethnic Group | Not or | + + + Author + + + | Author | [facility] | + + + | Organization | [facility] | + + + | Address | Unknown | + + + | Phone | Unavailable | + + + Support + + +---------+ + | Name | Relationship | Address | Phone | + + +---------+ + | Sheron Rivera | ECON | Unknown | | + + +---------+ + Care Team Providers + +------+ + | Care Tutoring Assistant Name | Role | Phone | + +------+ + | Tom Sheppard MD | PCP | | + +------+ + Reason for Visit + + + | Reason | Comments | + + + | Ultrasound - B Scan | OD | + + + Encounter Details +--------+ + + + + | Date | Type | Department | Care Team | Description | +--------+ + + + + | 11/09/ | Diagnostic | [facility] | | Ultrasound - B Scan | | 2017 | Visit | [place] | | (OD) | | | | Photography at | | | | | | [address] | | | | | | [address] | | | | | | [facility], [address] | | | | | | [place], [place] | | | | | | [address] | | | +--------+ + + + [...] + documented as of this encounter Progress Jennifer Holder - 11/09/2016 3:30 PM PDTUltrasound-Ultrasound - B Scan - OD was performed. Interpretation for the above study can be found in Dr. 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
--- OUTSIDE RECORDS SUMMARY | ~2020-01-03 | XMS | Encounter Summary ---
Demographics + + + | Address | [address] | | | [place] [address] | + + + | Home Phone | | + + + | Preferred Language | Unknown | + + + | Marital Status | | + + + | Adventism Affiliation | Unknown | + + + | Race | White | + + + | Ethnic Group | Not or | + + + Author + + + | Author | [facility] | | | and [place] | + + + | Organization | [facility] | | | [...] Team Providers + +------+ + | Care Revenue Cycle Manager Name | Role | Phone | + +------+ + PCP | Unavailable | + +------+ + Encounter Details +--------+ + + + + | Date | Type | Department | Care Team | Description | +--------+ + + + + | 05/28/ | Hospital | [facility] | Unknown, | | | 1993 | Encounter | MED CTR XRAY [address] | MD Miguel . | | | | | [address] | | | | | | [place] [address] | (Fax) | | | | | [phone] | | | +--------+ + + + [...] filedocumented as of this encounter Visit Diagnoses Not on filedocumented in this encounter"
--- OUTSIDE RECORDS SUMMARY | ~2020-01-03 | XMS | Encounter Summary ---
Demographics + + + | Address | [address] | | | [place] [address] | + + + | Home Phone | | + + + | Preferred Language | Unknown | + + + | Marital Status | Single | + + + | Adventist Affiliation | NON | + + + | Race | White | + + + | Ethnic Group | Not or | + + + Author + + + | Author | [facility] | + + + | Organization | [facility] | + + + | Address | Unknown | + + + | Phone | Unavailable | + + + Support + + +---------+ + | Name | Relationship | Address | Phone | + + +---------+ + | Sheron Rivera | ECON | Unknown | | + + +---------+ + Care Team Providers + +------+ + | Care Smelter Operator Name | Role | Phone | + +------+ + | Tom Sheppard MD | PCP | | + +------+ + Encounter Details +--------+ + + + + | Date | Type | Department | Care Team | Description | +--------+ + + + + | 08/21/ | MyChart | [facility] | Jennifer Hall, | Appointment 09/03 | | 2020 | Encounter | [facility] | ,PhD [address] | | | | | Oncology at [facility] | [address] | | | | | [address] | [place], [place] | | | | | [facility] | [address] | | | | | [place], [address] floor | [phone] | | | | | [place] [address] | | | | | | [phone] | | | +--------+ + + + [...] | 2019 | Visit | | ,PhD [address] | | | | | [address] | | | | | | [place], [place] | | | | | | [address] | | | | | | [phone] | | | | | | | | +--------+---------+ + + + documented as of this encounter Visit Diagnoses Not on filedocumented in this encounter"
--- OUTSIDE RECORDS SUMMARY | ~2020-01-03 | XMS | Encounter Summary ---
Demographics + + + | Address | [address] | | | [place] [address] | + + + | Home Phone | | + + + | Preferred Language | Unknown | + + + | Marital Status | Single | + + + | Presybeterian Affiliation | NON | + + + [...] Team Providers + +------+ + | Care Equipment Maintenance Tech Name | Role | Phone | + [...] + + + + | 12/16/ | Hospital | [facility] | Jennifer Hall, | | | 2017 | Encounter | STAY [address] [facility] | ,PhD [address] | | | | | Dr Alfred Mejia | [address] | | | | | [facility] | [place], [place] | | | | | [place], [place] | [address] | | | | | [address] | [phone] | | | | | | | [...] + + + | Blood Pressure | 128/80 | 12/16/2016 1:56 PM | | | | | PDT | | + + + + + | Pulse | 60 | 12/16/2016 1:56 PM | | | | | PDT | | + + + + + | Temperature | 36.6 C (97.9 F) | 12/16/2016 1:56 PM | | | | | PDT | | + + + + + | Respiratory Rate | 16 | 12/16/2016 1:56 PM | | | | | PDT | | + + + + + | Oxygen Saturation | 99% | 12/16/2016 1:56 PM | | | | | PDT | | + + + + + | Inhaled Oxygen | - | - | | | Concentration | | | | + + + + + | Weight | 77.1 kg (170 lb) | 12/16/2016 11:47 AM | | | | | PDT | | + + + + + | Height | 172.7 cm (5' 8") | 12/16/2016 11:47 AM | | | | | PDT | | + + + + + | Body Mass Index | 25.85 | 12/16/2016 11:47 AM | | | | | PDT | | + + + + + documented in this encounter Discharge Instructions Instructions Barbra Clemente RN - 12/16/2016Home care after I-125 Plaque insertion and r emoval instructions You may experience some fatigue for [...] ? Uncontrolled nausea Jennifer Hall M.D., Ph.D [phone] or [phone] Arvind Gauthier M.D. [phone] or [phone] Return appointment Date: Time: documented in this [...] + documented as of this encounter H&P Jennifer Smith MD,PhD - 12/16/2016 12:52 PM PDTI have examined the patient and reviewed the History and Physical and have confirmed that it is accurate and current. Jennifer Hall MD,PhD documented in th is encounter Procedure Notes Jennifer Hall MD,PhD - 12/16/2016 1:58 PM PDTAssociated Order(s): PROCEDURE NOTEProced ure Date: 12/16/2016 Pre-operative Diagnosis: Choroidal melanoma, right eye Post-operative Diagnosis: Choroidal melanoma, right eye Procedure: Removal of radioactive plaque, right eye Re-attachment of lateral rectus, right eye Surgeon: Jennifer Hall MD,PhD Mother Superior: None Anesthesia: MAC Implant: None EBL: < 5mL Specimens: None Complications: None Drain: None Indication for Surgery: Samina Boyd is a 71 y.o. female with choroidal melanoma recently status post jeremiah que insertion. She now undergoes surgery for planned plaque removal. Surgical Narrative: The patient was brought into the operating theatre and was placed in supine position. After sufficient sedation was given, a 50:50 mix of 2% xylocaine and 0.75% bupivacaine was inject ed into the retrobulbar space using an Morris needle. The area around the right eye was th en prepped and draped in usual sterile manner for ophthalmic surgery. A lid speculum was jeremiah sarah and the operating microscope was brought over the eye. The conjunctival sutures were rem loco and the plaque was exposed. The nylon sutures were then cut and the plaque was removed. The plaque was inspected and all radioactive seeds were in position in the plaque. The scle ra was examined and found to be intact. The lateral rectus was then secured to the insertion site using the pre-placed suture. The conjunctiva was then closed with 7-0 vicryl. Maxitrol ointment, a gauze patch, and a Lin shield were placed over the eye. The patient was moved to the recovery area in satisfactory condition. I certify that the services of which payment is claimed were medically necessary and that n o qualified resident was available to perform the services. I further understand that these services are subject to post-payment review by the Medicare carrier. Jennifer Hall MD,PhD Reina Engel - 12/12/2016 10:04 AM PDTAssociated Order(s): OPTHALMIC US B-SCANProcedure(s): OPTHALMI C US B-UOYCP-ybjt of the right eye for plaque localization during placement 12/12/2016,Elect ronically signed by Reina Baker at 12/12/2016 10:07 AM PDTdocumented in this encounter Plan of Treatment +--------+---------+ + + + | Date | Type | Specialty | Care Team | Description | +--------+---------+ + + + | 03/02/ | Office | Ophthalmology | Jennifer Hall, | | | 2019 | Visit | | ,PhD [address] | | | | | [address] | | | | | | [place], [place] | | | | | | [address] | | | | | | [phone] | | | | | | | | +--------+---------+ + + + documented as of this encounter Procedures + +--------+ + + + | Procedure Name | Priori | Date/Time | Associated Diagnosis | Comments | | | ty | | | | + +--------+ + + + | PROCEDURE NOTE | Routin | 12/16/2016 | | Results for this | | | e | 2:03 PM | | procedure are in the | | | | PDT | | results section. | + +--------+ + + + | I-125 PLAQUE REMOVAL | Electi | 12/16/2016 | Choroid melanoma | | | | ve | 12:54 PM | of right eye (HCC) | | | | Surgic | PDT | | | | | al | | | | + +--------+ + + + | HB OPTHALMIC US | Routin | 12/12/2016 | | Results for this | | B-SCAN | e | 10:07 AM | | procedure are in the | | | | PDT | | results section. | + +--------+ + + + documented in this encounter Results PROCEDURE NOTE (12/16/2016 2:03 PM PDT) + + + | Narrative | Performed At | + + + | Jennifer Hall MD,PhD 12/16/2016 2:03 PM Procedure Date: | | | 12/16/2016 Pre-operative Diagnosis: Choroidal melanoma, right eye | | | Post-operative Diagnosis: Choroidal melanoma, right eye Procedure: | | | Removal of radioactive plaque, right eye Re-attachment of lateral | | | rectus, right eye Surgeon: Jennifer Hall MD,PhD Mother Superior: | | | None Anesthesia: MAC Implant: None EBL: < 5mL Specimens: | | | None Complications: None Drain: None Indication for Surgery: | | | Samina Boyd is a 71 y.o. female with choroidal melanoma | | | recently status post plaque insertion. She now undergoes surgery for | | | planned plaque removal. Surgical Narrative: The patient was | | | brought into the operating theatre and was placed in supine | | | position. After sufficient sedation was given, a 50:50 mix of 2% | | | xylocaine and 0.75% bupivacaine was injected into the retrobulbar | | | space using an Morris needle. The area around the right eye was | | | then prepped and draped in usual sterile manner for ophthalmic | | | surgery. A lid speculum was placed and the operating microscope was | | | brought over the eye. The conjunctival sutures were removed and the | | | plaque was exposed. The nylon sutures were then cut and the plaque | | | was removed. The plaque was inspected and all radioactive seeds were | | | in position in the plaque. The sclera was examined and found to be | | | intact. The lateral rectus was then secured to the insertion site | | | using the pre-placed suture. The conjunctiva was then closed with | | | 7-0 vicryl. Maxitrol ointment, a gauze patch, and a Lin shield were | | | placed over the eye. The patient was moved to the recovery area in | | | satisfactory condition. I certify that the services of which | | | payment is claimed were medically necessary and that no qualified | | | resident was available to perform the services. I further | | | understand that these services are subject to post-payment review by | | | the Medicare carrier. Jennifer Hall MD,PhD | | + + + HB OPTHALMIC US B-SCAN (12/12/2016 10:07 AM PDT) + + + | Narrative | Performed At | + + + | Reina Baker 12/12/2016 10:07 AM B-scan of the right eye for | | | plaque localization during placement 12/12/2016, | | + + + documented in this encounter Visit Diagnoses Not on filedocumented in this encounter Administered Medications + +--------+ +--------+------+------+ | Medication Order | MAR | Action | Dose | Rate | Site | | | Action | Date | | | | + +--------+ +--------+------+------+ | cyclopentolate 1%-PHENYLEPHrine | Given | 12/17/19 | 1 drop | | | | 2.5%-tropicamide 0.25% | | 17 11:53 | | | | | (SUPERDROPS) ophthalmic drops 1 | | AM PDT | | | | | drop 1 drop, Right Eye, EVERY 5 | | | | | | | MINUTES NEEDED, 2 doses, | | | | | | | Starting Mon12/16/16 at 1141, | | | | | | | Until Mon12/16/16 at 1957, | | | | | | | pre-procedure dilation | | | | | | + +--------+ +--------+------+------+ + +---+ | | | + +---+ | fentaNYL (SUBLIMAZE) injection | | | 25 mcg 25 mcg, intravenous, | | | POSTPROCEDURE PRN, 8 doses, | | | Starting Mon12/16/16 at 1314, | | | Until Mon12/16/16 at 1957, severe | | | pain while in Phase I Recovery | | + +---+ | | | + +---+ | HYDROcodone-acetaminophen | | | (NORCO) 5-325 mg tablet 1-2 | | | tablet 1-2 tablet, oral, | | | NEEDED, 1 dose, Starting Fri | | | 12/16/16 at 1346, Until Fri | | | 12/16/16 at 1957, post-op moderate | | | pain | | + +---+ | | | + +---+ + + + +---+---+---+ | lactated Ringers IV 10 mL/hr, | given by | 12/17/19 | | | | | intravenous, CONTINUOUS, Starting | | 17 1:29 | | | | | 12/16/16 at 1215, Until Fri | anesthes | PM PDT | | | | | 12/16/16 at 1957 | iology | | | | | + + + +---+---+---+ +---------+ + + +---+ | New Bag | 12/17/19 | 10 mL/hr | 10 mL/hr | | | | 17 12:01 | | | | | | PM PDT | | | | +---------+ + + +---+ + +---+ | | | + +---+ | lactated Ringers IV 500 mL, | | | intravenous, POSTPROCEDURE PRN, 1 | | | dose, Starting Mon12/16/16 at | | | 1315, Until Mon12/16/16 at 1957, | | | nausea/vomiting due to | | | dehydration | | + +---+ | | | + +---+ | naloxone (NARCAN) injection | | | intravenous, POSTPROCEDURE PRN, | | | Starting Mon12/16/16 at 1314, | | | Until Mon12/16/16 at 1957, | | | hypopnea | | + +---+ | | | + +---+ | ondansetron (ZOFRAN) injection | | | 4 mg 4 mg, intravenous, | | | POSTPROCEDURE PRN, 1 dose, | | | Starting Mon12/16/16 at 1315, | | | Until Mon12/16/16 at 1957, | | | nausea/vomiting, 1st line | | + +---+ | | | + +---+ | oxyCODONE (immediate release) | | | (ROXICODONE) tablet 5-10 mg 5-10 | | | mg, oral, NEEDED, 1 dose, | | | Starting Mon12/16/16 at 1346, | | | Until Mon12/16/16 at 1958, | | | post-op severe pain | | + +---+ | | | + +---+ documented in this encounter
--- OUTSIDE RECORDS SUMMARY | ~2020-01-03 | XMS | Encounter Summary ---
Demographics + + + | Address | [address] | | | [place] [address] | + + + | Home Phone | | + + + | Preferred Language | Unknown | + + + | Marital Status | Single | + + + | Latter-Day Affiliation | NON | + + + [...] Providers + +------+ + | Care Food Assembler Commissary Kitchen Name | Role | Phone | + +------+ + | Tom Sheppard MD | PCP | | + +------+ + Encounter Details +--------+ + + + + | Date | Type | Department | Care Team | Description | +--------+ + + + + | 11/24/ | Document-Sc | Health Information | Unknown . | | | 2017 | anned | Services [address] | | | | | | [address] | | | | | | Mailcode: [id number] | | | | | | [facility] | | | | | | [place], [place] | | | | | | [address] | | | | | | [phone] | | | +--------+ + + + [...] | 2019 | Visit | | MDPhD [address] | | | | | | [address] | | | | | | [place], [place] | | | | | | [address] | | | | | | [phone] | | | | | | | | +--------+---------+ + + + documented as of this encounter Visit Diagnoses Not on filedocumented in this encounter"
--- OUTSIDE RECORDS SUMMARY | ~2020-01-03 | XMS | Encounter Summary ---
Demographics + + + | Address | [address] | | | [place] [address] | + + + | Home Phone [...] Team Providers + +------+ + | Care Parts Designer Name | Role | Phone | + +------+ + | Tom Sheppard MD | PCP | | + +------+ + Encounter Details +--------+ + + + + | Date | Type | Department | Care Team | Description | +--------+ + + + + | 12/14/ | Document-Sc | Health Information | Unknown . | | | 2017 | anned | Services [address] | | | | | | [address] | | | | | | Mailcode: [id number] | | | | | | [facility] | | | | | | [place], [place] | | | | | | [address] | | | | | | [phone] | | | +--------+ + + + [...] | 2019 | Visit | | MDPhD [address] | | | | | | [address] | | | | | | [place], [place] | | | | | | [address] | | | | | | [phone] | | | | | | | | +--------+---------+ + + + documented as of this encounter Visit Diagnoses Not on filedocumented in this encounter"
--- OUTSIDE RECORDS SUMMARY | ~2020-01-03 | XMS | Encounter Summary ---
Demographics + + + | Address | [address] | | | [place] [address] | + + + | Home Phone | | + + + | Preferred Language | Unknown | + + + | Marital Status | Single | + + + | Mormonism Affiliation | NON | + + + | Race | White | + + + | Ethnic Group | Not or | + + + Author + + + | Author | [facility] | + + + | Organization | [facility] | + + + | Address | Unknown | + + + | Phone | Unavailable | + + + Support + + +---------+ + | Name | Relationship | Address | Phone | + + +---------+ + | Sheron Rivera | ECON | Unknown | | + + +---------+ + Care Team Providers + +------+ + | Care Manager Case Name | Role | Phone | + +------+ + | Tom Sheppard MD | PCP | | + +------+ + Encounter Details +--------+ + + + + | Date | Type | Department | Care Team | Description | +--------+ + + + + | 07/19/ | Documentati | Dermatology | Unknown . | | | 2016 | on | Medical at [facility] [address] | | | | | | [address] [facility] | | | | | | for Health and | | | | | | Healing, [address], | | | | | | [address]th Floor | | | | | | [place], [place] | | | | | | [address] | | | | | | [phone] | | | +--------+ + + + [...] | 2020 | Visit | | ,PhD [address] | | | | | | [address] | | | | | | [place] | | | | | | [address] | | | | | | [phone] | | | | | | | | +--------+---------+ + + + documented as of this encounter Visit Diagnoses Not on filedocumented in this encounter"
--- OUTSIDE RECORDS SUMMARY | ~2020-01-03 | XMS | Encounter Summary ---
Demographics + + + | Address | [address] | | | [place] [address] | + + + | Home Phone | | + + + | Preferred Language | Unknown | + + + | Marital Status | Single | + + + | Anabaptist Affiliation | NON | + + + | Race | White | + + + | Ethnic Group | Not or | + + + Author + + + | Author | [facility] | + + + | Organization | [facility] | + + + | Address | Unknown | + + + | Phone | Unavailable | + + + Support + + +---------+ + | Name | Relationship | Address | Phone | + + +---------+ + | Sheron Rivera | ECON | Unknown | | + + +---------+ + Care Team Providers + +------+ + | Care Bareback Rider Name | Role | Phone | + +------+ + | Tom Sheppard MD | PCP | | + +------+ + Encounter Details +--------+ + + + + | Date | Type | Department | Care Team | Description | +--------+ + + + + | 12/16/ | Procedure | [facility] LOC | | | | 2017 | Pass | [address] [facility] | | | | | | [facility] | | | | | | [place] [address] | | | +--------+ + + + [...] | 2019 | Visit | | MDPhD [address] | | | | | | [address] | | | | | | [place], [place] | | | | | | [address] | | | | | | [phone] | | | | | | | | +--------+---------+ + + + documented as of this encounter Visit Diagnoses Not on filedocumented in this encounter"
--- OUTSIDE RECORDS SUMMARY | ~2020-01-03 | XMS | Encounter Summary ---
Demographics + + + | Address | [address] | | | [place] [address] | + + + | Home Phone | | + + + | Preferred Language | Unknown | + + + | Marital Status | Single | + + + | Adventist Affiliation | NON | + + + | Race | White | + + + | Ethnic Group | Not or | + + + Author + + + | Organization | Unknown | + + + | Address | Unknown | + + + | Phone | Unavailable | + + + Support + + +---------+ + | Name | Relationship | Address | Phone | + + +---------+ + | Sheron Rivera | ECON | Unknown | | + + +---------+ + Care Team Providers + +------+ + | Care Manager Car Name | Role | Phone | + +------+ + | Tom Sheppard MD | PCP | | + +------+ + Encounter Details +--------+--------+ + + + | Date | Type | Department | Care Team | Description | +--------+--------+ + + + | 02/27/ | Travel | | | | | 2019 | | | | | +--------+--------+ + + + Social History + +-------+ [...] | 2020 | Visit | | ,PhD [address] | | | | | | [address] | | | | | | [place] | | | | | | [address] | | | | | | [phone] | | | | | | | | +--------+---------+ + + + documented as of this encounter Visit Diagnoses Not on filedocumented in this encounter"
--- OUTSIDE RECORDS SUMMARY | ~2020-01-03 | XMS | Encounter Summary ---
Demographics + + + | Address | [address] | | | [place] [address] | + + + | Home Phone | | + + + | Preferred Language | Unknown | + + + | Marital Status | Single | + + + | Quaker Affiliation | NON | + + + | Race | White | + + + | Ethnic Group | Not or | + + + Author + + + | Author | [facility] [place] [facility] | + + + | Organization | [facility] [place] [facility] | + + + | Address | Unknown | + + + | Phone | Unavailable | + + + Support + + +---------+ + | Name | Relationship | Address | Phone | + + +---------+ + | Sheron Rivera | ECON | Unknown | | + + +---------+ + Care Team Providers + +------+ + | Care Gearman Name | Role | Phone | + +------+ + PCP | Unavailable | + +------+ + Encounter Details +--------+ + + + + | Date | Type | Department | Care Team | Description | +--------+ + + + + | 02/09/ | Hospital | Dermatopathology | | | | 2016 | Encounter | [address] | | | | | | Mailcode: [id number] | | | | | | [facility] | | | | | | and Healing, | | | | | | [address], [facility] | | | | | | [place], [place] | | | | | | [address] | | | | | | [phone] | | | +--------+ + + + [...] | 2019 | Visit | | MDPhD [address] | | | | | | [address] | | | | | | [place], [place] | | | | | | [address] | | | | | | [phone] | | | | | | | | +--------+---------+ + + + documented as of this encounter Procedures + +--------+ + + + | Procedure Name | Priori | Date/Time | Associated Diagnosis | Comments | | | ty | | | | + +--------+ + + + | DERM PATHOLOGY | Routin | 02/10/2016 | Melanoma in situ | Results for this | | | e | | of left upper | procedure are in the | | | | | extremity including | results section. | | | | | shoulder (HCC) | | + +--------+ + + + documented in this encounter Results DERM PATHOLOGY (02/10/2016) + + + + + + | Component | Value | Ref Range | Performed | Pathologist | | | | | At | Signature | + + + + + + | DERMATOPATH | SOURCE OF SPECIMEN:A Lt. | | [facility] | | | OLOGY(WET | upper arm, shave biopsy | | DERMATOPATH | | | MNT) | CLINICAL | | OLOGY | | | | DESCRIPTION:15 x 8 mm | | | | | | hyperpigmented macule; | | | | | | r/o nevus melanocytic vs | | | | | | other. GROSS | | | | | | [...] | | | | | irregular shave ofpatchy | | | | | | afgum-ali-whpkx skin, | | | | | | [id number]. The surgical | | | | | | margin is inked | | | | | | black;the tissue is | | | | | | bisected, and entirely | | | | | | submitted in cassette | | | | | | A1. MICROSCOPIC | | | | | | DESCRIPTION:There is an | | | | | | asymmetric, | | | | | | predominantly junctional | | | | | | melanocytic | | | | | | neoplasmcharacterized by | | | | | | nests and single | | | | | | melanocytes distributed | | | | | | irregularly alongand | | | | | | above the basal layer, | | | | | | with areas of confluence | | | | | | and extension | | | | | | alongadnexal epithelium. | | | | | | Most of the melanocytic | | | | | | nuclei are round to | | | | | | oval, someare | | | | | | hyperchromatic, others | | | | | | pleomorphic, and most of | | | | | | the cells contain | | | | | | palestaining cytoplasm, | | | | | | some with melanin. | | | | | | DIAGNOSIS:MELANOMA | | | | | | IN-SITU, LEFT UPPER ARM. | | | | | | NOTE: Focal | | | | | | melanocytes with the | | | | | | appearance of being in | | | | | | the superficialpapillary | | | | | | dermis are favored as | | | | | | representing in situ | | | | | | involvement | | | | | | withconnection to the | | | | | | lentiginous and adnexal | | | | | | epithelium out of the | | | | | | plane ofsection. | | | | | | Melanoma in situ is | | | | | | present at both | | | | | | peripheral biopsy | | | | | | margins, andan excision | | | | | | which assures complete | | | | | | removal is recommended. 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
--- OUTSIDE RECORDS SUMMARY | ~2020-01-03 | XMS | Encounter Summary ---
Demographics + + + | Address | [address] | | | [place] [address] | + + + | Home Phone | | + + + | Preferred Language | Unknown | + + + | Marital Status | | + + + | Scientologist Affiliation | Unknown | + + + | Race | White | + + + | Ethnic Group | Not or | + + + Author + + + | Author | [facility] | | | and [place] | + + + | Organization | [facility] | | | and [place] | + + + | Address | Unknown | + + + | Phone | Unavailable | + + + Support + + +---------+ + | Name | Relationship | Address | Phone | + + +---------+ + | Sheron uBcio | ECON | Unknown | | + + +---------+ + Care Team Providers + +------+ + | Care Commercial Instructor Supervisor Name | Role | Phone | + +------+ + | Tom Sheppard MD | PCP | | + +------+ + Encounter Details +--------+---------+ + + + | Date | Type | Department | Care Team | Description | +--------+---------+ + + + | 02/24/ | Surgery | [facility] | Jamaal Bui MD | COLONOSCOPY | | 2013 | | [facility] | [address], [place] | | | | | [address] | [address] | | | | | [place] | [address] | | | | | [address] | | | | | | [phone] | | | +--------+---------+ + + + [...] + + + | Blood Pressure | 114/64 | 02/24/2014 11:30 AM | | | | | PST | | + + + + + | Pulse | 64 | 02/24/2014 11:30 AM | | | | | PST | | + + + + + | Temperature | 36.6 C (97.9 F) | 02/24/2014 9:00 AM | | | | | PST | | + + + + + | Respiratory Rate | 16 | 02/24/2014 11:30 AM | | | | | PST | | + + + + + | Oxygen Saturation | 99% | 02/24/2014 11:30 AM | | | | | PST | | + + + + + | Inhaled Oxygen | - | - | | | Concentration | | | | + + + + + | Weight | 74.8 kg (165 lb) | 02/24/2014 9:00 AM | | | | | PST | | + + + + + | Height | 172.7 cm (5' 8") | 02/24/2014 9:00 AM | | | | | PST | | + + + + + | Body Mass Index | 25.09 | 02/24/2014 9:00 AM | | | | | PST | | + + + + + documented in this encounter Discharge Instructions Instructions Stephanie Tavarez RN - 02/24/2014Formatting of this note might be diffe rent from the original. Colorectal Cancer Screening Colorectal cancer (cancer in the colon or rectum) is aleading cause of cancer deaths in [facility]. But it doesn t have to be. When this cancer is found and removed early, the chances of a full recovery are very good. Because colorectal cancer rarely causes sympto ms in its early stages, screening for the disease is important. It s even more crucial if you have risk factors for the disease. Learn more about colorectal cancer and its risk facto rs. Then talk to your doctor about being screened. You could be saving your own life. Risk Factors for Colorectal Cancer Your risk of having colorectal cancer increases if you: Are 50 years of age or older Have a family history or personal history of colorectal cancer orpolyps Have a personal history of type 2 diabetes, Crohn s disease, or ulcerative colitis Have an inherited genetic syndrome like Bills syndrome (also known as HNPCC) or familial adenomatous polyposis Are very overweight Smoke Drink a lot of alcohol Eat a lot of red or processed meat The Colon and Rectum A DALE can detect a growth in the rectum or anus. Waste from food you eat enters the colon from the small intestine. As it travels through th e colon, the waste (stool) loses water and becomes more solid. Intestinal muscles push it to macdonald the sigmoid the last section of the colon. Stool then moves into the rectum, where it s stored until it s ready to leave the body during a bowel movement. How Cancer Develops Polyps are growths that form on the inner lining of the colon or rectum. Most are benign, w hich means they aren t cancerous. But over time, some polyps can become malignant (cancero us). This occurs when cells in these polyps begin growing abnormally. In time, malignant mattie ls invade more and more of the colon and rectum. The cancer may also spread to nearby organs or lymph nodes or to other parts of the body. Finding and removing polyps can help prevent cancer from ever forming. Your Screening Screening means looking for a medical problem before you have symptoms. During screening fo r colorectal cancer, your doctor will ask about your medical history, examine you, and do on e or more tests. History and Exam Medical history. Your doctor will ask about your medical history. Mention if a family me mber has had colon cancer or polyps. Also mention any health problems you have had in the ga st. Digital rectal exam (DALE). During a DALE, the doctor inserts a lubricated gloved finger i nto the rectum. The test is painless and takes less than a minute. Doctors agree that this t est alone is not enough to screen for colorectal cancer. Screening Test Options Fecal occult blood test or fecal immunochemical test These tests check for occult blood in stool (blood you can t see). Hidden blood may be a sign of colon polyps or cancer. A small sample of stool is tested for blood in a laboratory. Most often, you collect this sample at home using a kit your doctor gives you. Follow the i nstructions carefully for using this kit. You might need to avoid certain foods and medicati ons before the test, as directed. Barium enema with contrast This test uses X-rays to provide images of the entire colon and rectum. The day before this test, you will need to do a bowel prep to clean out the colon and rectum. A bowel prep is a liquid diet plus strong laxatives or enemas. You will be awake for the test, but you may be given medication to help you relax. At the start of the test, a radiologist (a doctor who s pecializes in imaging tests) places a soft tube into the rectum. The tube is used to fill th e colon with a contrast liquid (barium) and air. This can be uncomfortable for some people. The liquid helps the colon show up clearly on the X-rays. Because the test uses X-rays, it e xposes you to a small amount of radiation. Virtual colonoscopy This exam is also called a CT colonography. Ituses a series of X-ray photographs to creat e a 3-D view of the colon and rectum. The day before the test, you will need to do a bowel p rep to clean out your colon. Your health care provider will give you instructions on how to do this. During the procedure, you will lie on a table that is part of a special X-ray machi ne called a CT machine. A small tube will be placed into your rectum to fill the colon and r ectum with air. This can be uncomfortable for some people. Then, the table will move into th e machine and photos will be taken of your colon and rectum. A computer will combine these p hotos to create a 3-D picture. Because the test uses X-rays, it exposes you to a small amoun t of radiation. Scope exams Colonoscopy.This is the best test doctors have for finding and removing colorectal liliana yps. The day before the test, you will do a bowel prep. This is a liquid diet plus a strong laxative solution or an enema. The bowel prep willcleanse your colon. You will be given in structions for this. Just before the test, you are given a medication to make you sleepy. Th en, a long, flexible, lighted tube called a colonoscope is gently inserted into the rectum a nd guided through the entire colon. Images of the colon are viewed on a video screen. Any po lyps that are found are removed and sent to a lab for testing. If a polyp can t be removed , a sample of tissue is taken and the polyp might be removed later during surgery. Sigmoidoscopy.This test is similar to colonoscopy, but focuses only on the sigmoid col on and rectum. As with colonoscopy, bowel prep must be done the day before this test. It delma ht not need to be as complete as the bowel prep for a colonoscopy. You are awake during the procedure, but you may be given medication to help you relax. During the test, the doctor ozzie woodss a thin, flexible, lighted tube called a sigmoidoscope through your rectum and lower col on. The images are displayed on a video screen. Polyps are removed, if possible, and sent to a lab for testing. Colonoscopy is the only screening test that lets your doctor see the entire colon and rectu m. This test also lets your doctor remove any pieces of tissue that need to be looked at by a lab. If something suspicious is found using any of these other tests, you will likely need a colonoscopy. When to Call Your Doctor After a Test Call your doctor if you have any of the following after any screening test: Bleeding Fever over 101F (38.8C) Abdominal pain [id number] [place] [address]. All rights reserve d. This information is not intended as a substitute for professional medical care. Always fo llow your healthcare professional's instructions. documented in this encounter Medications at Time [...] +---------+--------+ + documented as of this encounter H&P Notes Jamaal Bui MD - 02/24/2014 10:25 AM PSTThe patient has had no prior screening exam. S he denies any gastrointestinal tract symptoms. Patient has no questions consent form is sig jeanette. Pulse is 74 O2 sat 99% on pressure 141/67 we'll proceed with colonoscopy for colon can cer screen arJamaal lane MD - 02/21/2014 11:03 AM PDT PRE-ENDOSCOPY HISTORY AND PRE-SEDATION ASSESSMENT PATIENT NAME: Samina Boyd : 1945 TODAY'S DATE: 02/24/2014 PLANNED PROCEDURE: colonoscopy patient seen and examined the date of the procedure patient denies any change in bowel pattern or any blood in the stools family history is negative for colon cancer polyps. She has no history of breast or or uterine cancer PERTINENT HISTORY/INDICATION FOR PROCEDURE: Samina Boyd is a 68 y.o. female who is undergoing colonoscopy for colon cancer screening. PAST HISTORY: Past Medical History Diagnosis Date Pure hypercholesterolemia Essential hypertension, benign Unspecified hypothyroidism Unspecified vitamin D deficiency Chronic fatigue syndrome Disturbance of skin sensation Primary localized osteoarthrosis, lower leg PAST SURGICAL HISTORY Past Surgical History Procedure Date Tonsillectomy and adenoidectomy Knee arthroscopy right, meniscus lateral HOME MEDS: Prior to Admission medications Medication Sig Taking? amLODIPine (NORVASC) 2.5 mg tablet Take 2.5 mg by mouth Daily. Cholecalciferol (VITAMIN D3) 400 UNITS CAPS Take 1 capsule by mouth Daily. GLUCOSAMINE CHONDROITIN COMPLX PO Take 2 tablets by mouth Daily. 750mg-600mg respectivley hydrochlorothiazide 25 mg tablet Take 12.5 mg by mouth Daily. MULTIPLE VITAMIN PO Take by mouth. naproxen sodium (ALEVE) 220 MG tablet Take 440 mg by mouth as needed. sodium sulfate-potassium sulfate-magnesium sulfate (SUPREP BOWEL PREP) oral solution Take 1 77 mLs by mouth See Admin Instructions. Take one kit, first dose at 4pm feb.2, second dose a t 8pm feb.2 ALLERGIES Allergies Allergen Reactions Oyster Extract Anaphylaxis ASA CLASSIFICATION2 EXAMINATION: Blood pressure 131/66, pulse 67, temperature 36.6 C (97.9 F), temperature source Tempor al, resp. rate 18, height 1.727 m (5' 8"), weight 74.844 kg (165 lb), SpO2 98.00%, not curre ntly . General: Alert and orientedx3 Throat: Normal Lungs: Clear Heart: Regular rate and rhythm with out significant murmur Abdomen: flat, normal bowel sounds. Soft, nontender 1. Available medical records have been reviewed. Dr. Sheppard September 29 2013, 04 01 2013 2. Medication list reviewed. IMPRESSION: Colon cancer screening via colonoscopy Patient appropriate for procedure. PLAN: 1. Proceed with procedure as stated above with moderate sedation/analgesia 2. Procedure, indications, risks and alternatives explained to patient/family and they agre ed to proceed and consent was signed. 3. Patient will be reevaluated immediately (1-2 minutes) before sedation administration and approved for the plan as stated above. Electronically Signed by: Jamaal Bui MD 02/24/2014 [facility] Portions of this chart may have been created with [employer] voice recognition software. Occasi onal wrong-word or sound-alike substitutions may have occurred due to the inherent parr itations of voice recognition software. Please read the chart carefully and recognize, using context, where these substitutions have occurred documented in this en counter Procedure Notes ONBASE SCAN [facility] - 02/24/2014 12:00 AM PSTAssociated Order(s): COLONOSCOPYElectronically si gned by Daniela Gilliam at 02/24/2014 10:59 AM PSTdocumented in this encounter Miscellaneous Notes Plan of Care - ONBASE SCAN [facility] - 02/25/2014 12:00 AM PST lan of Care - ONBASE SCAN [facility] - 02/25/2014 12:00 AM PSTElect ronically signed by Daniela Gilliam at 02/25/2014 3:44 PM PSTMiscellaneous - ONBANNER SCAN [facility] - 02/25/2014 12:00 AM PST is cellaneous - ONBASE SCAN [facility] - 02/16/2014 12:00 AM PDT documented in this encounter Plan of Treatment Not on filedocumented as of this encounter Procedures + +--------+ + + + | Procedure Name | Priori | Date/Time | Associated Diagnosis | Comments | | | ty | | | | + +--------+ + + + | COLONOSCOPY | | 02/24/2014 | Special screening | | | | | 10:25 AM | for malignant | | | | | PST | neoplasms, colon | | + +--------+ + + + | COLONOSCOPY | Routin | 02/24/2014 | | Results for this | | | e | 10:20 AM | | procedure are in the | | | | PST | | results section. | + +--------+ + + + documented in this encounter Results COLONOSCOPY (02/24/2014 10:20 AM PST) + + | Specimen | + + | | + + + + -+ | Narrative | Performed At | + + -+ | | [facility] | | GastroenterologyPatient Name: Samina Riddhi Date: 02/24/2014 | [facility] | | 10:20 AMMRN: [id number] #: [id number] of : | | | 5Admit Type: AmbulatoryAge: 68Room: [facility] 01Gender: FemaleNote | | | Status: FinalizedAttending MD: Jamaal Bui MDProcedure: | | | ColonoscopyIndications: Screening for colorectal malignant | | | neoplasmProviders: Jamaal Bui MD, Radha | | | DEVI Catalan, Urvashi Smith, | | | TechnicianReferring MD: Tom Sheppard MD (Referring | | | MD)Medicines: Midazolam 4 mg IV, Meperidine 100 mg IV, | | | Oxygen 4 liters/min | | | nasocannulaComplications: No immediate complications. Estimated | | | blood loss: None.Procedure: Pre-Anesthesia Assessment: - | | | Prior to the procedure, a History and Physical was performed, and | | | patient medications, allergies and sensitivities were reviewed. The | | | patient's tolerance of previous anesthesia was reviewed. | | | - Prior to the procedure, a History and Physical was performed, and | | | patient medications and allergies were reviewed. The patient is | | | competent. The risks and benefits of the procedure and the | | | sedation options and risks were discussed with the patient. All | | | questions were answered and informed consent was obtained. | | | Patient identification and proposed procedure were verified by | | | the physician, the nurse and the fill technician in the endoscopy | | | suite. Mental Status Examination: normal. Airway Examination: | | | normal oropharyngeal airway and neck mobility and Mallampati | | | Class II (the uvula but not tonsillar pillars visualized). | | | Respiratory Examination: clear to auscultation. CV Examination: | | | normal. Prophylactic Antibiotics: The patient does not require | | | prophylactic antibiotics. Prior Anticoagulants: The patient has | | | taken no previous anticoagulant or antiplatelet agents. ASA | | | Grade Assessment: II - A patient with mild systemic disease. | | | After reviewing the risks and benefits, the patient was deemed | | | in satisfactory condition to undergo the procedure. The | | | anesthesia plan was to use moderate sedation / analgesia | | | (conscious sedation). Immediately prior to administration of | | | medications, the patient was re-assessed for adequacy to receive | | | sedatives. The heart rate, respiratory rate, oxygen saturations, | | | blood pressure, adequacy of pulmonary ventilation, and response | | | to care were monitored throughout the procedure. The physical | | | status of the patient was re-assessed after the procedure. | | | - After reviewing the risks and benefits, the patient was deemed in | | | satisfactory condition to undergo the procedure. - | | | Immediately prior to administration of medications, the patient was | | | re-assessed for adequacy to receive sedatives. - The heart | | | rate, respiratory rate, oxygen saturations, blood pressure, | | | adequacy of pulmonary ventilation, and response to care were monitored | | | throughout the procedure. - The physical status of the | | | patient was re-assessed after the procedure. After I obtained | | | informed consent, the scope was passed under direct vision. | | | Throughout the procedure, the patient's blood pressure, pulse, | | | and oxygen saturations were monitored continuously. The endoscope was | | | introduced through the anus and advanced to the cecum, | | | identified by the appendiceal orifice, ileocecal valve and | | | palpation. The colonoscopy was technically difficult and | | | complex due to multiple diverticula in the colon, restricted | | | mobility of the colon and a tortuous colon. Successful | | | completion of the procedure was aided by using manual pressure, | | | straightening and shortening the scope to obtain bowel loop reduction | | | and using scope torsion. The patient tolerated the procedure | | | well. The quality of the bowel preparation was good.Findings: | | | The perianal and digital rectal examinations were normal. | | | Pertinent negatives include normal sphincter tone and no | | | palpable rectal lesions. Multiple small and large-mouthed | | | diverticula were found in the sigmoid colon. There was | | | narrowing of the colon in association with the diverticular | | | opening. There was evidence of diverticular spasm. | | | Kaylene-diverticular erythema was seen. There was no evidence of | | | diverticular bleeding. The hepatic flexure was moderately | | | tortuous. The exam was otherwise without abnormality. The | | | retroflexed view of the distal rectum and anal verge was normal and | | | showed no anal or rectal abnormalities.Impression: - | | | Severe diverticulosis in the sigmoid colon. There was narrowing of the | | | colon in association with the diverticular opening. There was | | | evidence of diverticular spasm. Kaylene-diverticular erythema was | | | seen. There was no evidence of diverticular bleeding. - | | | Tortuous colon. [All Maneuvers]. - The examination was otherwise | | | normal. - The distal rectum and anal verge are normal on | | | retroflexion view.Recommendation: - Discharge patient to home | | | (ambulatory). - Mechanical soft diet today. - Repeat | | | colonoscopy in 10 years for screening purposes. - Return to | | | primary care physician as previously scheduled.Jamaal Bui | | | 02/24/2014 10:56 AMThis report has been signed electronically.Number | | | of Addenda: 0Note Initiated On: 02/24/2014 10:20 AMScope Withdrawal | | | Time: 0 hours 8 minutes 47 seconds Total Procedure Duration: 0 hours | | | 18 minutes 48 seconds Scope In: 10:32:42 AMScope Out: 10:51:30 AM | | | [facility], [address] [place] [address], | | | [place] [address] | | | - Discharge patient to home (ambulatory). | | | - Mechanical soft diet today. | | | - Repeat colonoscopy in 10 years for screening purposes. | | | - Return to primary care physician as previously scheduled. | | |Jamaal Bui MD | | |02/24/2014 10:56 AM | | |This report has been signed electronically. | | |Number of Addenda: 0 | | |Note Initiated On: 02/24/2014 10:20 AM | | |Scope Withdrawal Time: 0 hours 8 minutes 47 seconds | | |Total Procedure Duration: 0 hours 18 minutes 48 seconds | | |Scope In: 10:32:42 AM | | |Scope Out: 10:51:30 AM | | | [facility], [facility] [address] [facility], [place] | | | [address] | | + + -+ + + | Transcriptions | + + | Daniela Gilliam - 02/24/2014 12:00 AM PST | + + + +---------+ + + | Performing | Address | City/State/Zipcode | Phone Number | | Organization | | | | + +---------+ + + | [facility] | | | | + +---------+ + + documented in this encounter Visit Diagnoses + + | Diagnosis | + + | Special screening for malignant neoplasms, colon | + + documented in this encounter Administered Medications + +---------+ +------+-------+------+ | Medication Order | MAR | Action | Dose | Rate | Site | | | Action | Date | | | | + +---------+ +------+-------+------+ | lactated ringers (LR) infusion | New Bag | 02/25/20 | | 100 | | | at 100 mL/hr, Intravenous, | | 14 10:05 | | mL/hr | | | CONTINUOUS, Starting 02/24/14 | | AM PST | | | | | at 1015, Pre-op | | | | | | + +---------+ +------+-------+------+ +---+---+ | | | +---+---+ + +-------+ +--------+---+---+ | meperidine (DEMEROL) 100 mg/mL | Given | 02/25/20 | 100 mg | | | | injection PRN, Pain, Starting | | 14 10:29 | | | | | 02/24/14 at 1029 | | AM PST | | | | + +-------+ +--------+---+---+ +---+---+ | | | +---+---+ + +-------+ +------+---+---+ | midazolam (VERSED) 5 mg/mL | Given | 02/25/20 | 1 mg | | | | injection PRN, Anxiety, Starting | | 14 10:38 | | | | | 02/24/14 at 1031 | | AM PST | | | | + +-------+ +------+---+---+ +-------+ +------+---+---+ | Given | 02/25/20 | 1 mg | | | | | 14 10:34 | | | | | | AM PST | | | | +-------+ +------+---+---+ | Given | 02/25/20 | 1 mg | | | | | 14 10:31 | | | | | | AM PST | | | | +-------+ +------+---+---+ +---+---+ | | | +---+---+ documented in this encounter
--- OUTSIDE RECORDS SUMMARY | ~2020-01-03 | XMS | Encounter Summary ---
Demographics + + + | Address | [address] | | | [place] [address] | + + + | Home Phone | | + + + | Preferred Language | Unknown | + + + | Marital Status | | + + + | Presybeterian Affiliation | Unknown | + + + | Race | White | + + + | Ethnic Group | Not or | + + + Author + + + | Author | [facility] | | | and [place] | + + + | Organization | [facility] | | | and [...] Team Providers + +------+ + | Care Combine Inspector Name | Role | Phone | + +------+ + | Tom Sheppard MD | PCP | | + +------+ + Encounter Details +--------+ + + + + | Date | Type | Department | Care Team | Description | +--------+ + + + + | 02/24/ | [facility] | [facility] | Jamaal Bui MD | Special screening | | 2013 | Encounter | MED CTR [facility] INTRA OP | [address] [place] | for malignant | | | | [address] | [address] [place], [place] | neoplasms, colon | | | | [place], [place] | [address] | (Primary Dx) | | | | [address] | | | | | | [phone] | | | +--------+ + + + [...] is aleading cause of cancer deaths in [facility]. But it doesn t have to be. [...] health problems you have had in the pa st. Digital rectal exam (DALE). During a [...] you relax. During the test, the doctor gu ides a thin, flexible, lighted tube called a [...] Bleeding Fever over 101F (38.8C) Abdominal pain [id number] [place] [address]. All rights reserve d. This information is [...] with colonoscopy for colon can cer screen arriJamaal MD - 02/21/2014 11:03 AM PDT PRE-ENDOSCOPY [...] Take one kit, first dose at 4pm nov.2, second dose a t 8pm nov.2 ALLERGIES Allergies Allergen Reactions Oyster Extract Anaphylaxis [...] Signed by: Jamaal Bui MD 02/24/2014 [facility] Portions of this chart may have been created with Pronutria voice recognition software. Occasi onal wrong-word or sound-alike substitutions may have occurred due to the inherent parr itations of voice recognition software. Please read the chart carefully and recognize, using context, where these substitutions have occurred documented in this en counter Procedure Notes ONBASE SCAN [facility] - 02/24/2014 12:00 AM PSTAssociated Order(s): COLONOSCOPYElectronically si gned by delvis [facility] at 02/24/2014 10:59 AM PSTdocumented in this encounter Miscellaneous Notes Plan of Care - ONBASE SCAN [facility] - 02/25/2014 12:00 AM PST lan of Care - ONBASE SCAN [facility] - 02/25/2014 12:00 AM PSTElect ronically signed by delvis [facility] at 02/25/2014 3:44 PM PSTMiscellaneous - ONBASE SCAN [facility] - 02/25/2014 12:00 AM PST is cellaneous - ONBASE SCAN [facility] - 02/16/2014 12:00 AM PDT documented in [...] | [facility] | | GastroenterologyPatient Name: Samina RiggsnProcedure Date: 02/24/2014 | [facility] | | 10:20 AMMRN: [id number] #: [id number] of : | | | 1946Admit Type: AmbulatoryAge: 68[facility]: [facility] 01Gender: FemaleNote | | | Status: FinalizedAttending MD: Jamaal Bui [facility]: | | | ColonoscopyIndications: Screening for colorectal malignant | | | neoplasmProviders: Jamaal Bui MD, Lorlyn | | | DEVI Catalan, Urvashi Smith, [...] | the physician, the nurse and the farm technician in the endoscopy | | | [...] AMScope Out: 10:51:30 AM | | | [facility], [address] [place] [address], | | | [place] [address] | | | - Discharge patient to [...] |Scope Out: 10:51:30 AM | | | [facility], [facility] [address] [facility], [place] | | | [address] | | + + -+ + + [...] | Special screening for malignant neoplasms, colon - Primary | + + documented in this encounter [...]
--- OUTSIDE RECORDS SUMMARY | ~2020-01-03 | XMS | Encounter Summary ---
Demographics + + + | Address | [address] | | | [place] [address] | + + + | Home Phone | | + + + | Preferred Language | Unknown | + + + | Marital Status | Single | + + + | Druze Affiliation | NON | + + + | Race | White | + + + | Ethnic Group | Not or | + + + Author + + + | Author | [facility] | + + + | Organization | [facility] | + + + | Address | Unknown | + + + | Phone | Unavailable | + + + Support + + +---------+ + | Name | Relationship | Address | Phone | + + +---------+ + | Sheron Rivera | ECON | Unknown | | + + +---------+ + Care Team Providers + +------+ + | Care Wind Turbine Performance Engineer Name | Role | Phone | + +------+ + | Tom Sheppard MD | PCP | | + +------+ + Encounter Details +--------+ + + + + | Date | Type | Department | Care Team | Description | +--------+ + + + + | 06/30/ | Document-Sc | Health Information | Unknown . | | | 2018 | anned | Services [address] | | | | | | [address] | | | | | | Mailcode: [id number] | | | | | | [facility] | | | | | | [place], [place] | | | | | | [address] | | | | | | [phone] | | | +--------+ + + + [...] | 2019 | Visit | | MDPh[address] | | | | | | [address] | | | | | | [place], [place] | | | | | | [address] | | | | | | [phone] | | | | | | | | +--------+---------+ + + + documented as of this encounter Visit Diagnoses Not on filedocumented in this encounter"
--- OUTSIDE RECORDS SUMMARY | ~2020-01-03 | XMS | Encounter Summary ---
Demographics + + + | Address | [address] | | | [place] [address] | + + + | Home Phone | | + + + | Preferred Language | Unknown | + + + | Marital Status | Single | + + + | Yazdanism Affiliation | NON | + + + [...] Team Providers + +------+ + | Care Interface Control Officer Name | Role | Phone | + +------+ + | Tom Sheppard MD | PCP | | + +------+ + Encounter Details +--------+ + + + + | Date | Type | Department | Care Team | Description | +--------+ + + + + | 12/12/ | Pharmacy | [facility] | | | | 2016 | Visit | [address] [place] [address] | | | | | | [place] [address] | | | | | | [phone] | | | +--------+ + + + [...] | 2019 | Visit | | ,[address] | | | | | | [address] | | | | | | [place], [place] | | | | | | [address] | | | | | | [phone] | | | | | | | | +--------+---------+ + + + documented as of this encounter Visit Diagnoses Not on filedocumented in this encounter"
--- OUTSIDE RECORDS SUMMARY | ~2020-01-03 | XMS | Encounter Summary ---
Demographics + + + | Address | [address] | | | [place] [address] | + + + | Home Phone | | + + + | Preferred Language | Unknown | + + + | Marital Status | Single | + + + | Nondenominational Affiliation | NON | + + + | Race | White | + + + | Ethnic Group | Not or | + + + Author + + + | Author | [facility] | + + + | Organization | [facility] | + + + | Address | Unknown | + + + | Phone | Unavailable | + + + Support + + +---------+ + | Name | Relationship | Address | Phone | + + +---------+ + | Sheron Rivera | ECON | Unknown | | + + +---------+ + Care Team Providers + +------+ + | Care Content Developer Name | Role | Phone | + +------+ + | Tom Sheppard MD | PCP | | + +------+ + Encounter Details +--------+ + + + + | Date | Type | Department | Care Team | Description | +--------+ + + + + | 11/16/ | Documentati | Dermatology | Tom Sheppard, | | | 2017 | on | Medical at [facility] [address] | MD [address] | | | | | [address] [facility] | Internal Medicine | | | | | for Health and | [address] | | | | | [facility], [address], | [place] [address] | | | | | 16th Floor | [phone] | | | | | [place], [place] | | | | | | [address] | | | | | | [phone] | | | +--------+ + + + [...] | 2019 | Visit | | [address]Ph[address] | | | | | | [address] | | | | | | [place], [place] | | | | | | [address] | | | | | | [phone] | | | | | | | | +--------+---------+ + + + documented as of this encounter Visit Diagnoses Not on filedocumented in this encounter"
--- OUTSIDE RECORDS SUMMARY | ~2020-01-03 | XMS | Encounter Summary ---
Demographics + + + | Address | [address] | | | [place] [address] | + + + | Home Phone | | + + + | Preferred Language | Unknown | + + + | Marital Status | Single | + + + | Mu-Ism Affiliation | NON | + + + | Race | White | + + + | Ethnic Group | Not or | + + + Author + + + | Author | [facility] | + + + | Organization | [facility] | + + + | Address | Unknown | + + + | Phone | Unavailable | + + + Support + + +---------+ + | Name | Relationship | Address | Phone | + + +---------+ + | Sheron Rivera | ECON | Unknown | | + + +---------+ + Care Team Providers + +------+ + | Care Multifocal Button Generator Name | Role | Phone | + +------+ + | Tom Sheppard MD | PCP | | + +------+ + Reason for Visit + + + | Reason | Comments | + + + | Consultation | | + + + Consultation (Routine) +--------+--------+ + + + + | Status | Reason | Specialty | Diagnoses / | Referred By | Referred To | | | | | Procedures | Contact | Contact | +--------+--------+ + + + + | Closed | | Radiation | Diagnoses | Rafael | Kale, | | | | Oncology | Malignant | Jennifer Stephenson, | MD Hay | | | | | neoplasm of | ,PhD [address] | [address] | | | | | right | [address] | [address] | | | | | choroid | [address] | [address] [place], | | | | | Procedures | [address] | [place] | | | | | CONSULT TO | [place], [place] | [address] | | | | | RADIATION | [address] | Phone: | | | | | ONCOLOGY | Phone: | [phone] | | | | | | [phone] | Fax: | | | | | | Fax: | [phone] | | | | | | [phone] | | +--------+--------+ + + + + Encounter Details +--------+---------+ + + + | Date | Type | Department | Care Team | Description | +--------+---------+ + + + | 11/21/ | Office | Radiation Oncology | Hay Henley MD | 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 | Visit | at [facility] [address] | [address] | right eye (HCC) | | | | [address] | [address] [place], | (Primary Dx) | | | | Pavilion, 4th floor | [place] [address] | | | | | [place], [place] | [phone] | | | | | [address] | | | | | | [phone] | | | +--------+---------+ + + + [...] + + + | Blood Pressure | 138/67 | 11/21/2016 10:40 AM | | | | | PDT | | + + + + + | Pulse | 74 | 11/21/2016 10:40 AM | | | | | PDT | | + + + + + | Temperature | - | - | | + + + + + | Respiratory Rate | - | - | | + + + + + | Oxygen Saturation | 100% | 11/21/2016 10:40 AM | | | | | PDT | | + + + + + | Inhaled Oxygen | - | - | | | Concentration | | | | + + + + + | Weight | 77.6 kg (171 lb) | 11/21/2016 10:40 AM | | | | | PDT | | + + + + + | Height | 172.7 cm (5' 8") | 11/21/2016 10:40 AM | | | | | PDT | | + + + + + | Body Mass Index | 26 | 11/21/2016 10:40 AM | | | | | PDT | | + + + + + documented in this encounter Progress Notes Hay Henley MD - 11/21/2016 10:30 AM PDTI personally interviewed Samina Boyd, duplicated the pertinent parts of the physical examination and formulated the treatment plan . I reviewed the excellent note by Dr. Chand and entered my findings directly into her not e. Barbra Ndiaye RN - 10:30 AM PDTNursing Note: Met with Samina Byod today. The patient is here today to be seen by Dr. Kale stapleton nd Dr. Chand in consultation for consideration of radiotherapy options. The pt is alert an d oriented, and walks with a steady gait. Patient is alone. The purpose and flow of the con sult visit was reviewed with the pt. The pt was given the Introduction to the [facility] Radiation Oncology Department pt information handout for review. The patient lives in [place], and will drive herself to appointments. 10 minutes were spent in face to face discussion and teaching during this encounter. Gilma Arguelles - 10:30 AM PDT RADIATION ONCOLOGY CONSULTATION Requesting Physician: Dr. 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 HPI: The patient initially presented with blurred vision in the right eye x 3 months and flashes x 3 weeks. She was seen by Dr. Hay Wu who noted a subretinal lesion in the right eye. She was referred to Dr. Hall. She saw Dr. Hall 11/09/16 who noted a "moderately el evated variably pigmented choroidal mass in the temporal macula with overlying SRF and mild lipofuscin." Diagnostic imaging revealed a 3x10.4x9.8mm dome-shaped, hypoechoic choroidal ma ss in the temporal mid-periphery with overlying subretinal fluid. 11/18/16 CT [facility] did not fi nd metastatic disease. Today she tells us that her visual symptoms are unchanged. She would like to get treatment started to get it taken care of. Her cataracts bother her. 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 There is no history of Amblyopia, and Blindness, and Ca ncer, and Cataract, and Diabetes, and Glasses, and Glaucoma, and Macular degeneration, and R etinal detachment, and Retinitis pigmentosa, and Strabismus, . 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 FA/NIACINAMIDE/CUPRIC OX/ZN OX (NICOTINAMIDE ORAL) Take by mouth. Glucosamine Sulfate (MALICK) 750 mg oral tablet Take by mouth. hydroCHLOROthiazide 12.5 mg oral capsule MULTIVITAMIN ORAL Take by mouth. No current facility-administered medications for this visit. REVIEW OF SYSTEMS: I personally reviewed the [facility] Radiation Oncology Questionnaire with the patient. It is pos itive for moles. Otherwise negative except as noted in the HPI, exam, PMH and PSH. PHYSICAL EXAM: Vitals: BP 138/67 | Pulse 74 | Ht 1.727 m (5' 8") | Wt 77.6 kg (171 lb) | SpO2 100% | BMI 2 6 kg/(m^2) Pain Score: 0 KARNOFSKY: 100% ECOG PERFORMANCE STATUS: 0= Fully active, able to carry on all pre-disease performance wit hout restriction GEN: Well developed adult woman in NAD, appears stated age HEENT: Oropharynx clear. MMM. LYMPH:No cervical or supraclavicular adenopathy CV: extremities well perfused, no cyanosis PULM: no accessory muscle use GI: grossly unremarkable MSK: no edema. NEURO: Alert and oriented to time/place/situation. Non-focal. PSYCH: mood and affect appropriate LABORATORY: No recent labs IMAGIN11/09/16 Diagnostic Studies Color Fundus Photography: Pigmented choroidal lesion in [...] associated SRF extending into central m acula 11/18/16 CT [facility] CHEST FINDINGS: Neck base is normal. The heart is of normal size. There is minimal atherosclerosis of the aorta. The pulmonary arteries are unremarkable. SVC is normal. No enlarged lymph nodes are seen in the mediastinum, gildardo, or axillae. Trachea and esophagus are normal. Mild scarring are visualized in the lung apices. There is no evidence for pleural effusion or pneumothorax. ABDOMEN/PELVIS FINDINGS: The liver demonstrates normal parenchyma. The gallbladder is normal. Biliary ducts are unremarkable. The spleen is unremarkable. The pancreas demonstrates normal parenchyma and a normal pancreatic duct. Adrenal glands are normal. The right kidney and visualized ureter are normal. The left kidney and visualized ureter are normal. Stomach, small bowel, and terminal ileum are normal. The appendix has a normal appearance. Colon is unremarkable. There is mild atherosclerosis of the aorta. Minimal atherosclerosis are noted of the iliac arteries. Mild atherosclerosis is seen of the left common femoral artery. There is no significant abnormality in the portal veins, mesenteric veins, or systemic veins. No enlarged lymph nodes are visualized within the omentum or retroperitoneum. There is no evidence for ascites or free air. Bladder is normal. The uterus has a bulky and heterogeneous appearance likely sales representative metals of the presence of fibroids. There appears to be a necrotic fibroid with low-attenuation center in the right fundus measuring 2.6 cm. BODY WALL FINDINGS: No obvious lesions are visualized in the subcutaneous tissues. The osseous structures, particularly the spine, demonstrate a somewhat heterogeneous appearance likely due to diffuse osteopenia. There is mild spondylosis. Moderate disc narrowing is at L2-3. Severe disc narrowing is at L3-4 with endplate sclerosis. IMPRESSION - No evidence for metastatic disease to the chest, abdomen, or pelvis. If clinically indicated, a PET CT scan can be considered for further evaluation. Fibroid uterus. An ultrasound can considered for further characterization if clinically indicated. PATHOLOGY: No pathology available ASSESSMENT: Samina Boyd is a 71 y.o. 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 Size chosen for tumor size and posterior location. The Collaborative Ocular Melanoma Studies group conducted a multicenter randomized trial co mparing enucleation vs I-125 brachytherapy for the treatment of choroidal melanomas. Patient s were randomized to one of the above therapies. At 12 year follow up, all-cause mortality w as 43% for brachytherapy and 41% for enucleation. 5, 10, and 12 year rates of from met astatic melanoma were 10, 18, and 21% for brachytherapy and 11, 17,and 17% for enucleation. No differences in mortality were significant. Patients were stratified by age and tumor size. Patients >60y/o with maximum dimension < 11mm --> 5 yr 80% OS, 94% without metastases ; 10 yr 64% OS, 90% without metastases Patients >60y/o with maximum dimension > 11mm --> 5 yr 70% OS, %80 without metastases ; 10 yr 50% OS, 72% without metastases Her tumor is just under 11mm. We recommend 85Gy to the tumor apex delivered in about 100 hours. The risks and benefits of radiation therapy were discussed in detail with the patient. Side effects included but were not limited to dry eye, conjunctivitis, vision loss, cataract for mation, bleeding, infection, eyeball damage, and secondary cancer. The patient expressed an understanding of these risks and has agreed to proceed with the proposed treatment. Informe d consent was obtained. PLAN: 1) eye plaque I-125 brachytherapy for R eye choroidal melanoma to be scheduled as per ophth almology, 85Gy, 18mm non-notched plaque This patient was seen, examined, and discussed with my attending, Dr. Henley who agrees with this assessment and plan. 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
--- OUTSIDE RECORDS SUMMARY | ~2020-01-03 | XMS | Encounter Summary ---
Demographics + + + | Address | [address] | | | [place] [address] | + + + | Home Phone | | + + + | Preferred Language | Unknown | + + + | Marital Status | Single | + + + | Faith Affiliation | NON | + + + | Race | White | + + + | Ethnic Group | Not or | + + + Author + + + | Author | [facility] | + + + | Organization | [facility] | + + + | Address | Unknown | + + + | Phone | Unavailable | + + + Support + + +---------+ + | Name | Relationship | Address | Phone | + + +---------+ + | Sheron Rivera | ECON | Unknown | | + + +---------+ + Care Team Providers + +------+ + | Care Wet Finisher Wool Name | Role | Phone | + +------+ + PCP | Unavailable | + +------+ + Encounter Details +--------+ + + + + | Date | Type | Department | Care Team | Description | +--------+ + + + + | 08/10/ | Hospital | Dermatopathology | | | | 2017 | Encounter | [address] | | | | | | Mailcode: [id number] | | | | | | [facility] | | | | | | and Healing, | | | | | | [facility], [facility] | | | | | | [place], [place] | | | | | | [address] | | | | | | [phone] | | | +--------+ + + + [...] | 2019 | Visit | | MDPhD [address] | | | | | | [address] | | | | | | [place], [place] | | | | | | [address] | | | | | | [phone] | | | | | | | | +--------+---------+ + + + documented as of this encounter Procedures + +--------+ + + + | Procedure Name | Priori | Date/Time | Associated Diagnosis | Comments | | | ty | | | | + +--------+ + + + | DERM PATHOLOGY | Routin | 08/10/2016 | Carcinoma in situ | Results for this | | | e | | of skin of right | procedure are in the | | | | | upper extremity | results section. | | | | | including shoulder | | | | | | Carcinoma in situ of | | | | | | skin of trunk | | + +--------+ + + + documented in this encounter Results DERM PATHOLOGY (08/10/2016) + + + + + + | Component | Value | Ref Range | Performed | Pathologist | | | | | At | Signature | + + + + + + | DERMATOPATH | SOURCE OF SPECIMEN:A Lt. | | [facility] | | | OLOGY(WET | dorsal hand, shave | | DERMATOPATH | | | MNT) | biopsySOURCE OF | | OLOGY | | | | SPECIMEN:B Lt. dorsal | | | | | | wrist, shave | | | | | | biopsySOURCE OF | | | | | | SPECIMEN:C Lt. lateral | | | | | | back, shave biopsy | | | | | | CLINICAL DESCRIPTION:A: | | | | | | 5 x 7 scaling pink | | | | | | papule; r/o NMSC.B: 6 x | | | | | | 9 scaling pink papule; | | | | | | r/o NMSC.C: 9 x 6 | | | | | | scaling pink papule; r/o | | | | | | NMSC. GROSS | | | | | | DESCRIPTION:Received in | | | | | | formalin are three | | | | | | specimens labeled | | | | | | Samina Boyd:A: | | | | | | Specimen is labeled "A | | | | | | | | | | | | | | | | | | L dorsal hand" and | | | | | | consists of an | | | | | | irregularshave of scaly | | | | | | papular patchy | | | | | | prdjf-wtaftx-fwibt skin, | | | | | | [id number]. Thesurgical | | | | | | margin is inked black; | | | | | | the tissue is bisected, | | | | | | and entirelysubmitted in | | | | | | cassette A1.B: Specimen | | | | | | is labeled "B | | | | | | | | | | | | L dorsal wrist" and | | | | | | consists of an | | | | | | irregularshave of scaly | | | | | | papular bdohj-eye-rrkgbt | | | | | | skin, [id number]. The | | | | | | surgical marginis inked | | | | | | black; the tissue is | | | | | | bisected, and entirely | | | | | | submitted in | | | | | | cassetteB1.C: Specimen | | | | | | is labeled "C | | | | | | | | | | | | L lateral back" and | | | | | | consists of an | | | | | | irregularshave of | | | | | | papular white-merritt skin, | | | | | | [id number]. The surgical | | | | | | margin is inkedblack; | | | | | | the tissue is bisected, | | | | | | and entirely submitted | | | | | | in cassette C1. | | | | | | MICROSCOPIC | | | | | | DESCRIPTION:A: There is | | | | | | parakeratosis overlying | | | | | | atypical keratinocytes | | | | | | at all levels ofthe | | | | | | epidermis. Most of the | | | | | | cells have pleomorphic, | | | | | | hyperchromatic | | | | | | nuclei,some are in | | | | | | mitosis, and most have | | | | | | eosinophilic cytoplasm. | | | | | | There ispapillated | | | | | | epidermal hyperplasia | | | | | | with thickening of the | | | | | | papillary dermiswith | | | | | | dense collagen bundles | | | | | | oriented perpendicular | | | | | | to the surface of | | | | | | thespecimen and a | | | | | | lymphocytic infiltrate | | | | | | around the superficial | | | | | | vessels.B: There is | | | | | | parakeratosis overlying | | | | | | atypical keratinocytes | | | | | | in areas at alllevels of | | | | | | the hyperplastic | | | | | | epidermis, with | | | | | | extension down | | | | | | adnexalepithelium to the | | | | | | base. Most of the | | | | | | cells have pleomorphic, | | | | | | hyperchromaticnuclei and | | | | | | eosinophilic cytoplasm. | | | | | | C: There is an | | | | | | asymmetric and poorly | | | | | | [...] | | | | | | hyperchromatic nuclei | | | | | | andhave eosinophilic | | | | | | cytoplasm.. There is a | | | | | | band-like lymphocytic | | | | | | infiltratewith | | | | | | associated | | | | | | squamotization of the | | | | | | basalis. 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 | | | | | | NOTE: Squamous | | | | | | cell carcinoma in situ | | | | | | is present at the | | | | | | peripheral and | | | | | | deepbiopsy margins. | | | | | | B: SQUAMOUS | | | | | | CELL CARCINOMA IN SITU. | | | | | | NOTE: Squamous | | | | | | cell carcinoma in situ | | | | | | extends down adnexal | | | | | | epithelium tothe deep | | | | | | biopsy margin. | | | | | | C: SQUAMOUS CELL | | | | | | CARCINOMA IN SITU, WITH | | | | | | LICHENOID INFLAMMATION. | | | | | | NOTE: Squamous | | | | | | cell carcinoma in situ | | | | | | extends focally to the | | | | | | peripheralbiopsy margin. 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
--- OUTSIDE RECORDS SUMMARY | ~2020-01-03 | XMS | Encounter Summary ---
Demographics + + + | Address | [address] | | | [place] [address] | + + + | Home Phone | | + + + | Preferred Language | Unknown | + + + | Marital Status | Single | + + + | Restorationism Affiliation | NON | + + + | Race | White | + + + | Ethnic Group | Not or | + + + Author + + + | Author | [facility] | + + + | Organization | [facility] | + + + | Address | Unknown | + + + | Phone | Unavailable | + + + Support + + +---------+ + | Name | Relationship | Address | Phone | + + +---------+ + | Sheron Rivera | ECON | Unknown | | + + +---------+ + Care Team Providers + +------+ + | Care Database Engineer Name | Role | Phone | [...] Description | +--------+---------+ + + + | 12/16/ | Surgery | [facility] | Jennifer Hall, | [address] REMOVAL | | 2017 | | [address] | ,PhD [address] [facility] | | | | [facility] | [address] | | | | | [place] [address] | [place], [place] | | | | | | [address] | | | | | | [phone] | | | | | | | [...] ? Uncontrolled nausea Jennifer Hall M.D., Ph.D [phone] or [phone] Arvind Gauthier M.D. [phone] or [phone] Return appointment Date: Time: documented in this [...] rectus, right eye Surgeon: Jennifer Hall MD,PhD Digital Analyst: None Anesthesia: MAC Implant: None EBL: < [...] Order(s): OPTHALMIC US B-SCANProcedure(s): OPTHALMI C US S-IXVLP-fuxg of the right eye for plaque localization [...] | 2019 | Visit | | ,PhD [address] | | | | | | [address] | | | | | | [place], [place] | | | | | | [address] | | | | | | [phone] | | | | | | | [...] rectus, right eye Surgeon: Jennifer Hall MD,PhD Digital Analyst: | | | None Anesthesia: MAC Implant: [...] balanced salt (BSS) ophthalmic | Given | 12/17/19 | 15 mL | | Right | | irrigation INTRAPROCEDURE PRN, | | 17 1:18 | | | Eye | | Starting Mon12/16/16 at 1318, | | PM PDT | | | | | Until Mon12/16/16 at 1339 | | | | | | + +--------+ +-------+------+--------+ +---+---+ | | | +---+---+ + +-------+ +--------+---+---+ | cyclopentolate 1%-PHENYLEPHrine | Given | 12/17/19 [...] | | | | + +-------+ +--------+---+---+ + +---+ | | | [...] | | | 1315, Until Mon12/16/16 at 1958, | | | nausea/vomiting due to | | | dehydration | | + +---+ | | | + +---+ + +-------+ +------+---+--------+ | Local with hyaluronidase: | Given | 12/17/19 | 5 mL | | Right | | lidocaine 2% - bupivacaine 0.75% | | 17 1:07 | | | Eye | | - hyaluronidase 150 units/mL 1 mL | | PM PDT | | | | | 1:10:10) INTRAPROCEDURE PRN, | | | | | | | Starting Mon12/16/16 at 1307, | | | | | | | Until Mon12/16/16 at 1339 | | | | | | + +-------+ +------+---+--------+ + +---+ | | | + +---+ | naloxone (NARCAN) injection | | | intravenous, POSTPROCEDURE PRN, | | | Starting 12/16/16 at 1314, | | | Until 12/16/16 at 1958, | | | hypopnea | | + +---+ | | | + +---+ + +-------+ +---------+---+--------+ | | Given | 12/17/19 | 1 strip | | Right | | nwigdtoq-klnjribrs-lrkhzyozmlqgm | | 17 1:18 | | | Eye | | (MAXITROL) 3.5 mg/g-10,000 | | PM PDT | | | | | unit/g-0.1 % ophthalmic ointment | | | | | | | INTRAPROCEDURE PRN, Starting Fri | | | | | | | 12/16/16 at 1318, Until Fri | | | | | | | 12/16/16 at 1339 | | | | | | + [...] 1346, | | | Until Mon12/16/16 at 1957, | | | post-op severe pain | | + +---+ | | | + +---+ documented in this encounter
--- OUTSIDE RECORDS SUMMARY | ~2020-01-03 | XMS | Encounter Summary ---
Demographics + + + | Address | [address] | | | [place] [address] | + + + | Home Phone [...] + + + | Author | [facility] | + + + | Organization | [facility] | + + + | Address | Unknown | + + + | Phone | Unavailable | + + + Support + + +---------+ + | Name | Relationship | Address | Phone | + + +---------+ + | Sheron Rivera | ECON | Unknown | | + + +---------+ + Care Team Providers + +------+ + | Care Screw Machine Tool Setter Name | Role | Phone | + +------+ + | Tom Sheppard MD | PCP | | + +------+ + Encounter Details +--------+ + + + + | Date | Type | Department | Care Team | Description | +--------+ + + + + | 03/14/ | MyChart | [facility] | Jennifer Hall, | RE: referral to | | 2018 | Encounter | [facility] | ,PhD [address] | [place] | | | | Oncology at [facility] | [address] | | | | | [address] | [place], [place] | | | | | [address] [facility] | [address] | | | | | [address], [address] floor | [phone] | | | | | [place] [address] | | | | | | [phone] | | | +--------+ + + + [...] | 2020 | Visit | | ,PhD [address] | | | | | | [address] | | | | | | [place], [place] | | | | | | [address] | | | | | | [phone] | | | | | | | | +--------+---------+ + + + documented as of this encounter Visit Diagnoses Not on filedocumented in this encounter"
--- OUTSIDE RECORDS SUMMARY | ~2020-01-03 | XMS | Encounter Summary ---
Demographics + + + | Address | [address] | | | [place] [address] | + + + | Home Phone [...] Author + + + | Author | [facility] | + + + | Organization | [facility] | + + + | Address | Unknown | + + + | Phone | Unavailable | + + + Support + + +---------+ + | Name | Relationship | Address | Phone | + + +---------+ + | Sheron Rivera | ECON | Unknown | | + + +---------+ + Care Team Providers + +------+ + | Care Land Inspector Name | Role | Phone | + +------+ + | Tom Sheppard MD | PCP | | + +------+ + Encounter Details +--------+ + + + + | Date | Type | Department | Care Team | Description | +--------+ + + + + | 07/13/ | MyChart | [facility] | Jennifer Hall, | recomendations | | 2018 | Encounter | [place] [facility] | ,PhD [address] | below, i will re-fax | | | | Oncology at [facility] | [address] | now | | | | [address] | [place], [place] | | | | | [facility] | [address] | | | | | [address], [address] floor | [phone] | | | | | [place] [address] | | | | | | [phone] | | | +--------+ + + + [...] | 2020 | Visit | | ,PhD [address] | | | | | | [address] | | | | | | [place], [place] | | | | | | [address] | | | | | | [phone] | | | | | | | | +--------+---------+ + + + documented as of this encounter Visit Diagnoses Not on filedocumented in this encounter"
--- OUTSIDE RECORDS SUMMARY | ~2020-01-03 | XMS | Encounter Summary ---
Demographics + + + | Address | [address] | | | [place] [address] | + + + | Home Phone | | + + + | Preferred Language | Unknown | + + + | Marital Status | Single | + + + | Yazidi Affiliation | NON | + + + | Race | White | + + + | Ethnic Group | Not or | + + + Author + + + | Author | [facility] | + + + | Organization | [facility] | + + + | Address | Unknown | + + + | Phone | Unavailable | + + + Support + + +---------+ + | Name | Relationship | Address | Phone | + + +---------+ + | Sheron Rivera | ECON | Unknown | | + + +---------+ + Care Team Providers + +------+ + | Care Ice Cream Server Name | Role | Phone | + +------+ + | Tom Sheppard MD | PCP | | + +------+ + Encounter Details +--------+ + + + + | Date | Type | Department | Care Team | Description | +--------+ + + + + | 01/05/ | Document-Sc | Health Information | Unknown . | | | 2017 | anned | Services [address] | | | | | | [address] | | | | | | Mailcode: [id number] | | | | | | [facility] | | | | | | [place], [place] | | | | | | [address] | | | | | | [phone] | | | +--------+ + + + [...] | 2019 | Visit | | MDPhD [address] | | | | | | [address] | | | | | | [place], [place] | | | | | | [address] | | | | | | [phone] | | | | | | | | +--------+---------+ + + + documented as of this encounter Visit Diagnoses Not on filedocumented in this encounter"
--- OUTSIDE RECORDS SUMMARY | ~2020-01-03 | XMS | Encounter Summary ---
Demographics + + + | Address | [address] | | | [place] [address] | + + + | Home Phone | | + + + | Preferred Language | Unknown | + + + | Marital Status | | + + + | Adventist Affiliation | Unknown | + + + | Race | White | + + + | Ethnic Group | Not or | + + + Author + + + | Author | [facility] | | | and [place] | + + + | Organization | [facility] | | | [...] Team Providers + +------+ + | Care Dipper And Drier Name | Role | Phone | + +------+ + PCP | Unavailable | + +------+ + Reason for Visit +--------+--------+ + | Reason | Onset | Comments | | | Date | | +--------+--------+ + | Other | 10/08/ | | | | 2014 | | +--------+--------+ + Encounter Details +--------+ + + + + | Date | Type | Department | Care Team | Description | +--------+ + + + + | 10/08/ | Telephone | [facility] | Jamaal Bui MD | Other | | 2013 | | GASTROENTEROLOGY | [address] [place] | | | | | [address] | [address] [place], [place] | | | | | [address] [place], [place] | [address] | | | | | [address] | | | | | | [phone] | | | +--------+ + + + [...] this encounter Miscellaneous Notes Telephone Encounter - Bernard Espinoza Cert MA - 10/17/2013 11:12 AM PDTReferral notes sent t o scanning. Letter sent to patient.Electronically signed by Natali Guajardo MA at 2013 11:13 AM PDTTelephone Encounter - Bernard Espinoza Cert MA - 10/16/2013 4:46 PM PDTLeft third message for patient to return my call. elephone Encounter - Bernard Espinoza Cert MA - 10/10/2013 3:03 PM PDTLeft second message for patient to return my call. elephone Encounter - Bernard Espinoza Cert MA - 10/08/2013 1:37 PM PDTLeft message for patient to return my call. When she calls back we will schedul e colonoscopy. docum ented in this encounter Plan of Treatment Not on filedocumented as of this encounter Visit Diagnoses Not on filedocumented in this encounter"
--- OUTSIDE RECORDS SUMMARY | ~2020-01-03 | XMS | Encounter Summary ---
Demographics + + + | Address | [address] | | | [place] [address] | + + + | Home Phone [...] Team Providers + +------+ + | Care Aviation Support Equipment Repairer Name | Role | Phone | + [...] + | Closed | | Ophthalmology | Diagnoses | Bryce | Rafael, | | | | | Malignant | Hay Hatch MD | Jennifer Stephenson, | | | | | neoplasm of | [address] | ,PhD [address] | | | | | right | [address] [place] | [address] | | | | | choroid | [place] | [address] | | | | | | [address] [address] | | | | | | Phone: | [place], [place] | | | | | | [phone] | [address] | | | | | | Fax: | Phone: | | | | | | [phone] | [phone] | | | | | | | Fax: | | | | | | | [phone] | +--------+--------+ + + + + Encounter Details +--------+---------+ + + + | Date | Type | Department | Care Team | Description | +--------+---------+ + + + | 02/27/ | Office | [facility] | Jennifer Hall, | Choroidal malignant | | 2019 | Visit | [facility] | ,PhD [address] | melanoma, right | | | | Oncology at [facility] | [address] | (HCC) (Primary Dx) | | | | [address] | [place], [place] | | | | | Dr [facility] | [address] | | | | | [address] | [phone] | | | | | [place] [facility] | | | | | | [phone] | | | +--------+---------+ + + + [...] encounter Progress Notes Jennifer Hall MD,PhD - 02/27/2019 10:00 AM PSTFormatting of this note might be differen t from the original. Return Visit Progress Note 02/27/2019 CC: Follow-up visit HPI: Samina Boyd is a 73 y.o. 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 Reports decreased vision in the right eye. She has been getting treated with Avastin, right eye. Patient deferred Chata stin injected right eye on last visit 01/30/[address] Franco because swelling was improved . Accompanied today by sister, Sheron. HPI: Here for routine f/u. Notes that vision seems to continue to decline in the right e ye. Seeing Dr. Franco in [place] for retina care. Has been receiving anti-VEGF injections . Last about 11/2018. Reports that after Avastin x 3, the drug was changed. She's not sure wh at the name is. That seemed to work better per patient. Most recent note available to me tomatt alas was 10/2018. 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 --[id number], stage I [facility] oncology imaging: SO exp 07/10/2027 Right eye: grayish white mass in the temporal macula and midperiphery CP, Optos, OCT macula, B scan Medications: Current Outpatient Medications (Other) Medication amLODIPine CALCIUM CARBONATE/VITAMIN D3 (VITAMIN D-3 ORAL) FA/NIACINAMIDE/CUPRIC OX/ZN OX (NICOTINAMIDE ORAL) Glucosamine Sulfate hydroCHLOROthiazide MULTIVITAMIN ORAL Examination: See Ophthalmology Exam Module Diagnostic Studies: See iProc Reports Assessment and Plan: Choroidal melanoma, right eye, 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 --Following with Dr. Tom Sheppard for systemic surveillance including periodic imaging of the liver and lungs. --RTC approximately 6 months for evaluation of treatment effect, sooner PRN. Radiation retinopathy, right eye --Has been following with Dr. Franco locally for this issue. Defer to Dr. Franco regarding wallace enrique for this issue but did discuss with Patti today that she may benefit from ongoing i njections. I reviewed all components above, made necessary revisions and performed critical portions o f the history and examination. Jennifer Hall MD PhD Ocular Oncology Sales And Marketing Associate, Department of Ophthalmology [facility], [facility] [phone] documented in th is encounter Plan of Treatment +--------+---------+ + + + | Date | Type | Specialty | Care Team | Description | +--------+---------+ + + + | 03/02/ | Office | Ophthalmology | Jennifer Hall, | | | 2019 | Visit | | MDPhD [address] | | | | | | [address] | | | | | | [place], [place] | | | | | | [address] | | | | | | [phone] | | | | | | | | +--------+---------+ + + + documented as of this encounter Procedures + +--------+ + + + | Procedure Name | Priori | Date/Time | Associated Diagnosis | Comments | | | ty | | | | + +--------+ + + + | B SCAN ULTRASOUND - | Routin | 02/27/2019 | Choroidal | Results for this | | OD - RIGHT EYE | e | 10:52 AM | malignant melanoma, | procedure are in the | | | | PST | right (HCC) | results section. | + +--------+ + + + | FUNDUS PHOTOS | Routin | 02/27/2019 | Choroidal | Results for this | | | e | 10:43 AM | malignant melanoma, | procedure are in the | | | | PST | right (HCC) | results section. | + +--------+ + + + | OCT, RETINA | Routin | 02/27/2019 | Choroidal | Results for this | | | e | 10:30 AM | malignant melanoma, | procedure are in the | | | | PST | right (HCC) | results section. | + +--------+ + + + documented in this encounter Results B SCAN ULTRASOUND - OD - RIGHT EYE (02/27/2019 10:52 AM PST) + + + | Narrative | Performed At | + + + | This is a | [facility] | | B-scan of the right eye for continued follow of a previously treated | [facility] | | temporal choroidal melanoma demonstrating no appreciable change in | | | echographic. The treated lesion is minimally elevated in the temporal | | | midperiphery with low reflectivity consistent with persistent | | | subretinal fluid over the apex. The underlying sclera appears intact. | | | The anterior chamber is formed and phakic lens is present. Thre is a | | | PVD with highly reflective vitreous opacities.The retrobulbar optic | | | nerve appears within normal limits and the orbit is unremarkable. | | | Jennifer LUNA(R) (ARRT) Jennifer Hall MD,PhD I have reviewed the | | | images and the initial report and I have made any necessary changes to | | | the report as needed based on my assessment. ЮЛИЯ PARNELL MD | | |Jennifer LUNA(R) (ARRT) | | |Jennifer Hall MD,PhD | | | | | |I [...] [facility] | [address] | [place] [address] | | | INSTITUTE | [place]. | | | + + + + + FUNDUS PHOTOS (02/27/2019 10:43 AM PST) + + + | Narrative | Performed At | + + + | [employer] | [facility] | | DocumentationType was Optos, 50. NotesThere is no concerning change | [facility] | | in the appearance or borders of the treated tumor as compared with | | | photographs taken 07/2018. | | |There is no concerning change in the appearance or borders of the treated | | |tumor as compared with photographs taken 07/2018. | | | | | + + + + + + + + | Performing | Address | City/State/Zipcode | Phone Number | | Organization | | | | + + + + + | [facility] | [address] | [place] [address] | | | INSTITUTE | [facility]. | | | + + + + + OCT, RETINA (02/27/2019 10:30 AM PST) + + + | Narrative | Performed At | + + + | [employer] | [facility] | | DocumentationRight EyeQuality: good Central macular thickness: | [facility] | | 255 Segmentation: accurate Left EyeQuality: good Central | | | macular thickness: 285 Segmentation: accurate Provider | | | DocumentationRight EyeContour: central thickening, noncentral | | | atrophy Fluid and related findings: SRF Retinal findings: (NFL | | | thinning nasally; indistinct layers) Left EyeContour: normal | | | macula Fluid and related findings: no fluid | | |Left Eye | | |Quality: good | | | | | |Central macular thickness: 285 | | |Segmentation: accurate | | | | | | | | |Provider Documentation | | |Right Eye | | |Contour: central thickening, noncentral atrophy | | |Fluid and related findings: SRF | | |Retinal findings: (NFL thinning nasally; indistinct layers) | | | | | | | | |Left Eye | | |Contour: normal macula | | |Fluid and related findings: no fluid | | + + + + + + + + | Performing | Address | City/State/Zipcode | Phone Number | | Organization | | | | + + + + + | [facility] | [address] | [place] [address] | | | [place] | [place] | | | + + + + + documented in this encounter Visit Diagnoses + + | Diagnosis | + + | Choroidal malignant melanoma, right (HCC) - Primary | + + documented in this encounter"
--- OUTSIDE RECORDS SUMMARY | ~2020-01-03 | XMS | Encounter Summary ---
Demographics + + + | Address | [address] | | | [place] [address] | + + + | Home Phone | | + + + | Preferred Language | Unknown | + + + | Marital Status | Single | + + + | Jewish Affiliation | NON | + + + | Race | White | + + + | Ethnic Group | Not or | + + + Author + + + | Author | [facility] | + + + | Organization | [facility] | + + + | Address | Unknown | + + + | Phone | Unavailable | + + + Support + + +---------+ + | Name | Relationship | Address | Phone | + + +---------+ + | Sheron Rivera | ECON | Unknown | | + + +---------+ + Care Team Providers + +------+ + | Care Maritime Guard Name | Role | Phone | + +------+ + | Tom Sheppard MD | PCP | | + +------+ + Encounter Details +--------+ + + + + | Date | Type | Department | Care Team | Description | +--------+ + + + + | 01/11/ | Document-Sc | Health Information | Unknown . | | | 2017 | anned | Services [id number] | | | | | [address] | | | | | | Mailcode: [id number] | | | | | | [facility] | | | | | | [place], [place] | | | | | | [address] | | | | | | [phone] | | | +--------+ + + + [...] | 2019 | Visit | | MDPhD [address] | | | | | | [address] | | | | | | [place], [place] | | | | | | [address] | | | | | | [phone] | | | | | | | | +--------+---------+ + + + documented as of this encounter Visit Diagnoses Not on filedocumented in this encounter"
--- OUTSIDE RECORDS SUMMARY | ~2020-01-03 | XMS | Encounter Summary ---
Demographics + + + | Address | [address] | | | [place] [address] | + + + | Home Phone | | + + + | Preferred Language | Unknown | + + + | Marital Status | Single | + + + | Worship Affiliation | NON | + + + | Race | White | + + + | Ethnic Group | Not or | + + + Author + + + | Author | [facility] | + + + | Organization | [facility] | + + + | Address | Unknown | + + + | Phone | Unavailable | + + + Support + + +---------+ + | Name | Relationship | Address | Phone | + + +---------+ + | Sheron Rivera | ECON | Unknown | | + + +---------+ + Care Team Providers + +------+ + | Care Clinical Pharmacologist Name | Role | Phone | + [...] neoplasm of | [address] | ,PhD [address] | | | | | right | [address] | [address] | | | | | choroid | [place] | [address] | | | | | | [address] [address] | | | | | | Phone: | [place], [place] | | | | | | [phone] | [address] | | | | | | Fax: | Phone: | | | | | | [phone] | [phone] | | | | | | | Fax: | | | | | | | [phone] | +--------+--------+ + + + + Encounter Details +--------+---------+ + + + | Date | Type | Department | Care Team | Description | +--------+---------+ + + + | 08/15/ | Office | [facility] | Jennifer Hall, | Choroidal malignant | | 2019 | Visit | [facility] | ,PhD [address] | melanoma, right | | | | Oncology at [facility] | [address] | ([facility]) | | | | [address] | [place], [place] | | | | | [facility] | [address] | | | | | [address] | [phone] | | | | | [place] [address] | | | | | | [phone] | | | +--------+---------+ + + + [...] encounter Progress Notes Jennifer Hall MD,PhD - 08/15/2018 11:00 AM PDTFormatting of this note might be differen t from the original. Return Visit Progress Note 08/15/2018 CC: Follow-up visit HPI: Samina Boyd is a 72 y.o. 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 Notes she has had two shots. The third withheld by Dr. Wu. Accompanied today by sister, Sheron. HPI: Here for routine f/u. No new concerns regarding eyes/vision. Vision has decreased i n the right eye. She's been seeing Dr. Wu for retina care and has received anti-VEGF inj ections x 2. He held an injection more recently. Yes/No Eye(s) affected Decreased Vision y right Eye Pain n na Flashing lights n na New floaters n na Double vision n na Systemic Care: PCP: Tom Sheppard MD Oncologist, if applicable: none Care provider managing metastatic surveillance (for patients treated for uveal melanoma): P CP Surveillance imaging: US AB 07/2018 Source of information: Per patient - all was normal; no report available. 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 --Following with Dr. Tom Sheppard for systemic surveillance including periodic imaging of the liver and lungs. --RTC approximately 6 months for evaluation of treatment effect, sooner PRN. Radiation retinopathy, right eye --Has been following with Dr. Wu locally. While the IRF has responded to treatment, and there is no CME observed today, the vision has declined. I suspect this may be due to macul ar ischemia. An FA may be helpful in this regard, if not previously performed. D/w Patti alas. There appears to be thinning of the RNFL as well on macular OCT. No dedicated optic nerv e scans today but this could also be considered. Overall the nerve appearance is stable. --Continue to follow with Dr. Wu for this issue. Recommended re-evaluation within 2-3 w eeks. I reviewed all components above, made necessary revisions and performed critical portions o f the history and examination. Jennifer Hall MD PhD Ocular Oncology Slice Plug Cutter Operator, Department of Ophthalmology [facility], [facility] [phone] documented in th is encounter Plan of Treatment +--------+---------+ + + + | Date | Type | Specialty | Care Team | Description | +--------+---------+ + + + | 03/02/ | Office | Ophthalmology | Jennifer Hall, | | | 2019 | Visit | | ,PhD [address] | | | | | [address] | | | | | | [place], [place] | | | | | | [address] | | | | | | [phone] | | | | | | | | +--------+---------+ + + + documented as of this encounter Procedures + +--------+ + + + | Procedure Name | Priori | Date/Time | Associated Diagnosis | Comments | | | ty | | | | + +--------+ + + + | B SCAN ULTRASOUND - | Routin | 08/15/2018 | Choroidal | Results for this | | OD - RIGHT EYE | e | 1:02 PM | malignant melanoma, | procedure are in the | | | | PDT | right (HCC) | results section. | + +--------+ + + + | OCT, RETINA | Routin | 08/15/2018 | Choroidal | Results for this | | | e | 12:42 PM | malignant melanoma, | procedure are in the | | | | PDT | right ([facility]) | results section. | + +--------+ + + + | FUNDUS PHOTOS | Routin | 08/15/2018 | Choroidal | Results for this | | | e | 12:35 PM | malignant melanoma, | procedure are in the | | | | PDT | right ([facility]) | results section. | + +--------+ + + + documented in this encounter Results B SCAN ULTRASOUND - OD - RIGHT EYE (08/15/2018 1:02 PM PDT) + + + | Narrative | Performed At | + + + | This is a | [facility] | | B-scan of the right eye for continued follow of a previously treated | [facility] | | temporal choroidal melanoma showing a slight decrease in height to | | | 1.6mm. The underlying sclera appears to remain intact. AC: Formed | | | Lens: Phakic Vitreous: PVD with dense vitreous opacities Retina: | | | shallow fluid over temporal tumor apex Choroid/ sclera: There is a | | | moderately elevated hypoechoic choroidal lesion in the temporal | | | midperiphery with shallow overlying subretinal fluid Disc/ Nerve: | | | unremarkable Orbit/ muscles: unremarkable Jennifer Ruiz RT(R) | | | (ARRT) Jennifer Hall MD,PhD I have reviewed the images and the | | | initial report and I have made any necessary changes to the report as | | | needed based on my assessment. ЮЛИЯ PARNELL MD | | |Orbit/ muscles: unremarkable | | | | | | | | |Jennifer Ruiz RT(R) (ARRT) | | |Jennifer Hall MD,PhD | [...] [facility] | [address] | [place] [address] | | | [place] | [place] | | | + + + + + DORITA ROCHE (08/15/2018 12:42 PM PDT) + + + | Narrative | Performed At | + + + | [address] Engineer | [facility] | | DocumentationRight EyeQuality: good Central macular thickness: | [facility] | | 287 Segmentation: accurate Left EyeQuality: good Central | | | macular thickness: 287 Segmentation: accurate Provider | | | DocumentationRight EyeContour: central thickening, noncentral | | | atrophy Fluid and related findings: SRF, better Retinal findings: | | | (NFL thinning nasally; indistinct layers) Left EyeContour: | | | normal macula Fluid and related findings: no fluid | | |Left Eye | | |Quality: good | | | | | |Central macular thickness: 287 | | |Segmentation: accurate | | | | | | | | |Provider Documentation | | |Right Eye | | |Contour: central thickening, noncentral atrophy | | |Fluid and related findings: SRF, better | | |Retinal findings: (NFL thinning nasally; indistinct layers) | | | | | | | | |Left Eye | | |Contour: normal macula | | |Fluid and related findings: no fluid | | + + + + + + + + | Performing | Address | City/State/[facility] | Phone Number | | Organization | | | | + + + + + | [facility] | [address] | [place] [address] | | | INSTITUTE | [address] | | | + + + + + FUNDUS PHOTOS (08/15/2018 12:35 PM PDT) + + + | Narrative | Performed At | + + + | [address] Engineer | [facility] | | DocumentationType was Optos, 60. NotesThere is no concerning change | [facility] | | in the appearance or borders of the treated tumor as compared with | | | photographs taken 01/2018. | | |There is no concerning change in the appearance or borders of the treated | | |tumor as compared with photographs taken 01/2018. | | | | | + + + + + + + + | Performing | Address | City/State/Zipcode | Phone Number | | Organization | | | | + + + + + | [facility] | [address] | [place] [address] | | | [place] | [place] | | | + + + + + documented in this encounter Visit Diagnoses + + | Diagnosis | + + | Choroidal malignant melanoma, right (HCC) | + + documented in this encounter"
--- OUTSIDE RECORDS SUMMARY | ~2020-01-03 | XMS | Encounter Summary ---
Demographics + + + | Address | [address] | | | [place] [address] | + + + | Home Phone | | + + + | Preferred Language | Unknown | + + + | Marital Status | | + + + | Oriental Orthodox Affiliation | Unknown | + + + | Race | White | + + + | Ethnic Group | Not or | + + + Author + + + | Author | [facility] | | | and [place] | + + + | Organization | [facility] | | [...] Team Providers + +------+ + | Care Non Cdl Driver Name | Role | Phone | + +------+ + | Tom Sheppard MD | PCP | | + +------+ + Reason for Referral Evaluate & Treat (Routine) +--------+ + + + + + | Status | Reason | Specialty | Diagnoses / | Referred By | Referred To | | | | | Procedures | Contact | Contact | +--------+ + + + + + | Closed | Specialty | Gastroenterol | Diagnoses | Hao, | Hao, | | | Services | ogy | Special | Jamaal Brown MD | Jamaal Brown MD | | | Required | | screening | [address], | | | | | for | [address], [place] | [address] | | | | | malignant | [address] [place] | [place], | | | | | neoplasms, | [place], [place] | [place] [address] | | | | | colon | [address] | Phone: | | | | | Procedures | Phone: | [phone] | | | | | [place] | [phone] | Fax: | | | | | COLONOSCOPY, | Fax: | [phone] | | | | | DIAGNOSTIC | [phone] | | | | | | [place] | | | | | | | COLONOSCOPY, | | | | | | | BIOPSY [place] | | | | | | | COLONOSCOPY, | | | | | | | REMV | | | | | | | MARGO STARR | | | +--------+ + + + + + Reason for Visit + +--------+ + | Reason | Onset | Comments | | | Date | | + +--------+ + | Appointment | 01/29/ | | | | 2013 | | + +--------+ + Encounter Details +--------+ + + + + | Date | Type | Department | Care Team | Description | +--------+ + + + + | 01/29/ | Telephone | [facility] | Jamaal Bui MD | Appointment | | 2013 | | OTOLARYNGOLOGY [address] | [address], [place] | | | | | [address] | [address] [place], [place] | | | | | [place], [place] | [address] | | | | | [address] | | | | | | [phone] | | | +--------+ + + + [...] this encounter Miscellaneous Notes Telephone Encounter - Shanel Smith RN - 02/11/2014 4:42 PM PDTPrescription sent in, writ ten instructions reviewed and sent to patient, notes back to [facility] for preload.Electronical ly signed by Shanel Smith RN at 02/11/2014 4:42 PM PDTTelephone Encounter - Bernard Espinoza Cert MA - 02/11/2014 4:09 PM PDTAuth submitted. elephone Encounter - Bernard Espinoza Cert MA - 02/07/2014 10:3 1 AM PDTOR booking request submitted.Electronically signed by Natali Guajardo MA at 02/07 10:31 AM PDTTelephone Encounter - Bernard Espinoza Cert MA - 02/06/2014 3:41 PM PDTPati ent called back and scheduled for 02/24/2014 with a check in time of 0930. Transferred to [facility] to load insurance. elephone Encounter - Bernard Espinoza Cert MA - 02/06/2014 2:25 PM PDTCalled [facility]. She has a new insurance that needs to be put into the system, but she still has medicare as well. Allergies and medications reviewed. Pharmacy updated. Patient doesn't have access to her calendars so she will call back when she finds a day that works for her. elephone Encounter - Megan Nielsen - 01/29/2014 3:43 PM PDTPatient called because she would like t o schedule her colonoscopy now. She stated that previously she was tied up with personal iss ues when we attempted to schedule before. She would like a call back to discuss.Electronical ly signed by Megan Nielsen at 01/29/2014 3:44 PM PDTdocumented in this encounter Plan of Treatment + + +--------+ + + | Name | Type | Priori | Associated Diagnoses | Order Schedule | | | | ty | | | + + +--------+ + + | Ambulatory referral | Outpatient | Routin | Special screening | Expected: | | to Gastroenterology | Referral | e | for malignant | 02/24/2014, Expires: | | | | | neoplasms, colon | 02/11/2015 | + + +--------+ + + documented as of this encounter Visit Diagnoses + + | Diagnosis | + + | Special screening for malignant neoplasms, colon - Primary | + + documented in this encounter"
--- OUTSIDE RECORDS SUMMARY | ~2020-01-03 | XMS | Encounter Summary ---
Demographics + + + | Address | [address] | | | [place] [address] | + + + | Home Phone [...] Team Providers + +------+ + | Care Electronic Engraver Name | Role | Phone | + +------+ + | Tom Sheppard MD | PCP | | + +------+ + Encounter Details +--------+ + + + + | Date | Type | Department | Care Team | Description | +--------+ + + + + | 02/16/ | MyChart | [facility] | Jennifer Hall, | referral for eye | | 2018 | Encounter | [facility] | ,PhD [address] | shots | | | | Oncology at [facility] | [address] | | | | | [address] | [place], [place] | | | | | [facility] | [address] | | | | | [place], [address] floor | [phone] | | | | | [place] [address] | | | | | | [phone] | | | +--------+ + + + [...] | 2019 | Visit | | ,PhD [address] | | | | | | [address] | | | | | | [place], [place] | | | | | | [address] | | | | | | [phone] | | | | | | | | +--------+---------+ + + + documented as of this encounter Visit Diagnoses Not on filedocumented in this encounter"
--- OUTSIDE RECORDS SUMMARY | ~2020-01-03 | XMS | Encounter Summary ---
Demographics + + + | Address | [address] | | | [place] [address] | + + + | Home Phone | | + + + | Preferred Language | Unknown | + + + | Marital Status | Single | + + + | Shinto Affiliation | NON | + + + [...] Team Providers + +------+ + | Care Motor Scooter Repairer Name | Role | Phone | + +------+ + | Tom Sheppard MD | PCP | | + +------+ + Reason for Visit + + + | Reason | Comments | + + + | RT Clinical | | | Treatment Planning | | | Note | | + + + Encounter Details +--------+ + + + + | Date | Type | Department | Care Team | Description | +--------+ + + + + | 11/22/ | Documentati | Radiation Oncology | Hay Henley MD | RT Clinical | | 2017 | on | at [facility] [address] | [address] [facility] | Treatment Planning | | | | [address] | [facility], | Note | | | | [place], 4th floor | [place] [address] | | | | | [place], [place] | [phone] | | | | | [address] | | | | | | [phone] | | | +--------+ + + + [...] this encounter Miscellaneous Notes Telephone Encounter - Hay Henley MD - 11/21/2016 11:56 PM PDTRT Clinical Treatment Plann ing Note Date: 11/22/2016 Clinical History: Samina Boyd is a 71 y.o. 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 To be treated with I-1 25 plaque brachytherapy using a non-notched 18mm plaque prescribed to 85Gy. Clinical treatment planning for radiation therapy includes interpretation of diagnostic ria ts, ordering of additional tests to delineate the treatment volume and surrounding normal st ructures, consideration of treatment duration and daily dose, consideration of radiation mod ality and energy, determination of the number and size of treatment ports, planning of appro priate radiation treatment devices, correlation of physical examination findings with imagin g studies and other studies to delineate the precise location of the target and sequencing i n combination of radiation treatment with other cancer therapies. Clinical treatment planning for radiation therapy includes interpretation of diagnostic ria ts, ordering of additional tests to delineate the treatment volume and surrounding normal st ructures, consideration of treatment duration and daily dose, consideration of radiation mod ality and energy, determination of the number and size of treatment ports, planning of appro priate radiation treatment devices, correlation of physical examination findings with imagin g studies and other studies to delineate the precise location of the target and sequencing i n combination of radiation treatment with other cancer therapies. Special tests interpreted: B-scan ultrasound performed at [facility] Treatment Volume: right eye Planned Total RT Dose: 85 Gy per fraction x 1 fractions Energy: Iodine-125 Beam Arrangement: brachytherapy Treatment Setup and Devices: eye plaque Dosimetry requested: Isodose Plan Special Factors: --Brachytherapy: Samina Boyd will be receiving brachytherapy as part of her treatment course. The placement of radioactive sources into the patient s body requires additional time for treatment planning, management and calibration of the sour ce, and performing the actual procedure. Special Physics Consult: Yes - Why? Eye plaque dosimetry is complicated and requires direct physicist involvement in the treatment planning and construction of the device. Setup and Localization Orders: Verification Sim, ultrasound in the [place] to verify plaque po sition documented in this encou nter Plan of Treatment +--------+---------+ + + + | Date | Type | Specialty | Care Team | Description | +--------+---------+ + + + | 03/02/ | Office | Ophthalmology | Jennifer Hall, | | | 2019 | Visit | | ,PhD [address] | | | | | | [address] | | | | | | [place], [place] | | | | | | [address] | | | | | | [phone] | | | | | | | | +--------+---------+ + + + documented as of this encounter Visit Diagnoses Not on filedocumented in this encounter"
--- OUTSIDE RECORDS SUMMARY | ~2020-01-03 | XMS | Encounter Summary ---
Demographics + + + | Address | [address] | | | [place] [address] | + + + | Home Phone | | + + + | Preferred Language | Unknown | + + + | Marital Status | Single | + + + | Advent Affiliation | NON | + + + | Race | White | + + + | Ethnic Group | Not or | + + + Author + + + | Author | [facility] | + + + | Organization | [facility] | + + + | Address | Unknown | + + + | Phone | Unavailable | + + + Support + + +---------+ + | Name | Relationship | Address | Phone | + + +---------+ + | Sheron Rivera | ECON | Unknown | | + + +---------+ + Care Team Providers + +------+ + | Care Operations Inspector Name | Role | Phone | + +------+ + | Tom Sheppard MD | PCP | | + +------+ + Encounter Details +--------+ + + + + | Date | Type | Department | Care Team | Description | +--------+ + + + + | 11/09/ | Results/Int | [facility] | Dank iL | Neoplasm of | | 2017 | erpretation | [facility] | Stephanie Montemayor MD [address] | uncertain behavior | | | | Nic Villaseñor [address] | [address] | of eye | | | | [address] | [place], [place] | | | | | Eye [facility] | [address] | | | | | floor [place], [place] | [phone] | | | | | [address] | | | +--------+ + + + [...] as of this encounter Progress Notes Jennifer Ruiz - 11/09/2016 3:17 PM Yvonne Boyd was seen in the [facility] In [facility] Photography/Ultrasound Department today, 11/09/2016, for ultrasound. B-scan of the right eye demonstrates a dome-shaped, hypoechoic choroidal mass in the tempor al mid-periphery with overlying subretinal fluid. Subtle spontaneous motion was observed dur ing dynamic examination. A-scan reveals low internal reflectivity. Measurements in flowsheets This is a Preliminary Report. It is the responsibility of the ordering physician to determi ne clinical care from image provided, or wait for official report. Jennifer RUIZ I have reviewed the images and the initial report and I have made any necessary changes to the report as needed based on my assessment. DANK LI MD documented in this encounter Plan of Treatment +--------+---------+ + + + | Date | Type | Specialty | Care Team | Description | +--------+---------+ + + + | 03/02/ | Office | Ophthalmology | Jennifer Hall, | | | 2020 | Visit | | ,PhD [address] | | | | | [address] | | | | | | [place], [place] | | | | | | [address] | | | | | | [phone] | | | | | | | | +--------+---------+ + + + documented as of this encounter Visit Diagnoses + + | Diagnosis | + + | Neoplasm of uncertain behavior of eye | + + documented in this encounter"
--- OUTSIDE RECORDS SUMMARY | ~2020-01-03 | XMS | Encounter Summary ---
Demographics + + + | Address | [address] | | | [place] [address] | + + + | Home Phone | | + + + | Preferred Language | Unknown | + + + | Marital Status | | + + + | Christian Affiliation | Unknown | + + + | Race | White | + + + | Ethnic Group | Not or | + + + Author + + + | Author | [facility] | | | and [place] | + + + | Organization | [facility] | | [...] Team Providers + +------+ + | Care Die Cast Technician Name | Role | Phone | + +------+ + | Tom Sheppard MD | PCP | | + +------+ + Encounter Details +--------+ + + + + | Date | Type | Department | Care Team | Description | +--------+ + + + + | 03/25/ | Imaging | [facility] | Provider, | | | 2019 | Exam | [facility] | MD [address] | | | | | IMAGING [address] | [place] [address] | | | | | [address] | [place] [address] | | | | | [place] [address] | | | | | | [phone] | | | +--------+ + + + [...] | CT CHEST ABDOMEN | Routin | 03/07/2019 | | Results for this | | PELVIS W WO CONTRAST | e | 12:00 AM | | procedure are in the | | | | PST | | results section. | + +--------+ + + + documented in this encounter Results CT Chest Abdomen Pelvis w wo Contrast (03/07/2019 12:00 AM PST) + + | Specimen | + + | | + + + + + | Narrative | Performed At | + + + | External films for comparison only | [facility] | | | | | No results will be in the chart. | | + + + + +---------+ + + | Performing | Address | City/State/Zipcode | Phone Number | | Organization | | | | + +---------+ + + | [facility] | | | | + +---------+ + + documented in this encounter Visit Diagnoses Not on filedocumented in this encounter"
--- OUTSIDE RECORDS SUMMARY | ~2020-01-03 | XMS | Encounter Summary ---
Demographics + + + | Address | [address] | | | [place] [address] | + + + | Home Phone [...] Author + + + | Author | [facility] | + + + | Organization | [facility] | + + + | Address | Unknown | + + + | Phone | Unavailable | + + + Support + + +---------+ + | Name | Relationship | Address | Phone | + + +---------+ + | Sheron Rivera | ECON | Unknown | | + + +---------+ + Care Team Providers + +------+ + | Care Lube Attendant Name | Role | Phone | + +------+ + | Tom Sheppard MD | PCP | | + +------+ + Encounter Details +--------+ + + + + | Date | Type | Department | Care Team | Description | +--------+ + + + + | 08/24/ | MyChart | [facility] | Jennifer Hall, | appointment in [facility] | | 2019 | Encounter | [facility] | ,PhD [address] | [place] | | | | Oncology at [facility] | [address] | | | | | [address] | [place], [place] | | | | | [address] [facility] | [address] | | | | | [place], 5th floor | [phone] | | | | | [place] [address] | | | | | | [phone] | | | +--------+ + + + [...] | 2020 | Visit | | ,PhD [address] | | | | | | [address] | | | | | | [place], [place] | | | | | | [address] | | | | | | [phone] | | | | | | | | +--------+---------+ + + + documented as of this encounter Visit Diagnoses Not on filedocumented in this encounter"
--- OUTSIDE RECORDS SUMMARY | ~2020-01-03 | XMS | Encounter Summary ---
Demographics + + + | Address | [address] | | | [place] [address] | + + + | Home Phone [...] Author + + + | Author | [facility] | + + + | Organization | [facility] | + + + | Address | Unknown | + + + | Phone | Unavailable | + + + Support + + +---------+ + | Name | Relationship | Address | Phone | + + +---------+ + | Sheron Rivera | ECON | Unknown | | + + +---------+ + Care Team Providers + +------+ + | Care Slabber Light Name | Role | Phone | + [...] + + + + | 12/12/ | Hospital | [facility] | Jennifer Hall, | | | 2017 | Encounter | STAY [address] [facility] | ,PhD [address] | | | | | Dr Alfred Mejia | [address] | | | | | [facility] | [place], [place] | | | | | [place], [place] | [address] | | | | | [address] | [phone] | | | | | | | [...] ? Uncontrolled nausea Jennifer Hall M.D., Ph.D [phone] or [phone] Arvind Gauthier M.D. [phone] or [phone] Return appointment Date: Time: documented in this [...] plaque, right eye Surgeon: Jennifer Hall MD Tap And Die Maker Technician: Colin Forrester MD Anesthesia: General Implant: I-125 [...] | 2019 | Visit | | ,PhD [address] | | | | | | [address] | | | | | | [place], [place] | | | | | | [address] | | | | | | [phone] | | | | | | | [...] Jennifer | | | Sachin Hall MD Tap And Die Maker Technician: Colin Forrester MD Anesthesia: General | | [...] +--------+------+------+ | cyclopentolate 1%-PHENYLEPHrine | Given | 12/13/19 [...] NEEDED, 1 dose, | | | Starting Mon12/12/16 at 0949, | | | Until Mon12/12/16 at 1728, | | | post-op severe pain | | + +---+ | | | + +---+ documented in this encounter"
--- OUTSIDE RECORDS SUMMARY | ~2020-01-03 | XMS | Encounter Summary ---
Demographics + + + | Address | [address] | | | [place] [address] | + + + | Home Phone | | + + + | Preferred Language | Unknown | + + + | Marital Status | | + + + | Gnosticism Affiliation | Unknown | + + + | Race | White | + + + | Ethnic Group | Not or | + + + Author + + + | Author | [facility] | | | and [place] | + + + | Organization | [facility] | | | and [...] Team Providers + +------+ + | Care Steam Shovel Runner Name | Role | Phone | + +------+ + | Tom Sheppard MD | PCP | | + +------+ + Encounter Details +--------+ + + + + | Date | Type | Department | Care Team | Description | +--------+ + + + + | 10/02/ | Orders Only | [facility] | [facility] | Endometrial cancer | | 2020 | | [facility] | J, PharmD [address] | (HCC) | | | | [facility] [address] | [address] | | | | | [address] | [place] [address] | | | | | [place] [address] | [phone] | | | | | [phone] | | | +--------+ + + + [...] | + + | Endometrial cancer (HCC) Malignant neoplasm of corpus uteri, except isthmus | + + documented in this encounter"
--- OUTSIDE RECORDS SUMMARY | ~2020-01-03 | XMS | Encounter Summary ---
Demographics + + + | Address | [address] | | | [place] [address] | + + + | Home Phone [...] + + + | Author | [facility] | + + + | Organization | [facility] | + + + | Address | Unknown | + + + | Phone | Unavailable | + + + Support + + +---------+ + | Name | Relationship | Address | Phone | + + +---------+ + | Sheron Rivera | ECON | Unknown | | + + +---------+ + Care Team Providers + +------+ + | Care Musical Therapist Name | Role | Phone | + +------+ + | Tom Sheppard MD | PCP | | + +------+ + Reason for Visit +---------+ + | Reason | Comments | +---------+ + | Post Op | | +---------+ + Other (Routine) +--------+--------+ + + + + | Status | Reason | Specialty | Diagnoses / | Referred By | Referred To | | | | | Procedures | Contact | Contact | +--------+--------+ + + + + | Closed | | Ophthalmology | Diagnoses | Bryce, | Rafael, | | | | | Malignant | Hay Hatch MD | Jennifer Stephenson, | | | | | neoplasm of | [address] | ,PhD [address] | | | | | right | [address] | [address] | | | | | choroid | [place] [address] | [address] | | | | | Procedures | [address] | | | | | NE POST-OP | Phone: | [place], [place] | | | | | FOLLOW-UP | [phone] | [address] | | | | | VISIT | Fax: | Phone: | | | | | | [phone] | [phone] | | | | | | | Fax: | | | | | | | [phone] | +--------+--------+ + + + + Encounter Details +--------+---------+ + + + | Date | Type | Department | Care Team | Description | +--------+---------+ + + + | 12/13/ | Office | [facility] | Jennifer Hall, | Choroid melanoma of | | 2016 | Visit | [facility] | ,PhD [address] | right eye (HCC) | | | | Oncology at [facility] | [address] | (Primary Dx) | | | | [address] | [facility] [place] | | | | | Dr [facility] | [address] | | | | | [place], 5th floor | [phone] | | | | | [place] [address] | | | | | | [phone] | | | +--------+---------+ + + + [...] encounter Progress Notes Jennifer Hall MD,PhD - 12/13/2016 12:20 PM PDTFormatting of this note might be differen t from the original. Return Visit Progress Note 12/13/2016 CC: Post Op HPI: Samina Boyd is a 71 y.o. female here for postop care after I-125 eye plaque , right eye. Samina reports she has some minor discomfort in her eye. Took one ibuprofen y afternoon, 3:00pm. No pain medication today. Comfortable in primary gaze. Accomp anied today by her sister, Sheron. HPI: Here for POD1 visit. Mild pain OD. No other complaints. 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 Maxitrol TID. Strandquist, ibuprofen, and zofran as needed for pain and nausea. Pos t-operative and radiation precautions reviewed. F/u for plaque removal as scheduled, sooner PRN. I reviewed all components above, made necessary revisions and performed critical portions o f the history and examination. Jennifer Hall MD PhD Forest Fire Prevention Specialist, Department of Ophthalmology [facility] [phone] documented in th is encounter Plan of Treatment +--------+---------+ + + + | Date | Type | Specialty | Care Team | Description | +--------+---------+ + + + | 03/02/ | Office | Ophthalmology | Jennifer Hall, | | | 2019 | Visit | | ,PhD [address] | | | | | [address] | | | | | | [place], [place] | | | | | | [address] | | | | | | [phone] | | | | | | | | +--------+---------+ + + + documented as of this encounter Visit Diagnoses + + | Diagnosis | + + | 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
--- OUTSIDE RECORDS SUMMARY | ~2020-01-03 | XMS | Encounter Summary ---
Demographics + + + | Address | [address] | | | [place] [address] | + + + | Home Phone | | + + + | Preferred Language | Unknown | + + + | Marital Status | Single | + + + | Restoration Affiliation | NON | + + + [...] Team Providers + +------+ + | Care Roll Edge Machine Operator Name | Role | Phone | [...] Pre-Admission | | 2017 | Orders | [facility] | ,PhD [address] | | | | | Oncology at [facility] | [address] | | | | | [address] | [place], [place] | | | | | Dr [facility] | [address] | | | | | [address] | [phone] | | | | | [place] [address] | | | | | | [phone] | | | +--------+ + + + [...] | 2019 | Visit | | ,PhD [address] | | | | | | [address] | | | | | | [place], [place] | | | | | | [address] | | | | | | [phone] | | | | | | | | +--------+---------+ + + + documented as of this encounter Visit Diagnoses Not on filedocumented in this encounter"
--- OUTSIDE RECORDS SUMMARY | ~2020-01-03 | XMS | Clinical Summary ---
Demographics + + + | Address | [address] | | | [place] [address] | + + + | Home Phone [...] Author + + + | Author | [facility] | + + + | Organization | [facility] | + + + | Address | Unknown | + + + | Phone | Unavailable | + + + Support + + +---------+ + | Name | Relationship | Address | Phone | + + +---------+ + | Sheron Rivera | ECON | Unknown | | + + +---------+ + Care Team Providers + +------+ + | Care Denitrator Operator Name | Role | Phone | + +------+ + | Tom Sheppard MD | PCP | | + +------+ + Source Comments JANNET is fully live on both [facility] and [facility] Allergies + + + + + + | Active Allergy | Reactions | Severity | Noted | Comments | | | | | Date | | + + + + + + | Clams | Unknown | | 11/10/19 | | | | | | 17 | | + + + + + + | Oyster Extract | Unknown | | 11/10/19 | | | | | | 17 | | + + + + + + Medications + + + +---------+------+------+-------+ | Medication | Sig | Dispensed | Refills | Star | End | Statu | | | | | | t | Date | s | | | | | | Date | | | + + + +---------+------+------+-------+ | amLODIPine 5 mg | Take 5 mg by mouth | | 3 | 10/22 | | Activ | | oral tablet | once daily. | | | 05/13 | | e | | | | | | 17 | | | + + + +---------+------+------+-------+ | | Take 12.5 mg by | | 1 | 06/0 | | Activ | | hydroCHLOROthiazide | mouth once daily. | | | 20 | | e | | 12.5 mg oral capsule | | | | 17 | | | + + + +---------+------+------+-------+ | Glucosamine | Take by mouth. | | 0 | | | Activ | | Sulfate (MALICK) 750 | | | | | | e | | mg oral tablet | | | | | | | + + + +---------+------+------+-------+ | MULTIVITAMIN ORAL | Take by mouth. | | 0 | | | Activ | | | | | | | | e | + + + +---------+------+------+-------+ | CALCIUM | Take by mouth. | | 0 | | | Activ | | CARBONATE/VITAMIN D3 | | | | | | e | | (VITAMIN D-3 ORAL) | | | | | | | + + + +---------+------+------+-------+ | | Take by mouth. | | 0 | | | Activ | | FA/NIACINAMIDE/CUPRI | | | | | | e | | C OX/ZN OX | | | | | | | | (NICOTINAMIDE ORAL) | | | | | | | + + + +---------+------+------+-------+ Active Problems + + + | Problem | Noted Date | + + + | Choroid melanoma of right eye | 11/21/2016 | + + + + + | Overview: Formatting of this note might be different from the | | original.Date AST ALT AlkPhos TBili CXR Abdomen PCP 11/18/16 wnl | | wnl wnl wnl CT-neg CT-neg cleared for surgery | + + + + + | Neoplasm of uncertain behavior of eye | 11/09/2016 | + + + Family History + + +------+ + | Medical History | Relation | Name | Comments | + + +------+ + | None | Brother | | | + + +------+ + | None | Child | | | + + +------+ + | None | Father | | | + + +------+ + | Heart Disease | Mother | | | + + +------+ + | None | Other | | | + + +------+ + | None | Sister | | | + + +------+ + | Amblyopia | Neg Hx | | | + + +------+ + | Blindness | Neg Hx | | | + + +------+ + | Cancer | Neg Hx | | | + + +------+ + | Cataracts | Neg Hx | | | + + +------+ + | Diabetes | Neg Hx | | | + + +------+ + | Glasses | Neg Hx | | | + + +------+ + | Glaucoma | Neg Hx | | | + + +------+ + | Macular degeneration | Neg Hx | | | + + +------+ + | Retinal detachment | Neg Hx | | | + + +------+ + | Retinitis pigmentosa | Neg Hx | | | + + +------+ + | Strabismus | Neg Hx | | | + + +------+ + + +------+--------+ + | Relation | Name | Status | Comments | + +------+--------+ + | Brother | | | | + +------+--------+ + | Child | | | | + +------+--------+ + | Father | | | | + +------+--------+ + | Mother | | | | + +------+--------+ + | Other | | | | + +------+--------+ + | Sister | | | | + +------+--------+ + [...] + + + + Plan of Treatment +--------+---------+ + + + | Date | Type | Specialty | Care Team | Description | +--------+---------+ + + + | 03/02/ | Office | Ophthalmology | Jennifer Hall, | | | 2019 | Visit | | ,PhD [address] | | | | [address] | | | | | | [place], [place] | | | | | | [address] | | | | | | [phone] | | | | | | | | +--------+---------+ + + + + + + + + | Health Maintenance | Due Date | Last | Comments | | | | Done | | + + + + + | Pneumococcal | | 02/13/20 | | | vaccination (2 of 2 | 0 | 19, | | | - PPSV23) | | 04/24/19 | | | | | 19 | | + + + + + | Influenza (Flu) | | 02/13/20 | | | vaccination (#1) | 0 | 19, | | | | | 04/24/19 | | | | | 19, | | | | | 02/07/20 | | | | | 11 | | + + + + + Implants + +------+--------+ +--------+--------+--------+ | Explanted | Type | Area | Manufacture | Device | Shelf | Model | | | | | r | | Expira | / | | | | | | Identi | tion | Serial | | | | | | fier | Date | / Lot | + +------+--------+ +--------+--------+--------+ | Radioactive PlaqueExplanted: | | Right: | | | | | | Qty: 1 on 12/16/2016 by | | Eye | | | | | | Jennifer Hall MD,PhD at | | | | | | | | [facility] | | | | | | | + +------+--------+ +--------+--------+--------+ Results Not on filefrom Last 3 Months Insurance + +--------+ +--------+ + +--------+ | Payer | Benefi | Subscriber | Effect | Phone | Address | Type | | | t Plan | ID | guilherme | | | | | | / | | Dates | | | | | | Group | | | | | | + +--------+ +--------+ + +--------+ | MEDICARE | MEDICA | [id number] | 08/23/19 | [phone] | [address] | [address] | | | RE A & | | 10-Pre | 1 | [address] | re | | | B | | sent | | [place], [place] | | | | | | | | [address] | | + +--------+ +--------+ + +--------+ | | [employer] | [id number] | 04/24/19 | [phone] | | Indemn | | | A | | 17-Pre | 7 | | ity | | | | | sent | | | | + +--------+ +--------+ + +--------+ + +--------+ +--------+ + + | Guarantor [...] Eloise | [place] | | 1946 | [phone] | [place] [address] | | | vignesh | | | 1 (Home) | | + +--------+ +--------+ + +
--- OUTSIDE RECORDS SUMMARY | ~2020-01-03 | XMS | Encounter Summary ---
Demographics + + + | Address | [address] | | | [place] [address] | + + + | Home Phone | | + + + | Preferred Language | Unknown | + + + | Marital Status | Single | + + + | Alevism Affiliation | NON | + + + | Race | White | + + + | Ethnic Group | Not or | + + + Author + + + | Author | [facility] | + + + | Organization | [facility] | + + + | Address | Unknown | + + + | Phone | Unavailable | + + + Support + + +---------+ + | Name | Relationship | Address | Phone | + + +---------+ + | Sheron Rivera | ECON | Unknown | | + + +---------+ + Care Team Providers + +------+ + | Care Import Export Coordinator Name | Role | Phone | + +------+ + | Tom Sheppard MD | PCP | | + +------+ + Encounter Details +--------+ + + + + | Date | Type | Department | Care Team | Description | +--------+ + + + + | 02/08/ | MyChart | [facility] | Jennifer Hall, | RE: shots for | | 2017 | Encounter | Anais Ocular | ,PhD [address] | swelling in eye | | | | Oncology at [facility] | [address] | | | | | [address] [place] | [place], [place] | | | | | Dr [facility] | [address] | | | | | [place], 5th floor | [phone] | | | | | [place] [address] | | | | | | [phone] | | | +--------+ + + + [...] | 2019 | Visit | | ,PhD [address] | | | | | | [address] | | | | | | [place], [place] | | | | | | [address] | | | | | | [phone] | | | | | | | | +--------+---------+ + + + documented as of this encounter Visit Diagnoses Not on filedocumented in this encounter"
--- OUTSIDE RECORDS SUMMARY | ~2020-01-03 | XMS | Encounter Summary ---
Demographics + + + | Address | [address] | | | [place] [address] | + + + | Home Phone [...] Team Providers + +------+ + | Care Natural Resource Technician Name | Role | Phone | + +------+ + | Tom Sheppard MD | PCP | | + +------+ + Encounter Details +--------+ + + + + | Date | Type | Department | Care Team | Description | +--------+ + + + + | 02/08/ | MyChart | [facility] | Jennifer Hall, | flu shot | | 2018 | Encounter | Anais Ocular | ,PhD [address]73 | | | | | Oncology at [facility] | [address] | | | | | [address] | [place], [place] | | | | | Dr [facility] | [address] | | | | | [place], 5th floor | [phone] | | | | | [place] [address] | | | | | | [phone] | | | +--------+ + + + [...] | 2019 | Visit | | MDPhD [address] | | | | | | [address] | | | | | | [place], [place] | | | | | | [address] | | | | | | [phone] | | | | | | | | +--------+---------+ + + + documented as of this encounter Visit Diagnoses Not on filedocumented in this encounter"
--- OUTSIDE RECORDS SUMMARY | ~2020-01-03 | XMS | Encounter Summary ---
Demographics + + + | Address | [address] | | | [place] [address] | + + + | Home Phone | | + + + | Preferred Language | Unknown | + + + | Marital Status | | + + + | Yazidi Affiliation | Unknown | + + + | Race | White | + + + | Ethnic Group | Not or | + + + Author + + + | Author | [facility] | | | and [place] | + + + | Organization | [facility] | | | [...] Team Providers + +------+ + | Care Cookee Name | Role | Phone | + +------+ + | Tom Sheppard MD | PCP | | + +------+ + Encounter Details +--------+ + + + + | Date | Type | Department | Care Team | Description | +--------+ + + + + | 02/12/ | Abstract | [facility] | Jamaal Bui MD | | | 2013 | | GASTROENTEROLOGY | [address], [place] | | | | | [address] [place] | [address] | | | | | [address] | [address] | | | | | [address] | | | | | | [phone] | | | +--------+ + + + [...] Comments | + + +---------+ + | Not Asked | | | | + + +---------+ [...] + + + | Blood Pressure | 160/80 | 09/30/2013 2:38 PM | | | | | PDT | | + + + + + | Pulse | 68 | 09/30/2013 2:38 PM | | | | | PDT | | + + + + + | Temperature | - | - | | + + + + + | Respiratory Rate | 12 | 09/30/2013 2:38 PM | | | | | PDT | | + + + + + | Oxygen Saturation | - | - | | + + + + + | Inhaled Oxygen | - | - | | | Concentration | | | | + + + + + | Weight | 76.7 kg (169 lb) | 09/30/2013 2:38 PM | | | | | PDT | | + + + + + | Height | 172.7 cm (5' 8") | 09/30/2013 2:38 PM | | | | | PDT | | + + + + + | Body Mass Index | 25.7 | 09/30/2013 2:38 PM | | | | | PDT | | + + + + + documented in this encounter Plan of Treatment Not on filedocumented as of this encounter Visit Diagnoses Not on filedocumented in this encounter
--- OUTSIDE RECORDS SUMMARY | ~2020-01-03 | XMS | Encounter Summary ---
Demographics + + + | Address | [address] | | | [place] [address] | + + + | Home Phone | | + + + | Preferred Language | Unknown | + + + | Marital Status | Single | + + + | Yazidism Affiliation | NON | + + + [...] Team Providers + +------+ + | Care Healthcare Account Manager Name | Role | Phone | [...] neoplasm of | [address] | ,PhD [address] | | | | | right | [address] | [address] | | | | | choroid | [address] | [address] | | | | | Procedures | [address] | | | | | [place] POST-OP | Phone: | [place], [place] | | | | | FOLLOW-UP | [phone] | [address] | | | | | VISIT | Fax: | Phone: | | | | | | [phone] | [phone] | | | | | | | Fax: | | | | | | | [phone] | +--------+--------+ + + + + Encounter Details +--------+---------+ + + + | Date | Type | Department | Care Team | Description | +--------+---------+ + + + | 12/28/ | Office | [facility] | Jennifer Hall, | 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 | Visit | Anais Ocular | ,PhD [address] | right eye (HCC) | | | | Oncology at [facility] | [address] | (Primary Dx) | | | | [address] | [facility] [place] | | | | | Dr [facility] | [address] | | | | | [place], 5th floor | [phone] | | | | | [place] [address] | | | | | | [phone] | | | +--------+---------+ + + + [...] Instructions Patient Instructions Jennifer Hall MD,PhD - 12/28/2016 8:30 AM PDTInstructions: --Stop antibiotic/steroid ointment --Begin artificial tears eye drops and/or ointment as needed for discomfort/foreign body se nsation --Avoid heavy lifting, bending over, straining until 2 weeks after the most recent surgery --Avoid eye rubbing; wear eye shield at night until stitches have dissolved --Return for follow-up visit in 6 months --Call your local eye care provider or us at [phone] with any concerns that may arise before your next scheduled visit Uveal Melanoma Surveillance Imaging Guidelines for Low Risk Patients AJCC clinical stage at diagnosis: Stage I ([id number]) Gene expression profile class: not performed All patients treated for uveal melanoma are [...] multidisciplinary melanoma team, the general guidelines at [facility] for asymptomatic patients without prior imaging findings [...] encounter Progress Notes Jennifer Hall MD,PhD - 12/28/2016 8:30 AM PDTFormatting of this note might be differen t from the original. Return Visit Progress Note 12/28/2016 CC: Post Op HPI: Samina Boyd is a 71 y.o. 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 Itchy eyes, otherwise no complaint. Accompanied today by sister, Sheron. HPI: Here for routine f/u. No new concerns regarding eyes/vision. 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 Medications: Current Outpatient Prescriptions (Ophthalmic Medications) Medication [id number]-[id number]-[id number] Current Outpatient Prescriptions (Other) Medication amLODIPine CALCIUM CARBONATE/VITAMIN D3 (VITAMIN D-3 ORAL) FA/NIACINAMIDE/CUPRIC OX/ZN OX (NICOTINAMIDE ORAL) Glucosamine Sulfate hydroCHLOROthiazide MULTIVITAMIN ORAL Examination: 12/28/2016 Va sc Va cc PH IOP 8:00 AM Right Eye 20/40-1+1 NI 13 Left Eye 20/25+2 17 A&O x 3 Initial hx, allergies, meds, Va, IOP and above exam elements reviewed / performed by Destini VITAL OD External Normal Lids mild ptosis Conj sutures loosening; mild temporal dehiscence with muscle remaining covered; epitheliali zed Cornea All layers clear AC Deep and quiet Iris Normal Lens 1-2+ NSC Gonio Comments: DFE OD Vit:Normal D: Normal M:Moderately elevated variably pigmented choroidal mass in the temporal macula with overlyi ng SRF and mild lipofuscin Vessels: Normal P:Otherwise normal, attached Assessment and Plan: Choroidal melanoma, right eye, 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 D/c maxitrol. Begin AT gtts/kelsey PRN. Post-operative precauti ons reviewed including shield at night. --Discussed recommendation for metastatic surveillance imaging with PCP or medical oncologi st. She prefers to see her PCP for this purpose and will call to discuss/set up an appointme nt. General recommendations are provided below. --RTC approximately 6 months for evaluation of treatment effect, sooner PRN. Uveal Melanoma Surveillance Imaging Guidelines for Low Risk Patients AJCC clinical stage at diagnosis: Stage I ([id number]) Gene expression profile class: not performed All patients treated for uveal melanoma are [...] multidisciplinary melanoma team, the general guidelines at [facility] for asymptomatic patients without prior imaging findings [...] history and examination. 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
--- OUTSIDE RECORDS SUMMARY | ~2020-01-03 | XMS | Encounter Summary ---
Demographics + + + | Address | [address] | | | [place] [address] | + + + | Home Phone | | + + + | Preferred Language | Unknown | + + + | Marital Status | Single | + + + | Hoahaoism Affiliation | NON | + + + | Race | White | + + + | Ethnic Group | Not or | + + + Author + + + | Author | [facility] | + + + | Organization | [facility] | + + + | Address | Unknown | + + + | Phone | Unavailable | + + + Support + + +---------+ + | Name | Relationship | Address | Phone | + + +---------+ + | Sheron Rivera | ECON | Unknown | | + + +---------+ + Care Team Providers + +------+ + | Care Emergency Management Specialist Name | Role | Phone | [...] + + + + | 12/16/ | Anesthesia | [facility] INTRA OP LOC | Sudheer Saleh, | | | 2017 | Event | [address] | [place], | | | | | [facility] | MEAT SUPERVISOR [address] [facility] | | | | | [place] [address] | [address] | | | | | | [place], [place] | | | | | | [address] | | | | | | [phone] | | | | | | | | +--------+ + + + + Anesthesia Record + + + + + | Procedure Name | Responsible | Anesthesia Start | Anesthesia Stop Time | | | Anesthesiologist | Time | | + + + + + | I-125 PLAQUE REMOVAL | Sudheer Saleh MD | 12/16/16 1253 | 12/16/16 1340 | | RIGHT (Right Eye) | | | | + + + + + +----+---+ + + | Da | T | Event | Comment | | te | i | | | | | m | | | | | e | | | +----+---+ + + | 08 | 1 | Eq Check | Anesthesia machine checked Equipment verified | | /2 | 2 | | | | 5/ | 3 | | | | 20 | 5 | | | | 17 | | | | +----+---+ + + | | 1 | | | | | 2 | | | | | 5 | | | | | 3 | | | +----+---+ + + | | 1 | Pt. Check | Prior to anesthesia start, pt. Identified, examined, chart | | | 2 | | reviewed, PARQ held, anesthetic plan made or approved by | | | 5 | | attending anesthesiologist. NPO status confirmed as appropriate | | | 3 | | for procedure Preoperative evaluation: unchanged | +----+---+ + + | | 1 | An Start | | | | 2 | | | | | 5 | | | | | 3 | | | +----+---+ + + | | 1 | An Start | | | | 2 | Data | | | | 5 | | | | | 4 | | | +----+---+ + + | | 1 | Quick CEI | a) Monitors Placed b) Arms <90 degrees c) Warm Blankets placed | | | 2 | | Upper and Lower Body d) Bed Turned 90 Degrees | | | 5 | | | | | 5 | | | +----+---+ + + | | 1 | O2 by NC | | | | 2 | | | | | 5 | | | | | 5 | | | +----+---+ + + | | 1 | Abx held | | | | 2 | Not Ordered | | | | 5 | | | | | 9 | | | +----+---+ + + | | 1 | Ready | | | | 2 | | | | | 5 | | | | | 9 | | | +----+---+ + + | | 1 | Timeout | | | | 3 | | | | | 0 | | | | | 0 | | | +----+---+ + + | | 1 | Retrobulbar | | | | 3 | Block by | | | | 0 | Surgeon | | | | 2 | | | +----+---+ + + | | 1 | Incision | | | | 3 | | | | | 1 | | | | | 4 | | | +----+---+ + + | | 1 | an irene now | | | | 3 | | | | | 1 | | | | | 5 | | | +----+---+ + + | | 1 | Surgery end | | | | 3 | | | | | 3 | | | | | 4 | | | +----+---+ + + | | 1 | an stop | | | | 3 | data | | | | 3 | | | | | 6 | | | +----+---+ + + | | 1 | PACU Rpt | | | | 3 | Given | | | | 4 | | | | | 0 | | | +----+---+ + + | | 1 | Anesthesia | | | | 3 | End | | | | 4 | | | | | 0 | | | +----+---+ + + +------+ | Meds | +------+ + + + | Name | Total | + + + | propofol | 40 mg | + + + | fentaNYL | 50 mcg | + + + | propofol INF | 67,462.5 mcg | + + + | lidocaine 2% | 30 mg | + + + | midazolam | 2 mg | + + + | lactated Ringers IV | 200 mL | + + + + + | Name | + + | O2 Flow Rate (Total Liters) | + + + + | No blood administrations on file. | + + +--------+ + + + | Type | Details | Placement | Removal | +--------+ + + + | Periph | 12/16/16; Right; Antecubital; 20 | 12/16/16 0000 by | 12/16/16 1358 by | | elliel | g; None; No; Positive; 12/16/16; | Lucia Marin RN | Barbra Clemente RN | | IV | 1358 | | | +--------+ + + + | Incisi | 12/16/16; 1345; Right; eye; | 12/16/16 1345 by | 12/16/16 1358 by | | on | 12/16/16; 1358 | Barbra Clemente RN | Barbra Clemente RN | +--------+ + + + documented [...] encounter OR Notes Anesthesia Postprocedure Evaluation - Russell Hess CRNA - 12/16/2016 1:40 PM PDTFormatti ng of this note might be different from the original. Samina Boyd [id number] Allergies Allergen Reactions Clams Unknown Oyster Extract Unknown Past Surgical History Procedure Laterality Date Carpal tunnel surgery Right 2013 Knee arthroscopy Right 2006 Temp: 36.4 C (97.6 F) Pulse: 58 Resp: 16 BP: 150/72 SpO2: 100 % Evaluation Patient personally seen and evaluated for recovery from anesthesia care, VS including tempe rature and hydration status are normal and ROS including card, resp, Neuro, and GI w/o evide nce of adverse effects Complications nesthesia Preprocedu re Evaluation - Sudheer Saleh MD - 12/16/2016 12:30 PM PDTFormatting of this note might b e different from the original. 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 12/16/2016 VITAMIN D-3 ORAL Take by mouth. 12/15/2016 NICOTINAMIDE ORAL Take by mouth. 12/15/2016 GLUCOSAMINE SULFATE 750 MG TABLET Take by mouth. 12/15/2016 HYDROCHLOROTHIAZIDE 12.5 MG CAPSULE Take 12.5 mg by mouth once daily. 12/15/2016 HYDROCODONE 5 MG-ACETAMINOPHEN 325 MG TABLET Take 1-2 tablets by mouth every four hours as needed (mild pain). Not Taking IBUPROFEN 600 MG TABLET Take 1 tablet by mouth three times daily. 12/16/2016 MULTIVITAMIN ORAL Take by mouth. 12/15/2016 NEOMYCIN 3.5 MG/G-POLYMYXIN B 10,000 UNIT/G-DEXAMETH 0.1 % EYE OINT Instill 0.5 inches into the right eye four times daily. 12/16/2016 ONDANSETRON 4 MG TABLET DISSOLVED ON THE TONGUE Dissolve 1 tablet in mouth every six hours as needed for nausea/vomiting. Not Taking No results found for: RATE, ATRIALRATE, NH, QRS, QT, QTC, PAXIS, RAXIS, TAXIS, EKGDX Preoperative Adult Anesthesia Plan Last edited 12/16/16 1222 by Sudheer Saleh MD ROS Pertinent HPI: 71 y.o. Female with HTN here for removal of radioactive plaque for IOL melanoma. No history of anesthetic complications, had GA with LMA on 12/12/16 for placement of radioactive plaque. Pulmonary: Within Defined Limits except as noted [...] Neuro/Psych: alert Integument: - lesion Implants: None, Agree 1222 Revision History Date/Time User Provider Type Action > 12/16/16 1222 Sudheer Saleh MD Anesthesiologist Sign 12/16/16 0748 Russell Hess CRNA Nurse [place] Pumper Share Anesthesia Plan Comments ASA ASA 2 NPO Status NPO Status: NPO by protocol Monitors/Lines to be used Standard Anesthetic Consideration Induction intravenous induction Anesthetic Technique General and Monitored Anesthesia Care; Obstetric Anesthesia Post-Op Pain Plan Blood Products Interpretive Services Informed Consent PARQ discussed with: patient, Procedures, Alternatives, Risks, and Questions discussed and Risk/benefit of anesthesia plan and blood product discussed ; ; Date Consent Series Given: 12/16/2016 12:30 PM Code status in OR Patients Code Status in OR: FULL 12/16 12:30 PM Consented patient for MAC and GA as backup.Electronically signed by Sudheer Saleh MD at 0 12/16/2016 12:31 PM PDTdocumented in this encounter Miscellaneous Notes PMC/ANE PreOp Note - Sudheer Saleh MD - 12/16/2016 7:47 AM PDT ROS Pertinent HPI: 71 y.o. Female with HTN here for removal of radioactive plaque for IOL melan aris. No history of anesthetic complications, had GA with LMA on 12/12/16 for placement of rad ioactive plaque. Pulmonary: Within Defined Limits except as noted [...] Neuro/Psych: alert Integument: - lesion Implants: None, Agree documented in is encounter Plan of Treatment +--------+---------+ + + + | Date | Type | Specialty | Care Team | Description | +--------+---------+ + + + | 03/02/ | Office | Ophthalmology | Jennifer Hall, | | | 2019 | Visit | | ,PhD [address] | | | | | | [address] | | | | | | [place], [place] | | | | | | [address] | | | | | | [phone] | | | | | | | | +--------+---------+ + + + documented as of this encounter Visit Diagnoses Not on filedocumented in this encounter Administered Medications + +--------+ +--------+------+------+ | Medication Order | MAR | Action | Dose | Rate | Site | | | Action | Date | | | | + +--------+ +--------+------+------+ | fentaNYL citrate (PF) | Given | 12/17/19 | 50 mcg | | | | (SUBLIMAZE) injection | | 17 1:01 | | | | | INTRAPROCEDURE PRN, Starting Fri | | PM PDT | | | | | 12/16/16 at 1301, Until Fri | | | | | | | 12/16/16 at 1336 | | | | | | + +--------+ +--------+------+------+ +---+---+ | | | +---+---+ + + + +---+---+---+ | lactated Ringers IV 10 mL/hr, | given by | 12/17/19 | | | | | intravenous, CONTINUOUS, Starting | | 17 1:29 | | | | | 12/16/16 at 1215, Until Fri | anesthes | PM PDT | | | | | 12/16/16 at 1958 | iology | | | | | + + + +---+---+---+ +---------+ + + +---+ | New Bag | 12/17/19 | 10 mL/hr | 10 mL/hr | | | | 17 12:01 | | | | | | PM PDT | | | | +---------+ + + +---+ +---+---+ | | | +---+---+ + +-------+ +-------+---+---+ | lidocaine (XYLOCAINE MPF) 2 % | Given | 12/17/19 | 30 mg | | | | (20 mg/mL) injection | | 17 1:01 | | | | | INTRAPROCEDURE PRN, Starting Fri | | PM PDT | | | | | 12/16/16 at 1301, Until Fri | | | | | | | 12/16/16 at 1336 | | | | | | + +-------+ +-------+---+---+ +---+---+ | | | +---+---+ + +-------+ +------+---+---+ | midazolam (VERSED) injection | Given | 12/17/19 | 1 mg | | | | INTRAPROCEDURE PRN, Starting Fri | | 17 1:13 | | | | | 12/16/16 at 1255, Until Fri | | PM PDT | | | | | 12/16/16 at 1336 | | | | | | + +-------+ +------+---+---+ +-------+ +------+---+---+ | Given | 12/17/19 | 1 mg | | | | | 17 12:55 | | | | | | PM PDT | | | | +-------+ +------+---+---+ +---+---+ | | | +---+---+ + + + + +--------+---+ | propofol (DIPRIVAN) injection | Rate/Dos | 12/17/19 | 25 | 11.57 | | | INTRAPROCEDURE CONTINUOUS PRN, | e Change | 17 1:17 | mcg/kg/m | mL/hr | | | Starting 12/16/16 at 1305, | | PM PDT | in | | | | Until 12/16/16 at 1336 | | | | | | + + + + +--------+---+ +---------+ + +--------+---+ | New Bag | 12/17/19 | 50 | 23.13 | | | | 17 1:05 | mcg/kg/m | mL/hr | | | | PM PDT | in | | | +---------+ + +--------+---+ +---+---+ | | | +---+---+ + +-------+ +-------+---+---+ | propofol INTRAPROCEDURE PRN, | Given | 12/17/19 | 40 mg | | | | Starting Mon12/16/16 at 1301, | | 17 1:01 | | | | | Until Mon12/16/16 at 1336 | | PM PDT | | | | + +-------+ +-------+---+---+ +---+---+ | | | +---+---+ documented in this encounter"
[~2020-01-03 14:01] MED LIST changes: +ZOLPIDEM TARTRA10 MG PO
--- OUTSIDE RECORDS SUMMARY | 2020-01-03 14:04 | XMS ---
PreManage Notification: LUIS IGLESIAS Security Cancer Genetic Counselor Events No recent Security Events currently on file CRITERIA MET - PRETTY - [facility] - 2 Visits in 30 Days CARE PROVIDERS ADRIANNE Balderrama MD, JIM Scoop Driver/Analytical Lead Current PHONE: [phone] ESTRLELA ESCALANTE Scoop Driver/Analytical Lead 01/01/2020-Current PHONE: [phone] Lisa has no Care Guidelines for this patient. E.Cruz VISIT COUNT (12 MO.) 2 [facility] TOTAL 2 NOTE: Visits indicate total known visits. ED/UCC VISIT TRACKING (12 MO.) 01/03/2020 14:02 ELADIO [facility] [place] TYPE: Emergency COMPLAINT: - SOB 12/28/2019 10:03 ELADIO Tapia [place] TYPE: Emergency COMPLAINT: - WEAKNESS, DIZZYNESS DIAGNOSES: - Dizziness and giddiness - Essential (primary) hypertension - Allergy to seafood - Dehydration - Other mcc (current) drug therapy - Orthostatic hypotension INPATIENT VISIT TRACKING (12 MO.) 04/12/2019 08:28 Darren Lu [place] TYPE: Surgery DIAGNOSES: - Malignant neoplasm of uterus, part unspecified [email or web address]
[2020-01-03] MEDS ORDERED: LEXAPRO5 MG PO (14:41)
== END 2020-01-03 19:06 | disposition home or self-care (01) ==
LOC: ED 14:01
DX: R06.00 Dyspnea, unspecified (principal); I10 Essential (primary) hypertension; Z91.013 Allergy to seafood; Z79.899 Other long term (current) drug therapy; Z85.42 Personal history of malignant neoplasm of other parts of uterus
CPT/HCPCS: 99284